=== PATIENT | male | born 1935 | race African-American/Black ===

== ENCOUNTER → 2016-11-04 | Outpatient (CLI) | payer MEDICARE ==
[~2016-11-04] MED LIST: AMLO5TAB22 PO; AZIT500T2 PO; CEFU1TAB20 PO; CLOP75 PO; CRES10TA OR; DOXA1 PO; LISI10TA PO; LISI10TA3 PO; LISI40TA PO; METO50TA11 PO; PLAV75TA29 PO; ROSU10 PO; ST JTAB PO; UMEC1AER INH; VIAG50TA PO; WARF-18 PO
[2016-11-04 08:58] LABS: MEAN CELL VOLUME 75.5 FL (80.0-100.0); MEAN CORPUSCULAR HEMOGLOBIN 24.8 PG (27.0-34.0); MEAN CORPUSCULAR HGB CONC 32.9 % (32.0-36.0); PLATELET COUNT 205 TH/MM3 (150-450); RED BLOOD COUNT 4.91 MIL/MM3 (4.50-5.90); RED CELL DISTRIBUTION WIDTH 14.8 % (11.6-17.2); WHITE BLOOD COUNT 5.3 TH/MM3 (4.0-11.0)
[2016-11-04 08:59] LABS: REVIEW FLAG FINAL
[2016-11-04 09:33] LABS: ALKALINE PHOSPHATASE 79 U/L (45-117); ALT (GPT) 23 U/L (12-78); ANION GAP 7 MEQ/L (5-15); AST (GOT) 28 U/L (15-37); BICARBONATE 30.4 MEQ/L (21.0-32.0); BLOOD UREA NITROGEN 31 MG/DL (7-18); CHLORIDE 102 MEQ/L (98-107); GLOMERULAR FILTRATION RATE 63 ML/MIN (>89); GLUCOSE,FASTING 107 MG/DL (74-99); HDL CHOLESTEROL 49.3 MG/DL (40.0-60.0); LDL CHOLESTEROL 58 MG/DL (0-99); LDL CHOLESTEROL DIRECT 63 MG/DL (0-99); POTASSIUM 4.1 MEQ/L (3.5-5.1); SODIUM (NA) 139 MEQ/L (136-145); TOTAL BILIRUBIN ADULT 0.5 MG/DL (0.2-1.0)
[2016-11-04 17:04] LABS: HEMOGLOBIN A1a 1.2 %; HEMOGLOBIN A1b 2.3 %; HEMOGLOBIN Ao 82.4 %; HEMOGLOBIN LA1C 2.3 %; HEMOGLOBIN P3 6.2 %
== END ==
LOC: CLAB 08:07
PROVIDERS: ATTEND Family Medicine
DX: E11.9 Type 2 diabetes mellitus without complications (principal); E78.2 Mixed hyperlipidemia; I10 Essential (primary) hypertension; I73.9 Peripheral vascular disease, unspecified; L85.0 Acquired ichthyosis
CPT/HCPCS: 36415; 80053; 80061; 83036; 83721; 84443; 85027

== ENCOUNTER → 2017-02-03 | Outpatient (CLI) | payer MEDICARE ==
[2017-02-03 08:53] LABS: HEMATOCRIT 35.8 % (39.0-51.0); MEAN CELL VOLUME 74.3 FL (80.0-100.0); MEAN CORPUSCULAR HEMOGLOBIN 23.6 PG (27.0-34.0); MEAN CORPUSCULAR HGB CONC 31.8 % (32.0-36.0); PLATELET COUNT 258 TH/MM3 (150-450); RED BLOOD COUNT 4.82 MIL/MM3 (4.50-5.90); RED CELL DISTRIBUTION WIDTH 15.5 % (11.6-17.2); WHITE BLOOD COUNT 5.8 TH/MM3 (4.0-11.0)
[2017-02-03 08:54] LABS: REVIEW FLAG FINAL
[2017-02-03 09:24] LABS: ALKALINE PHOSPHATASE 91 U/L (45-117); ALT (GPT) 21 U/L (12-78); ANION GAP 6 MEQ/L (5-15); AST (GOT) 27 U/L (15-37); BICARBONATE 29.9 MEQ/L (21.0-32.0); BLOOD UREA NITROGEN 24 MG/DL (7-18); CHLORIDE 104 MEQ/L (98-107); GLOMERULAR FILTRATION RATE 59 ML/MIN (>89); GLUCOSE,FASTING 103 MG/DL (74-99); HDL CHOLESTEROL 47.5 MG/DL (40.0-60.0); LDL CHOLESTEROL 62 MG/DL (0-99); LDL CHOLESTEROL DIRECT 56 MG/DL (0-99); POTASSIUM 4.8 MEQ/L (3.5-5.1); SODIUM (NA) 140 MEQ/L (136-145); TOTAL BILIRUBIN ADULT 0.5 MG/DL (0.2-1.0)
[2017-02-03 11:32] LABS: HEMOGLOBIN A1a 1.2 %; HEMOGLOBIN A1b 2.2 %; HEMOGLOBIN Ao 82.7 %; HEMOGLOBIN LA1C 2.3 %; HEMOGLOBIN P3 6.2 %
== END ==
LOC: CLAB 08:04
PROVIDERS: ATTEND Family Medicine
DX: E11.9 Type 2 diabetes mellitus without complications (principal); I73.9 Peripheral vascular disease, unspecified; I10 Essential (primary) hypertension; E78.2 Mixed hyperlipidemia
CPT/HCPCS: 36415; 80053; 80061; 83036; 83721; 85027

== ENCOUNTER 2017-02-14 16:38 | Inpatient (IN) | payer MEDICARE ==
[~2017-02-14] VITALS: Ht 177.8 cm; Wt 56.3 kg
[2017-02-14] VITALS (8 sets, daily range): BP systolic 103–164; BP diastolic 69–107; PULSE 73–119; RESP 18–20; TEMP 97.7–98.5; O2SAT 96–100
[~2017-02-14 16:38] MED LIST changes: -AZIT500T2 PO; -CEFU1TAB20 PO; -LISI10TA3 PO; -LISI40TA PO; -METO50TA11 PO; -PLAV75TA29 PO; -ROSU10 PO; -UMEC1AER INH; -VIAG50TA PO; -WARF-18 PO
[2017-02-14] MEDS ORDERED: SODIUM CHLOR 0.9% 1000 ML INJ 1,000 ML IV SCH (16:46)
[2017-02-14] MEDS ORDERED: SODIUM CHLORIDE 0.9% FLUSH 5 ML FLUSH IV FLUSH PRN (17:00)
[2017-02-14] MEDS ORDERED: ROSU10 PO (17:04)
[2017-02-14] MEDS ORDERED: PLAV75TA29 PO (17:04)
[2017-02-14] MEDS ORDERED: VIAG50TA PO (17:04)
[2017-02-14] MEDS ORDERED: UMEC1AER INH (17:04)
[2017-02-14] MEDS ORDERED: LISI40TA PO (17:04)
[2017-02-14] MEDS ORDERED: DILTIAZEM HCL 25 MG/5 ML VIAL IV ONE ×2 (17:15)
[2017-02-14 17:16] LABS: AUTOMATED NEUTROPHIL # 10.4 TH/MM3 (1.8-7.7); BASOPHIL # 0.1 TH/MM3 (0-0.2); BASOPHIL % 0.4 % (0.0-2.0); EOSINOPHIL % 0.4 % (0.0-4.0); HEMATOCRIT 36.3 % (39.0-51.0); LYMPH % 10.3 % (9.0-44.0); LYMPHOCYTE # 1.3 TH/MM3 (1.0-4.8); MEAN CELL VOLUME 72.8 FL (80.0-100.0); MEAN CORPUSCULAR HEMOGLOBIN 23.7 PG (27.0-34.0); MEAN CORPUSCULAR HGB CONC 32.6 % (32.0-36.0); MONO % 7.6 % (0.0-8.0); NEUT % 81.3 % (16.0-70.0); PLATELET COUNT 276 TH/MM3 (150-450); RED BLOOD COUNT 4.98 MIL/MM3 (4.50-5.90); RED CELL DISTRIBUTION WIDTH 15.2 % (11.6-17.2); WHITE BLOOD COUNT 12.8 TH/MM3 (4.0-11.0)
--- NOTE | 2017-02-14 17:17 | RADRPT ---
EXAM DATE/TIME: 02/14/2017 17:02 [facility] COMPARISON: No previous studies available for comparison. INDICATIONS : Weakness. Syncope. MEDICAL HISTORY : None. SURGICAL HISTORY : None. ENCOUNTER: Initial ACUITY: 1 day PAIN SCORE: 6/10 LOCATION: Bilateral chest FINDINGS: There is mild basilar airspace disease, right greater than left. Primary differential diagnosis is br onchopneumonia or aspiration. No effusion. Heart size mildly enlarged. Atherosclerotic and tortuous a tanya. CONCLUSION: 1. Mild basilar airspace disease, right greater than left. Differential diagnosis includes bronchopne umonia and aspiration. Percy Pires MD on February 14, 2017 at 17:13 Board Certified Radiologist. This report was verified electronically.
[2017-02-14 17:19] LABS: HEMO FLAGS AUTO DIFF
[2017-02-14 17:24] LABS: APTT (PATIENT) 27.3 SEC (24.3-30.1); INTERNATIONAL NORMALIZED RATIO 1.1 RATIO; PROTHROMBIN TIME - PATIENT 11.9 SEC (9.8-11.6)
--- NOTE | 2017-02-14 17:38 | RADRPT ---
EXAM DATE/TIME: 02/14/2017 17:14 [facility] COMPARISON: No previous studies available for comparison. INDICATIONS : Confusion and lethargy. RADIATION DOSE: 56.35 CTDIvol (mGy) MEDICAL HISTORY : Hypertension. SURGICAL HISTORY : None. ENCOUNTER: Initial ACUITY: 1 day PAIN SCALE: 0/10 LOCATION: cranial TECHNIQUE: Multiple contiguous axial images were obtained of the head. Using automated exposure control and adj ustment of the mA and/or kV according to patient size, radiation dose was kept as low as reasonably a chievable to obtain optimal diagnostic quality images. FINDINGS: There is patchy mild diminished attenuation in periventricular white matter which is likely microvasc ular ischemic in etiology. No evidence of intracranial mass or hemorrhage. There is nothing to sugges t acute infarction. Ventricles are symmetric and normal. There is minimal fluid in the left maxillary antrum. Extracranial structures are otherwise focally unremarkable. CONCLUSION: No acute intracranial findings. Chronic appearing white matter disease Ye Nuñez MD on February 14, 2017 at 17:34 Board Certified Radiologist. This report was verified electronically.
[2017-02-14 17:51] LABS: SCAN/DIFF AUTO DIFF CONFIRMED; TOXIC VACUOLATION PRESENT (NONE SEEN)
[2017-02-14 18:04] LABS: BICARBONATE 29.2 MEQ/L (21.0-32.0)
[2017-02-14] MEDS ORDERED: AZITHROMYCIN INJ 500 MG in SODIUM CHLOR 0.9% 250 ML INJ 250 ML IV ONE (18:15)
[2017-02-14] MEDS ORDERED: cefTRIAXone INJ 1,000 MG in SODIUM CHLORIDE 0.9% INJ 100 ML IV ONE (18:15)
--- NOTE | 2017-02-14 18:26 | PD ---
HPI Chief Complaint: General Weakness Time Seen by Provider: 16:46 Travel History International Travel<30 days: No Contact w/Intl Traveler<30days: No Traveled to known affect area: No History of Present Illness HPI 81-year-old male arrives by EMS. He's had bouts of confusion for one day. Family reports he has been slow forming sentences, unusual for him. EMS notes he has a troponin fibrillation with a heart rate of about 120. This appears to be new in onset. Patient's had decreased appetite for a few weeks. Evidently he's lost some weight. He's had a cough for about 3 weeks as well. The patient did have an appointment with his primary care provider Dr. Serna. Days ago however missed it due to cough and rhinorrhea. At the time of ER evaluation he has no chest pain or shortness of breath. PFSH Past Medical History Hx Anticoagulant Therapy: Yes Cardiovascular Problems: Yes Hypertension: Yes Social History Alcohol Use: No Tobacco Use: No (FORMER) Allergies-Medications (Allergen,Severity, Reaction): Coded Allergies: No Known Allergies (Verified , 11/03/13) Reported Meds & Prescriptions Reported Meds & Active Scripts Active Reported Anoro Ellipta Inh (Umeclidinium/Vilanterol) 62.5-25 Mcg/Act Aero 1 Puff INH DAILY Viagra (Sildenafil Citrate) 50 Mg Tab 50 Mg PO DAILY PRN Plavix (Clopidogrel Bisulfate) 75 Mg Tab 75 Mg PO DAILY Crestor (Rosuvastatin Calcium) 10 Mg Tab 10 Mg PO DAILY Lisinopril 40 Mg Tab 40 Mg PO DAILY Review of Systems Except as stated in HPI: all other systems reviewed are Neg General / Constitutional: No: Fever Cardiovascular: Positive: Irregular Rhythm, No: Chest Pain or Discomfort Physical Exam Narrative GENERAL: 81-year-old male well-nourished well-developed SKIN: Focused skin assessment warm/dry. HEAD: Atraumatic. Normocephalic. EYES: Pupils equal and round. No scleral icterus. No injection or drainage. ENT: No nasal bleeding or discharge. Mucous membranes pink and moist. NECK: Trachea midline. No JVD. CARDIOVASCULAR: Irregular rhythm. Tachycardia. RESPIRATORY: Normal respiratory rate. Coarse breath sounds at the right base. GASTROINTESTINAL: Abdomen soft, non-tender, nondistended. Hepatic and splenic margins not palpable. MUSCULOSKELETAL: No obvious deformities. No clubbing. No cyanosis. No edema. NEUROLOGICAL: Awake and alert. No obvious cranial nerve deficits. Motor grossly within normal limits. Normal speech. PSYCHIATRIC: Appropriate mood and affect; insight and judgment normal. Data Data Last Documented VS Vital Signs Date Time Temp Pulse Resp B/P Pulse Ox O2 Delivery O2 Flow Rate FiO2 02/14/17 17:33 116 18 164/102 98 Room Air 02/14/17 16:44 98.5 Vital signs reviewed Orders Electrocardiogram (02/14/17 16:46) Basic Metabolic Panel (Bmp) (02/14/17 16:46) Complete Blood Count With Diff (02/14/17 16:46) Creatine Kinase (Cpk) (02/14/17 16:46) Prothrombin Time / Inr (Pt) (02/14/17 16:46) Act Partial Throm Time (Ptt) (02/14/17 16:46) Troponin I (02/14/17 16:46) Chest, Single Ap (02/14/17 16:46) Ct Brain W/O Iv Contrast(Rout) (02/14/17 16:46) Blood Glucose (02/14/17 16:46) Ecg Monitoring (02/14/17 16:46) Iv Access Insert/Monitor (02/14/17 16:46) Oximetry (02/14/17 16:46) Sodium Chloride 0.9% Flush (Ns Flush) (02/14/17 17:00) Sodium Chlor 0.9% 1000 Ml Inj (Ns 1000 M (02/14/17 16:46) Diltiazem Inj (Cardizem Inj) (02/14/17 17:15) Diltiazem Inj (Cardizem Inj) (02/14/17 17:15) Blood Culture (02/14/17 18:07) Ceftriaxone Inj (Rocephin Inj) (02/14/17 18:15) Azithromycin Inj (Zithromax Inj) (02/14/17 18:15) CKMB (02/14/17 17:00) CKMB% (02/14/17 17:00) Labs Laboratory Tests Test 02/14/17 17:00 White Blood Count 12.8 TH/MM3 Red Blood Count 4.98 MIL/MM3 Hemoglobin 11.8 GM/DL Hematocrit 36.3 % Mean Corpuscular Volume 72.8 FL Mean Corpuscular Hemoglobin 23.7 PG Mean Corpuscular Hemoglobin 32.6 % Concent Red Cell Distribution Width 15.2 % Platelet Count 276 TH/MM3 Mean Platelet Volume 8.3 FL Neutrophils (%) (Auto) 81.3 % Lymphocytes (%) (Auto) 10.3 % Monocytes (%) (Auto) 7.6 % Eosinophils (%) (Auto) 0.4 % Basophils (%) (Auto) 0.4 % Neutrophils # (Auto) 10.4 TH/MM3 Lymphocytes # (Auto) 1.3 TH/MM3 Monocytes # (Auto) 1.0 TH/MM3 Eosinophils # (Auto) 0.0 TH/MM3 Basophils # (Auto) 0.1 TH/MM3 CBC Comment AUTO DIFF Differential Comment AUTO DIFF CONFIRMED Toxic Vacuolation PRESENT Platelet Estimate Prothrombin Time 11.9 SEC Prothromb Time International 1.1 RATIO Ratio Activated Partial 27.3 SEC Thromboplast Time Sodium Level 138 MEQ/L Potassium Level 4.0 MEQ/L Chloride Level 98 MEQ/L Carbon Dioxide Level 29.2 MEQ/L Anion Gap 11 MEQ/L Blood Urea Nitrogen 75 MG/DL Creatinine 2.08 MG/DL Estimat Glomerular Filtration 37 ML/MIN Rate Random Glucose 92 MG/DL Calcium Level 8.9 MG/DL Total Creatine Kinase 553 U/L Troponin I 0.32 NG/ML [facility] Medical Decision Making Medical Screen Exam Complete: Yes Emergency Medical Condition: Yes Medical Record Reviewed: Yes Differential Diagnosis NSTEMI, unstable angina, coronary vasospasm, PE, PTX, aortic dissection, pericarditis, myocarditis, endocarditis, PNA, esophageal disease, aneurysm, musculoskeletal etiologies, anxiety, cocaine/sympathomimetic abuse Narrative Course CBC & BMP Diagram 02/14/17 17:00 Tn 0.32 Total CK 553 INR 1.1 EKG reveals atrial fibrillation rate 120 LAFB Last [address] 02/14/171645 Signed Impressions: Service Date/Time: Tuesday, February 14, 2017 17:14 - CONCLUSION: No acute intracranial findings. Chronic appearing white matter disease Ye Nuñez MD Chest X-Ray 02/14/171645 Signed Impressions: Service Date/Time: Tuesday, February 14, 2017 17:02 - CONCLUSION: 1. Mild basilar airspace disease, right greater than left. Differential diagnosis includes bronchopneumonia and aspiration. Percy Pires MD The patient has a bibasal pneumonia. Rocephin and azithromycin ordered. Blood cultures drawn. The patient received diltiazem 10 mg 2 and the heart rate has decreased to about 80. Patient will be admitted for treatment of pneumonia and for further investigation into apparent new onset A. fib. Casemalachi d/w Dr Harper for FMR. Diagnosis Primary Impression: Pneumonia Qualified Code: J18.9 - Pneumonia due to infectious organism, unspecified laterality, unspecified part of lung Additional Impression: Atrial fibrillation with RVR Admitting Information Admitting Physician Requests: Admit Maksim Choe MD February 14, 2017 18:26
--- NOTE | 2017-02-14 18:38 | HHI.HP ---
[facility] Service Family Medicine Primary Care Physician Juan Serna MD Admission Diagnosis Atrial fibrillation with RVR and pneumonia Diagnoses: International Travel<30 Days: No Contact w/Intl Traveler<30days: No Known Affected Area: No History of Present Illness Of note very poor historian, history obtained from patient and nephew This is an 81-year-old -[place] male with past medical history significant for hypertension and peripheral artery disease (on Plavix). He has been having some confusion for the last day or so. Has been a little slow in his forming of sentences per the nephew. The nephew thinks that this has been going on for about 24 hours. He's also reports been feeling very fatigued lately for the last 2 days, as well as like his heart has been racing and beating funny. He went to his primary care physician today and listened to his heart and told him to go to the hospital. EMS was called and he was found to have atrial fibrillation with a heart rate in the 120s. He denies ever having an history of atrial fibrillation. He denies feeling any numbness or tingling in his arms or legs. He does admit to severe PAD in his lower extremities and has poor feeling in his lower extremities at baseline. Also the patient has been having a cough for the last 3 weeks. He's had some sputum production. He has felt mildly short of breath throughout that time frame. He denies ever having any fevers. He does admit to decreased appetite. He's also been having nasal congestion and runny nose for last several days. He does not feel that this cough is improved any in the last 3 weeks. He started taking Robitussin but has not been helpful. (Philip Harper MD R2) Review of Systems ROS Limitations: Poor Historian Constitutional: COMPLAINS OF: Chills, Change in appetite (decreased), DENIES: Fever, Dizziness Endocrine: DENIES: Polyuria Eyes: DENIES: Blurred vision, Eye pain Ears, nose, mouth, throat: COMPLAINS OF: Nasal discharge, Throat pain, Hoarseness, Running Nose, DENIES: Tinnitus, Toothache Respiratory: COMPLAINS OF: Cough, Sputum production, Shortness of breath Cardiovascular: COMPLAINS OF: Palpitations, DENIES: Chest pain Gastrointestinal: DENIES: Abdominal pain, Black stools, Bloody stools, Diarrhea , Nausea, Vomiting Genitourinary: DENIES: Hematuria Musculoskeletal: COMPLAINS OF: Back pain, DENIES: Joint pain, Muscle aches, Stiffness Integumentary: DENIES: Rash Hematologic/lymphatic: DENIES: Bruising Neurologic: DENIES: Abnormal gait, Headache, Seizures, Tremor, Poor Balance Psychiatric: DENIES: Anxiety, Depression (Phliip Harper MD R2) Past Family Social History Past Medical History HTN PAD Past Surgical History patient and family uncertain Reported Medications Reported Meds & Active Scripts Active Reported Anoro Ellipta Inh (Umeclidinium/Vilanterol) 62.5-25 Mcg/Act Aero 1 Puff INH DAILY Viagra (Sildenafil Citrate) 50 Mg Tab 50 Mg PO DAILY PRN Plavix (Clopidogrel Bisulfate) 75 Mg Tab 75 Mg PO DAILY Crestor (Rosuvastatin Calcium) 10 Mg Tab 10 Mg PO DAILY Lisinopril 40 Mg Tab 40 Mg PO DAILY (Philip Harper MD R2) Allergies: Coded Allergies: No Known Allergies (Verified , 11/03/13) Family History noncontributory Social History Arabella Plascencia in a House alone since pasted away 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 HEAD: Atraumatic. Normocephalic. EYES: Pupils equal and round. No scleral icterus. No injection or drainage. ENT: No nasal bleeding or discharge. Mucous membranes pink and moist. NECK: Trachea midline. No JVD. CARDIOVASCULAR: Irregular rate and rhythm. Tachycardia. RESPIRATORY: Normal respiratory rate. Coarse breath sounds at the right base. With decreased breath sounds in the lower lobes GASTROINTESTINAL: Abdomen soft, non-tender, nondistended. Hepatic and splenic margins not palpable. MUSCULOSKELETAL: No obvious deformities. No clubbing. No cyanosis. No edema. NEUROLOGICAL: Awake and alert. No obvious cranial nerve deficits. Normal sensation in face and arms, decreased sensation in lower extremities (this is similar to his baseline). Motor grossly within normal limits. Slow speech. PSYCHIATRIC: Appropriate mood and affect; insight and judgment normal. Laboratory Laboratory Tests Test 02/14/17 17:00 White Blood Count 12.8 Red Blood Count 4.98 Hemoglobin 11.8 Hematocrit 36.3 Mean Corpuscular Volume 72.8 Mean Corpuscular Hemoglobin 23.7 Mean Corpuscular Hemoglobin 32.6 Concent Red Cell Distribution Width 15.2 Platelet Count 276 Mean Platelet Volume 8.3 Neutrophils (%) (Auto) 81.3 Lymphocytes (%) (Auto) 10.3 Monocytes (%) (Auto) 7.6 Eosinophils (%) (Auto) 0.4 Basophils (%) (Auto) 0.4 Neutrophils # (Auto) 10.4 Lymphocytes # (Auto) 1.3 Monocytes # (Auto) 1.0 Eosinophils # (Auto) 0.0 Basophils # (Auto) 0.1 CBC Comment AUTO DIFF Differential Comment AUTO DIFF CONFIRMED Toxic Vacuolation PRESENT Platelet Estimate Prothrombin Time 11.9 Prothromb Time International 1.1 Ratio Activated Partial 27.3 Thromboplast Time Sodium Level 138 Potassium Level 4.0 Chloride Level 98 Carbon Dioxide Level 29.2 Anion Gap 11 Blood Urea Nitrogen 75 Creatinine 2.08 Estimat Glomerular Filtration 37 Rate Random Glucose 92 Calcium Level 8.9 Total Creatine Kinase 553 Creatine Kinase MB 4.0 Creatine Kinase MB % 0.7 Troponin I 0.32 (Philip Harper MD R2) Result Diagram: 02/14/170 02/14/171699 Imaging Last Impressions Head CT 02/14/171645 Signed Impressions: Service Date/Time: Tuesday, February 14, 2017 17:14 - CONCLUSION: No acute intracranial findings. Chronic appearing white matter disease Ye Nuñez MD Chest X-Ray 02/14/171645 Signed Impressions: Service Date/Time: Tuesday, February 14, 2017 17:02 - CONCLUSION: 1. Mild basilar airspace disease, right greater than left. Differential diagnosis includes bronchopneumonia and aspiration. Percy Pires MD (Philip Harper MD R2) Assessment and Plan Assessment and Plan This is an 81-year-old -[place] male with past medical history significant for hypertension and peripheral artery disease (on Plavix). Being admitted for new onset atrial fibrillation and right-sided bronchopneumonia Code Status Full code Discussed Condition With wdw: Dr. Bustillos (Philip Harper MD R2) Attending Attestation THIS CASE WAS DISCUSSED WITH THE RESIDENT PHYSICIANS. I HAVE REVIEWED THE RECORD AND AGREE WITH THE ABOVE NOTE AND PLAN OF CARE WAS DISCUSSED. I HAVE AUTHORIZED THE ORDER FOR ADMISSION TO AN IN-PATIENT STATUS. (Ryan Bustillos MD) Problem List: (1) Atrial fibrillation with RVR Status: Acute Plan: New-onset atrial fibrillation. Tachycardic on admission. Irregularly irregular rate. Status post diltiazem 2 in the ED. Patient is currently on Plavix for peripheral artery disease. Per active trials Plavix is not an appropriate medication for atrial fibrillation, therefore will bridge to warfarin at this time. We'll further discuss this with team, recreational director, and patient. * Admitted to inpatient * Consult cardiology recommendations appreciated * Started diltiazem drip * Transition to Metoprolol 25 mg twice a day * Therapeutic Lovenox at 1 mg/kg every 24 hours (renal dosing) * Warfarin 5 mg daily * TSH pending * Trending troponins, CK-MB * Placed on telemetry * 2D echo pending * CBC, BMP ordered for a.m. (2) Pneumonia Status: Acute Plan: Patient found to have pneumonia on chest x-ray. White blood cell count is elevated at 12.8. Patient is afebrile. Pulse elevated but due to atrial fibrillation. Status post bolus in the ED. believed to be community-acquired. * Ceftriaxone 1 g every 12 hours * Azithromycin 500 mg by mouth daily * Duo nebs for shortness of breath * Robitussin for cough * Zofran for nausea or vomiting * IV fluids at 75 MLS per hour * Lactic acid pending * Monitor for worsening signs of sepsis (3) Slow rate of speech Status: Acute Plan: Family is reporting slow rate of speech which is a new onset. CT head does not show any signs of stroke, does show chronic appearing white matter disease. No other neurological signs for CVA at this time. * MRI brain pending * Neuro checks every 4 * Continue to monitor at this time (4) YG (acute kidney injury) Status: Acute Plan: Patient has acute kidney injury with creatinine of 2.08 and BUN of 75. Patient's baseline is 1.3 and 20s to 30s respectively. * IV fluids as above * Monitor at this time * Avoiding nephro toxic medications (5) Hypertension Status: Chronic Plan: Long-standing history of hypertension * Holding his lisinopril at this time due to acute kidney injury, can restart with improvement in creatinine and BUN * Clonidine per hypertensive protocol (6) Nutrition, metabolism, and development symptoms Status: Acute Plan: Diet: Heart healthy diet Monitor electrolytes was accordingly Fluids: IV NS at 75 MLS per hour Vitals every 4 Bed rest with bathroom privileges DVT prophylaxis with SCDs, on therapeutic Lovenox with bridge to warfarin for A. fib CODE STATUS: Full code Disposition: Pending warfarin bridge or transition to other appropriate anticoagulation. Improvement of community-acquired pneumonia (Philip Harper MD R2) Physician Certification 2 Midnight Certification Type: Admission for Inpatient Services Order for Inpatient Services The services are ordered in accordance with Medicare regulations or non- Medicare payer requirements, as applicable. In the case of services not specified as inpatient-only, they are appropriately provided as inpatient services in accordance with the 2-midnight benchmark. Estimated LOS (days): 3 days is the estimated time the patient will need to remain in the hospital, assuming treatment plan goals are met and no additional complications. Post-Hospital Plan: Home (Philip Harper MD R2) Problem Qualifiers (1) Hypertension: Qualified Code: I10 - Essential hypertension Philip Harper MD R2 February 14, 2017 18:38 Ryan Bustillos MD February 15, 2017 14:08
[2017-02-14] MEDS ORDERED: SODIUM CHLORIDE 0.9% FLUSH 10 ML FLUSH PRN (19:00)
[2017-02-14] MEDS ORDERED: ONDANSETRON HCL 4 MG/2 ML VIAL IV PRN (19:00)
[2017-02-14] MEDS ORDERED: HEPARIN SODIUM - SQ 10,000 UNITS/ML VIAL SQ SCH (19:00)
[2017-02-14] MEDS ORDERED: RESP: ALBUTEROL 2.5 MG/IPRATROPIUM 0.5 MG NEB (PRN) INH (19:00)
[2017-02-14] MEDS: SODIUM CHLOR 0.9% 1000 ML INJ 1,000 ML IV SCH (19:00)
[2017-02-14] MEDS ORDERED: DILTIAZEM INJ 125 MG in SODIUM CHLORIDE 0.9% INJ 100 ML IV SCH (19:00)
[2017-02-14] MEDS ORDERED: cloNIDine HCL 0.1 MG TAB PO PRN (20:15)
--- NOTE | 2017-02-14 20:38 | RADRPT ---
EXAM DATE/TIME: 02/14/2017 20:01 [facility] COMPARISON: CT BRAIN W/O CONTRAST, February 14, 2017, 17:14. INDICATIONS : Stroke. MEDICAL HISTORY : Hypertension. SURGICAL HISTORY : Carotid endarterectomy. ENCOUNTER: Subsequent ACUITY: 1 day PAIN SCORE: 0/10 LOCATION: cranial TECHNIQUE: Multiplanar, multisequence MRI of the brain was performed without contrast. FINDINGS: CEREBRUM: The ventricles are normal for age. No evidence of midline shift, mass lesion, hemorrhage or acute in farction. No extraaxial fluid collections are seen. The pituitary gland and suprasellar cistern are normal in configuration. WHITE MATTER: Extensive periventricular high T2 signal abnormality involving both cerebral hemispheres. POSTERIOR FOSSA: The cerebellum and brainstem are intact. The 4th ventricle is midline. The cerebellopontine angle is unremarkable. The cerebellar tonsils are normal in position. DIFFUSION IMAGING: No focal areas of restricted diffusion are seen. No evidence of acute infarction. EXTRACRANIAL: The visualized portions of the orbits and paranasal sinuses are unremarkable. CONCLUSION: 1. No acute intracranial abnormality. 2. Extensive chronic small vessel ischemic change. Catarino Mittal Jr., MD on February 14, 2017 at 20:34 Board Certified Radiologist. This report was verified electronically.
[2017-02-14] MEDS: ENOXAPARIN SODIUM 60 MG/0.6 ML SYRINGE SQ SCH (21:50)
[2017-02-14] MEDS: METOPROLOL TARTRATE 25 MG TAB PO SCH (21:50)
[2017-02-14] MEDS: SODIUM CHLORIDE 0.9% FLUSH 10 ML FLUSH SCH (21:50)
[2017-02-14] MEDS: WARFARIN SOD 5 MG TAB PO SCH (21:50)
[2017-02-15] VITALS (23 sets, daily range): BP systolic 107–151; BP diastolic 63–83; PULSE 72–99; RESP 16–20; TEMP 97.8–98; O2SAT 96–100
[2017-02-15 00:18] LABS: CKMB 4.7 NG/ML (0.5-3.6)
[2017-02-15 05:57] LABS: HEMATOCRIT 36.5 % (39.0-51.0); MEAN CELL VOLUME 73.4 FL (80.0-100.0); MEAN CORPUSCULAR HEMOGLOBIN 23.7 PG (27.0-34.0); MEAN CORPUSCULAR HGB CONC 32.2 % (32.0-36.0); PLATELET COUNT 250 TH/MM3 (150-450); RED BLOOD COUNT 4.98 MIL/MM3 (4.50-5.90); RED CELL DISTRIBUTION WIDTH 15.3 % (11.6-17.2); REVIEW FLAG FINAL; WHITE BLOOD COUNT 8.8 TH/MM3 (4.0-11.0)
[2017-02-15 06:20] LABS: INTERNATIONAL NORMALIZED RATIO 1.1 RATIO; PROTHROMBIN TIME - PATIENT 12.2 SEC (9.8-11.6)
[2017-02-15 06:29] LABS: BICARBONATE 27.5 MEQ/L (21.0-32.0); POTASSIUM 3.5 MEQ/L (3.5-5.1)
[2017-02-15 06:41] LABS: CKMB 3.7 NG/ML (0.5-3.6)
[2017-02-15] MEDS: SODIUM CHLOR 0.9% 1000 ML INJ 1,000 ML IV SCH ×2 (08:20→21:40)
[2017-02-15] MEDS ORDERED: NON-FORMULARY DRUG (Rosuvastatin (Crestor) 10 MG) PO SCH (09:00)
[2017-02-15] MEDS: UMECLIDINIUM 62.5 MCG/VILANTEROL 25 MCG INHALER INH SCH (09:00)
[2017-02-15] MEDS: SODIUM CHLORIDE 0.9% FLUSH 10 ML FLUSH SCH ×2 (09:00→21:18)
[2017-02-15] MEDS ORDERED: LISINOPRIL 20 MG TAB PO SCH (09:00)
[2017-02-15] MEDS ORDERED: NON-FORMULARY DRUG (Lisinopril 40 MG) PO SCH (09:00)
[2017-02-15] MEDS: METOPROLOL TARTRATE 25 MG TAB PO SCH ×3 (10:13→18:23)
[2017-02-15] MEDS: ATORVASTATIN 20 MG TAB PO SCH (10:13)
[2017-02-15] MEDS: AZITHROMYCIN 250 MG TAB PO SCH (10:14)
--- NOTE | 2017-02-15 10:20 | HHI.FPPN ---
Subjective Remarks FM Attending Note: Patient seen and examined. S: Chart and all resident physician notes reviewed. In summary this is a 81 year old male who was admitted with an admission diagnosis of Pna,Afib Rvr. This patient has a past history of hypertension and peripheral vascular disease. He apparently has felt fatigued with cough and congestion over the last several days. He also reported that he felt his heart racing. He was seen by his primary care physician who sent him to the hospital for further evaluation due to an irregular heartbeat consistent with atrial fibrillation. This morning the patient reports he is feeling better. He still has cough and congestion but no longer feels his heart racing. No chest pain has been noted. No dyspnea at rest is noted. Objective Vitals Vital Signs Date Time Temp Pulse Resp B/P Pulse Ox O2 Delivery O2 Flow Rate FiO2 02/15/17 06:00 87 02/15/17 05:00 82 02/15/17 04:00 77 02/15/17 03:00 97.9 85 18 113/63 100 02/15/17 03:00 73 02/15/17 02:00 85 02/15/17 01:00 84 02/15/17 00:00 72 02/14/17 23:00 97.7 74 18 112/69 97 02/14/17 23:00 73 02/14/17 22:00 92 02/14/17 21:19 91 18 123/95 96 02/14/17 21:00 100 02/14/17 19:04 82 18 152/107 97 Room Air 02/14/17 17:33 116 18 164/102 98 Room Air 02/14/17 16:54 114 20 96 Room Air 02/14/17 16:53 20 96 Room Air 02/14/17 16:44 98.5 119 20 130/87 96 I/O 02/14/17 02/14/17 02/14/17 02/15/17 02/15/17 02/15/17 07:00 15:00 23:00 07:00 15:00 23:00 Intake Total 720 ml Output Total 200 ml Balance 520 ml Intake Oral 720 ml Output Urine Total 200 ml Result Diagram: 02/15/17 0505 02/15/17 0505 Other Results Item Value Date Time Total Creatine Kinase 553 U/L H 02/14/17 1700 Total Creatine Kinase 499 U/L H 02/14/17 2327 Total Creatine Kinase 458 U/L H 02/15/17 0505 Troponin I 0.32 NG/ML H 02/14/17 1700 Troponin I 0.30 NG/ML H 02/14/17 232 Troponin I 0.25 NG/ML H 02/15/17 0505 Thyroid Stimulating Hormone 3rd Gen 0.268 uIU/ML L 02/14/17 232 Initial EKG showed atrial fibrillation with rapid ventricular response with aberrant conduction or ventricular premature complexes. Also noted was a left anterior fascicular block. Poor R-wave progression over the precordial leads but no acute ischemic changes are appreciated. Imaging Last [address] 02/14/17 164 Signed Impressions: Service Date/Time: Tuesday, February 14, 2017 17:14 - CONCLUSION: No acute intracranial findings. Chronic appearing white matter disease Ye Nuñez MD Chest X-Ray 02/14/171645 Signed Impressions: Service Date/Time: Tuesday, February 14, 2017 17:02 - CONCLUSION: 1. Mild basilar airspace disease, right greater than left. Differential diagnosis includes bronchopneumonia and aspiration. Percy Pires MD Brain MRI 02/14/17 0000 Signed Impressions: Service Date/Time: Tuesday, February 14, 2017 20:01 - CONCLUSION: 1. No acute intracranial abnormality. 2. Extensive chronic small vessel ischemic change. Catarino Mittal Jr., MD Objective Remarks O. CONSTITUTIONAL/GEN: normally nourished, in NAD. EYES: conjunctiva normal, PERRLA, EOMI. ENT: Mouth and pharynx normal. NECK: thyroid midline, carotids symmetrical. LUNGS: relatively clear with scattered rhonchi, respiratory effort is normal. CARDIOVASCULAR: RR without murmur or gallop. No significant edema. GI/ABD: soft without masses, without organomegaly. NEURO: No focal deficits. SKIN: color normal, no rashes noted. HEME/LYMPH: no bruising, petechia or significant adenopathy MUSC: back is normal in appearance. Extremities are normal in appearance. PSYCH/MENTAL STATUS: Awake and alert. Will answer questions appropriately. A/P Assessment and Plan This is an 81-year-old -Spanish male with past medical history significant for hypertension and peripheral artery disease (on Plavix). Being admitted for new onset atrial fibrillation and right-sided bronchopneumonia Problem List: (1) Atrial fibrillation with RVR Status: Acute Plan: New-onset atrial fibrillation. Tachycardic on admission. Irregularly irregular rate. Status post diltiazem 2 in the ED. Patient is currently on Plavix for peripheral artery disease. Per active trials Plavix is not an appropriate medication for atrial fibrillation, therefore will bridge to warfarin at this time. 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 * Admitted to inpatient * Consult cardiology recommendations appreciated * Started diltiazem drip * Transition to Metoprolol 25 mg twice a day * Therapeutic Lovenox at 1 mg/kg every 24 hours (renal dosing) * Warfarin 5 mg daily * TSH pending * Trending troponins, CK-MB * Placed on telemetry * 2D echo pending * CBC, BMP ordered for a.m. 02/15/17 Patient now clinically appears to be back in irregular rhythm. He did have mild elevation of his troponins. A repeat EKG is pending. (2) Pneumonia Status: Acute Plan: Patient found to have pneumonia on chest x-ray. White blood cell count is elevated at 12.8. Patient is afebrile. Pulse elevated but due to atrial fibrillation. Status post bolus in the ED. believed to be community-acquired. * Ceftriaxone 1 g every 12 hours * Azithromycin 500 mg by mouth daily * Duo nebs for shortness of breath * Robitussin for cough * Zofran for nausea or vomiting * IV fluids at 75 MLS per hour * Lactic acid pending * Monitor for worsening signs of sepsis 02/15/17 Clinical findings are stable. We'll continue current therapy. (3) Slow rate of speech Status: Acute Plan: Family is reporting slow rate of speech which is a new onset. CT head does not show any signs of stroke, does show chronic appearing white matter disease. No other neurological signs for CVA at this time. * MRI brain pending * Neuro checks every 4 * Continue to monitor at this time (4) YG (acute kidney injury) Status: Acute Plan: Patient has acute kidney injury with creatinine of 2.08 and BUN of 75. Patient's baseline is 1.3 and 20s to 30s respectively. * IV fluids as above * Monitor at this time * Avoiding nephro toxic medications (5) Hypertension Status: Chronic Plan: Long-standing history of hypertension * Holding his lisinopril at this time due to acute kidney injury, can restart with improvement in creatinine and BUN * Clonidine per hypertensive protocol (6) Nutrition, metabolism, and development symptoms Status: Acute Plan: Diet: Heart healthy diet Monitor electrolytes was accordingly Fluids: IV NS at 75 MLS per hour Vitals every 4 Bed rest with bathroom privileges DVT prophylaxis with SCDs, on therapeutic Lovenox with bridge to warfarin for A. fib CODE STATUS: Full code Disposition: Pending warfarin bridge or transition to other appropriate anticoagulation. Improvement of community-acquired pneumonia Problem Qualifiers (1) Hypertension: Qualified Code: I10 - Essential hypertension Ryan Bustillos MD February 15, 2017 10:20
--- NOTE | 2017-02-15 10:46 | PD.CONS ---
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 He has been having complaints of fatigue and slight confusion over the last several days. He was scheduled to see his PCP for routine follow up and was found to be in rapid atrial fibrillation. He was brought to the ED for further evaluation and management. He has a history of hypertension, hyperlipidemia and peripheral arterial disease. He denies any chest pain, palpitations or edema. He has some shortness of breath with exertion, productive cough with thick white sputum. CXR shows right bronchopneumonia verses aspiration. EKG with atrial fibrillation with rapid ventricular response, rate 120, LAFB. CT head was negative for any acute findings. His MRI is pending. Echocardiogram is pending. Initial BUN 75, creatinine 2.08, improved with hydration BUN 69, creatinine 1.68. Troponin 0.32, 0.25, 0.30. He is currently resting in bed without distress. Denies any needs. Review of Systems Consitutional: COMPLAINS OF: Fatigue, DENIES: Fever, Chills, Weight gain, Weight loss Eyes: DENIES: Amaurosis Fugax, Change in vision HEENT: DENIES: Lightheadedness, Change in hearing Respiratory: COMPLAINS OF: See HPI, Cough, Shortness of breath Cardiovascular: DENIES: Chest pain, Palpitations, Syncope, Tachycardia Gastrointestinal: DENIES: Nausea, Vomiting, Change in bowel habits, Reflux, Bloody stools, Melena Genitourinary: DENIES: Urinary incontinence, Difficulty voiding Integumentary: DENIES: Rash Neurologic: COMPLAINS OF: Tingling or numbness, Memory problems (confusion), Poor Balance, Stroke symptoms Musculoskeletal: DENIES: Joint pain, Muscle pain, Limited range of motion, Back pain Psychiatric: DENIES: Anxiety, Depression, Sleep disturbances Hematologic: DENIES: Bruising tendencies, Bleeding tendencies Endocrine: DENIES: Weight gain, Weight loss, Thyroid disease Past Family Social History Allergies: Coded Allergies: No Known Allergies (Verified , 11/03/13) Past Medical History Hypertension, Hyperlipidemia, PAD Reported Medications Reported Meds & Active Scripts Active Reported Anoro Ellipta Inh (Umeclidinium/Vilanterol) 62.5-25 Mcg/Act Aero 1 Puff INH DAILY Viagra (Sildenafil Citrate) 50 Mg Tab 50 Mg PO DAILY PRN Plavix (Clopidogrel Bisulfate) 75 Mg Tab 75 Mg PO DAILY Crestor (Rosuvastatin Calcium) 10 Mg Tab 10 Mg PO DAILY Lisinopril 40 Mg Tab 40 Mg PO DAILY Active Ordered Medications Current Medications Medications (Trade) Dose Ordered Sig/Debbie Route Start Time Stop Time Status Last Admin (NS Flush) 2 ml UNSCH PRN .XX 02/14/17 19:00 (NS Flush) 2 ml BID .XX 02/14/17 21:00 02/15/17 09:00 Heparin Sodium (Porcine) 5000 units 5,000 units Q8H SQ 02/14/17 19:00 Hold (Cardizem Inj/NS Inj) 125 ml @ 0 mls/hr TITRATE IV 02/14/17 19:00 Metoprolol Tartrate 25 mg 25 mg Q12HR PO 02/14/17 21:00 02/15/17 10:13 Sodium Chloride 1,000 ml @ 75 mls/hr [id number] IV 02/14/17 19:00 02/15/17 08:20 (Rocephin Inj/NS Inj) 100 ml @ 200 mls/hr Q24H IV 02/15/17 18:00 (Zithromax) 500 mg DAILY PO 02/15/17 09:00 02/15/17 10:14 (Zofran Inj) 4 mg Q6H PRN IV 02/14/17 19:00 (Robitussin Dm 200-20 Mg/10 ml Liq) 10 ml Q4H PRN PO 02/14/17 19:00 (Coumadin) 5 mg DAILY@1600 PO 02/14/17 19:15 02/14/17 21:50 (Lovenox Inj) 50 mg Q24H SQ 02/14/17 20:00 02/14/17 21:50 (Lipitor) 20 mg DAILY PO 02/15/17 09:00 02/15/17 10:13 (Catapres) 0.1 mg Q6H PRN PO 02/14/17 20:15 Social 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 Physical Exam Vital Signs Vital Signs Date Time Temp Pulse Resp B/P Pulse Ox O2 Delivery O2 Flow Rate FiO2 02/15/17 06:00 87 02/15/17 05:00 82 02/15/17 04:00 77 02/15/17 03:00 97.9 85 18 113/63 100 02/15/17 03:00 73 02/15/17 02:00 85 02/15/17 01:00 84 02/15/17 00:00 72 02/14/17 23:00 97.7 74 18 112/69 97 02/14/17 23:00 73 02/14/17 22:00 92 02/14/17 21:19 91 18 123/95 96 02/14/17 21:00 100 02/14/17 19:04 82 18 152/107 97 Room Air 02/14/17 17:33 116 18 164/102 98 Room Air 02/14/17 16:54 114 20 96 Room Air 02/14/17 16:53 20 96 Room Air 02/14/17 16:44 98.5 119 20 130/87 96 Physical Exam GENERAL: SKIN: Warm and dry. HEAD: Atraumatic. Normocephalic. EYES: Pupils equal and round. No scleral icterus. No injection or drainage. ENT: No nasal bleeding or discharge. Mucous membranes pink and moist. NECK: Trachea midline. No JVD. CARDIOVASCULAR: Irregularly irregular rhythm. No murmurs, rubs or gallops. No edema. RESPIRATORY: No accessory muscle use. Diminished RLL. Even and unlabored. GASTROINTESTINAL: Abdomen soft, non-tender, nondistended. MUSCULOSKELETAL: Extremities without clubbing, cyanosis, or edema. No obvious deformities. NEUROLOGICAL: Awake and alert. No obvious cranial nerve deficits. Motor grossly within normal limits. Five out of 5 muscle strength in the arms and legs. Speech is slow. PSYCHIATRIC: Appropriate mood and affect; insight and judgment normal. Laboratory Laboratory Tests Test 02/14/17 02/14/17 02/15/17 17:00 23:27 05:05 White Blood Count 12.8 8.8 Red Blood Count 4.98 4.98 Hemoglobin 11.8 11.8 Hematocrit 36.3 36.5 Mean Corpuscular Volume 72.8 73.4 Mean Corpuscular Hemoglobin 23.7 23.7 Mean Corpuscular Hemoglobin 32.6 32.2 Concent Red Cell Distribution Width 15.2 15.3 Platelet Count 276 250 Mean Platelet Volume 8.3 8.7 Neutrophils (%) (Auto) 81.3 Lymphocytes (%) (Auto) 10.3 Monocytes (%) (Auto) 7.6 Eosinophils (%) (Auto) 0.4 Basophils (%) (Auto) 0.4 Neutrophils # (Auto) 10.4 Lymphocytes # (Auto) 1.3 Monocytes # (Auto) 1.0 Eosinophils # (Auto) 0.0 Basophils # (Auto) 0.1 CBC Comment AUTO DIFF Differential Comment AUTO DIFF CONFIRMED Toxic Vacuolation PRESENT Platelet Estimate Prothrombin Time 11.9 12.2 Prothromb Time International 1.1 1.1 Ratio Activated Partial 27.3 Thromboplast Time Sodium Level 138 139 Potassium Level 4.0 3.5 Chloride Level 98 102 Carbon Dioxide Level 29.2 27.5 Anion Gap 11 10 Blood Urea Nitrogen 75 69 Creatinine 2.08 1.68 Estimat Glomerular Filtration 37 48 Rate Random Glucose 92 87 Calcium Level 8.9 8.7 Total Creatine Kinase 553 499 458 Creatine Kinase MB 4.0 4.7 3.7 Creatine Kinase MB % 0.7 0.9 0.8 Troponin I 0.32 0.30 0.25 Lactic Acid Level 2.1 Thyroid Stimulating Hormone 0.268 3rd Gen Date/Time Procedure Status Source Growth 02/14/17 18:25 Aerobic Blood Culture Received Blood Peripheral Pending 02/14/17 18:25 Anaerobic Blood Culture Received Blood Peripheral Pending Result Diagram: 02/15/17 0505 02/15/17 0505 Imaging Last [address] 02/14/17 1646 Signed Impressions: Service Date/Time: Tuesday, February 14, 2017 17:14 - CONCLUSION: No acute intracranial findings. Chronic appearing white matter disease Ye Nuñez MD Chest X-Ray 02/14/17 1646 Signed Impressions: Service Date/Time: Tuesday, February 14, 2017 17:02 - CONCLUSION: 1. Mild basilar airspace disease, right greater than left. Differential diagnosis includes bronchopneumonia and aspiration. Percy Pires MD Brain MRI 02/14/17 0000 Signed Impressions: Service Date/Time: Tuesday, February 14, 2017 20:01 - CONCLUSION: 1. No acute intracranial abnormality. 2. Extensive chronic small vessel ischemic change. Catarino Mittal Jr., MD Assessment and Plan Problem List: (1) Atrial fibrillation with RVR (2) Pneumonia (3) YG (acute kidney injury) (4) Slow rate of speech (5) Hypertension Assessment and Plan Now in SR, rate 90's. Elevated Troponin likely due to demand ischemia and acute kidney injury. Continue beta maynor. He is anticoagulated with lovenox , coumadin. Lisinopril on hold due to acute renal insufficiency. Will monitor. Continue clonidine PRN for hypertension. Will check echo. Code Status Full Discussed Condition With Dr. Garces and RN Problem Qualifiers (1) Hypertension: Qualified Code: I10 - Essential hypertension Erin Valentin [facility] February 15, 2017 10:46
--- NOTE | 2017-02-15 13:46 | EC ---
Study Study Date:02/15/2017 STUDY CONCLUSIONS SUMMARY - Left ventricle: The cavity size was normal. Wall thickness was increased in a pattern of mild LVH. Systolic function was mildly reduced. The estimated ejection fraction was in the range of 45% to 50%. Regional wall motion abnormalities cannot be excluded. Doppler parameters are consistent with abnormal left ventricular relaxation (grade 1 diastolic dysfunction). - Mitral valve: Mild regurgitation. If LV function is below 40, please consider prescribing an ACEI or ARB or document rationale for non-use. PROCEDURE DATA STUDY STATUS: Elective. Procedure: Transthoracic echocardiography. Image quality was fair. Scanning was performed from the parasternal, apical, and subcostal acoustic windows. Study completion: The patient tolerated the procedure well. Transthoracic echocardiography. M-mode, complete 2D, complete spectral Doppler, and color Doppler. Patient status: Inpatient. CARDIAC ANATOMY LEFT VENTRICLE: The cavity size was normal. Wall thickness was increased in a pattern of mild LVH. Systolic function was mildly reduced. The estimated ejection fraction was in the range of 45% to 50%. Regional wall motion abnormalities cannot be excluded. Doppler parameters are consistent with abnormal left ventricular relaxation (grade 1 diastolic dysfunction). AORTIC VALVE: Not well visualized. Mildly thickened, mildly calcified leaflets. Doppler: Transvalvular velocity was within the normal range. There was no stenosis. No regurgitation. AORTA: Aortic root: The aortic root was normal in size. MITRAL VALVE: Mildly thickened leaflets, . Doppler: Transvalvular velocity was within the normal range. There was no evidence for stenosis. Mild regurgitation. LEFT ATRIUM: The atrium was normal in size. RIGHT VENTRICLE: The cavity size was normal. Wall thickness was normal. PULMONIC VALVE: Doppler: Transvalvular velocity was within the normal range. There was no evidence for stenosis. No regurgitation. TRICUSPID VALVE: Structurally normal valve. Doppler: Transvalvular velocity was within the normal range. Trace to mild regurgitation. PULMONARY ARTERY: The main pulmonary artery was normal-sized. RIGHT ATRIUM: The atrium was normal in size. PERICARDIUM: There was no pericardial effusion. SYSTEMIC VEINS: Inferior vena cava: The vessel was normal in size. BASIC MEASUREMENTS ADULT Normal Left ventricle LV internal dimension, ED, chordal level, *31.8 mm 43-52 PLAX LV internal dimension, ES, chordal level, 25.9 mm 23-38 PLAX Fractional shortening, chordal level, PLAX *19 % >29 LV posterior wall thickness, ED 9.49 mm IVS/LVPW ratio, ED *1.4 <1.3 Ventricular septum Septal thickness, ED 13.3 mm Aortic valve Leaflet separation 16 mm 15-26 Left atrium Anterior-posterior dimension 33 mm Right ventricle RV internal dimension, ED, PLAX 21 mm 19-38 BASIC MEASUREMENTS ADULT Normal Aortic valve Leaflet separation 16 mm 15-26 Aorta Root diameter, ED 28 mm 20-37 DOPPLER MEASUREMENTS ADULT Normal Mitral valve Peak E-wave velocity 63.7 cm/s Peak A-wave velocity 25.7 cm/s Peak E/A ratio 2.5 Maximal regurgitant velocity 527 cm/s Tricuspid valve Regurgitant peak velocity 195 cm/s Peak RV-RA gradient, S 15 mm Hg Maximal regurgitant velocity 195 cm/s Systemic veins Estimated CVP 10 mm Hg LEGEND: Mean values are shown as u=mean value. Asterisk (*) hamilton values outside specified normal range. Prepared and signed by Garland Haley [id number]
--- NOTE | 2017-02-15 15:50 | EKG ---
Date Performed: 02/14/2017 Time Performed: 17:00:10 PTAGE: 81 years EKG: ATRIAL FIBRILLATION WITH RAPID VENTRICULAR RESPONSE WITH ABERRANT CONDUCTION OR VENTRICULAR PREMATURE COMPLEXES LEFT ANTERIOR FASCICULAR BLOCK ABNORMAL ECG Since PREVIOUS TRACING 07/01/2013, atrial fibrillation is new. Clinical correlation is recomme nded. PREVIOUS TRACIN07/01/2013 06.37 DOCTOR: Ez Cardona Interpretating Date/Time 02/15/2017 15:48:58
[2017-02-15] MEDS: cefTRIAXone INJ 1,000 MG in SODIUM CHLORIDE 0.9% INJ 100 ML IV SCH (18:23)
[2017-02-15] MEDS: WARFARIN SOD 5 MG TAB PO SCH (18:23)
[2017-02-15] MEDS: ENOXAPARIN SODIUM 60 MG/0.6 ML SYRINGE SQ SCH (21:18)
[2017-02-16] VITALS (25 sets, daily range): BP systolic 106–138; BP diastolic 62–85; PULSE 62–100; RESP 16–18; TEMP 97.9–98.8; O2SAT 96–98
[2017-02-16] MEDS: METOPROLOL TARTRATE 25 MG TAB PO SCH ×4 (01:00→17:31)
[2017-02-16 04:23] LABS: HEMATOCRIT 38.1 % (39.0-51.0); MEAN CELL VOLUME 72.5 FL (80.0-100.0); MEAN CORPUSCULAR HEMOGLOBIN 24.1 PG (27.0-34.0); MEAN CORPUSCULAR HGB CONC 33.3 % (32.0-36.0); PLATELET COUNT 290 TH/MM3 (150-450); RED BLOOD COUNT 5.25 MIL/MM3 (4.50-5.90); REVIEW FLAG FINAL; WHITE BLOOD COUNT 7.1 TH/MM3 (4.0-11.0)
[2017-02-16 04:51] LABS: ANION GAP 9 MEQ/L (5-15); BICARBONATE 29.8 MEQ/L (21.0-32.0); BLOOD UREA NITROGEN 48 MG/DL (7-18); CHLORIDE 100 MEQ/L (98-107); CREATINE KINASE 246 U/L (39-308); GLOMERULAR FILTRATION RATE 71 ML/MIN (>89); POTASSIUM 3.4 MEQ/L (3.5-5.1); SODIUM (NA) 139 MEQ/L (136-145)
[2017-02-16 05:24] LABS: CKMB 2.4 NG/ML (0.5-3.6)
[2017-02-16] MEDS ORDERED: POTASSIUM CHLORIDE 10 MEQ CONTROLLED RELEASE TAB PO ONE (07:30)
[2017-02-16] MEDS: SODIUM CHLORIDE 0.9% FLUSH 10 ML FLUSH SCH ×2 (08:48→21:00)
[2017-02-16] MEDS: ATORVASTATIN 20 MG TAB PO SCH (08:48)
[2017-02-16] MEDS: UMECLIDINIUM 62.5 MCG/VILANTEROL 25 MCG INHALER INH SCH (08:48)
[2017-02-16] MEDS: AZITHROMYCIN 250 MG TAB PO SCH (08:48)
[2017-02-16] MEDS: guaiFENesin/DEXTROMETHORPHAN 200 MG/20 MG/10 ML CUP PO PRN (08:51)
--- NOTE | 2017-02-16 09:30 | PD.CARD.PN ---
Subjective Subjective Remarks Sitting up in the chair. Feeling better. Denies any chest pain or needs. Objective Medications Current Medications Medications (Trade) Dose Ordered Sig/Debbie Route Start Time Stop Time Status Last Admin (NS Flush) 2 ml UNSCH PRN .XX 02/14/17 19:00 (NS Flush) 2 ml BID .XX 02/14/17 21:00 02/16/17 08:48 Heparin Sodium (Porcine) 5000 units 5,000 units Q8H SQ 02/14/17 19:00 Hold Diltiazem HCl 125 mg/Sodium Chloride 125 ml @ 0 mls/hr TITRATE IV 02/14/17 19:00 Sodium Chloride 1,000 ml @ 75 mls/hr [id number] IV 02/14/17 19:00 02/15/17 08:20 (Rocephin Inj/NS Inj) 100 ml @ 200 mls/hr Q24H IV 02/15/17 18:00 02/15/17 18:23 (Zithromax) 500 mg DAILY PO 02/15/17 09:00 02/16/17 08:48 (Zofran Inj) 4 mg Q6H PRN IV 02/14/17 19:00 (Robitussin Dm 200-20 Mg/10 ml Liq) 10 ml Q4H PRN PO 02/14/17 19:00 02/16/17 08:51 (Coumadin) 5 mg DAILY@1600 PO 02/14/17 19:15 02/15/17 18:23 (Lovenox Inj) 50 mg Q24H SQ 02/14/17 20:00 02/15/17 21:18 (Lipitor) 20 mg DAILY PO 02/15/17 09:00 02/16/17 08:48 (Catapres) 0.1 mg Q6H PRN PO 02/14/17 20:15 (Lopressor) 25 mg Q6HR PO 02/15/17 12:00 02/16/17 04:46 Vital Signs / I&O Vital Signs Date Time Temp Pulse Resp B/P Pulse Ox O2 Delivery O2 Flow Rate FiO2 02/16/17 06:00 88 02/16/17 05:00 95 02/16/17 04:00 98.0 96 18 116/70 98 02/16/17 04:00 94 02/16/17 03:00 95 02/16/17 02:00 96 02/16/17 01:00 96 02/16/17 00:00 97.9 92 18 138/85 98 02/16/17 00:00 93 02/15/17 23:00 93 02/15/17 22:00 94 02/15/17 21:00 94 02/15/17 20:00 99 02/15/17 20:00 98.0 96 18 107/68 98 02/15/17 19:00 97 02/15/17 18:00 97 02/15/17 17:00 96 02/15/17 16:00 98 02/15/17 15:31 96 21 02/15/17 15:00 97.9 97 18 151/64 98 02/15/17 15:00 97 02/15/17 14:00 96 02/15/17 13:00 97 02/15/17 12:00 94 02/15/17 11:00 97.8 95 16 107/67 100 02/15/17 11:00 95 I/O 02/15/17 02/15/17 02/15/17 02/16/17 02/16/17 02/16/17 07:00 15:00 23:00 07:00 15:00 23:00 Intake Total 720 ml 750 ml 360 ml Output Total 200 ml 700 ml Balance 520 ml 50 ml 360 ml Intake Oral 720 ml 750 ml 360 ml Output Urine Total 200 ml 700 ml # Voids 3 # Bowel Movements 1 2 Physical Exam GENERAL: Awake,alert. No distress. SKIN: Warm and dry. HEAD: Atraumatic. Normocephalic. EYES: Pupils equal and round. No scleral icterus. No injection or drainage. ENT: No nasal bleeding or discharge. Mucous membranes pink and moist. NECK: Trachea midline. No JVD. CARDIOVASCULAR: Regular rate and rhythm. No murmurs, rubs or gallops. RESPIRATORY: No accessory muscle use. Clear to auscultation, diminished throughout. GASTROINTESTINAL: Abdomen soft, non-tender, nondistended. . MUSCULOSKELETAL: Extremities without clubbing, cyanosis, or edema. No obvious deformities. NEUROLOGICAL: Awake and alert. No obvious cranial nerve deficits. Motor grossly within normal limits. Five out of 5 muscle strength in the arms and legs. Speech is slow. PSYCHIATRIC: Appropriate mood and affect; insight and judgment normal. Laboratory Laboratory Tests Test 5/28/17 04:09 White Blood Count 7.1 TH/MM3 Red Blood Count 5.25 MIL/MM3 Hemoglobin 12.7 GM/DL Hematocrit 38.1 % Mean Corpuscular Volume 72.5 FL Mean Corpuscular Hemoglobin 24.1 PG Mean Corpuscular Hemoglobin 33.3 % Concent Red Cell Distribution Width 15.0 % Platelet Count 290 TH/MM3 Mean Platelet Volume 8.1 FL Sodium Level 139 MEQ/L Potassium Level 3.4 MEQ/L Chloride Level 100 MEQ/L Carbon Dioxide Level 29.8 MEQ/L Anion Gap 9 MEQ/L Blood Urea Nitrogen 48 MG/DL Creatinine 1.18 MG/DL Estimat Glomerular Filtration 71 ML/MIN Rate Random Glucose 90 MG/DL Calcium Level 8.5 MG/DL Total Creatine Kinase 246 U/L Creatine Kinase MB 2.4 NG/ML Imaging Last [address] 02/14/17 1646 Signed Impressions: Service Date/Time: Tuesday, February 14, 2017 17:14 - CONCLUSION: No acute intracranial findings. Chronic appearing white matter disease Ye Nuñez MD Chest X-Ray 02/14/171645 Signed Impressions: Service Date/Time: Tuesday, February 14, 2017 17:02 - CONCLUSION: 1. Mild basilar airspace disease, right greater than left. Differential diagnosis includes bronchopneumonia and aspiration. Percy Pires MD Assessment and Plan Problem List: (1) Atrial fibrillation with RVR (2) Pneumonia (3) YG (acute kidney injury) (4) Slow rate of speech (5) Hypertension Assessment and Plan Continues in SR, rate 90's. Will increase beta maynor for better rate control. Elevated Troponin likely due to demand ischemia and acute kidney injury. He is anticoagulated with lovenox, coumadin. Lisinopril on hold due to acute renal insufficiency - improved. Continue clonidine PRN for hypertension. Echo with EF 45-50%, LVH, mild mitral regurgitation. Code Status Full Discussed Condition With Dr. Garces and RN Problem Qualifiers (1) Hypertension: Qualified Code: I10 - Essential hypertension Erin Valentin CM February 16, 2017 09:30
[2017-02-16] MEDS: SODIUM CHLOR 0.9% 1000 ML INJ 1,000 ML IV SCH (11:00)
--- NOTE | 2017-02-16 11:15 | HHI.FPPN ---
Subjective Remarks Patient seen and examined this morning. Afebrile, heart rate between 88-99, rest rate 16, blood pressure 106/70, pulse ox 96 on room air. Patient reports that he is feeling better today. Says he still has a mild cough. Does not feel like his heart is racing. He understands that he will [facility] while he is being treated for pneumonia and bridged to warfarin. Endorses: Cough, mild shortness of breath Denies: Fever, chills, nausea, vomiting, chest pain, headache, abdominal pain, calf pain (Philip Harper MD R2) Objective Vitals Vital Signs Date Time Temp Pulse Resp B/P Pulse Ox O2 Delivery O2 Flow Rate FiO2 02/16/17 10:28 96 02/16/17 08:00 94 02/16/17 08:00 98.4 99 16 106/70 96 02/16/17 06:00 88 02/16/17 05:00 95 02/16/17 04:00 98.0 96 18 116/70 98 02/16/17 04:00 94 02/16/17 03:00 95 02/16/17 02:00 96 02/16/17 01:00 96 02/16/17 00:00 97.9 92 18 138/85 98 02/16/17 00:00 93 02/15/17 23:00 93 02/15/17 22:00 94 02/15/17 21:00 94 02/15/17 20:00 99 02/15/17 20:00 98.0 96 18 107/68 98 02/15/17 19:00 97 02/15/17 18:00 97 02/15/17 17:00 96 02/15/17 16:00 98 02/15/17 15:31 96 21 02/15/17 15:00 97.9 97 18 151/64 98 02/15/17 15:00 97 02/15/17 14:00 96 02/15/17 13:00 97 02/15/17 12:00 94 I/O 02/15/17 02/15/17 02/15/17 02/16/17 02/16/17 02/16/17 07:00 15:00 23:00 07:00 15:00 23:00 Intake Total 720 ml 750 ml 360 ml Output Total 200 ml 700 ml Balance 520 ml 50 ml 360 ml Intake Oral 720 ml 750 ml 360 ml Output Urine Total 200 ml 700 ml # Voids 3 # Bowel Movements 1 2 (Philip Harper MD R2) Result Diagram: 02/16/1740802/16/17408 Imaging Last Impressions Head CT 02/14/176 Signed Impressions: Service Date/Time: Tuesday, February 14, 2017 17:14 - CONCLUSION: No acute intracranial findings. Chronic appearing white matter disease Ye Nuñez MD Chest X-Ray 02/14/176 Signed Impressions: Service Date/Time: Tuesday, February 14, 2017 17:02 - CONCLUSION: 1. Mild basilar airspace disease, right greater than left. Differential diagnosis includes bronchopneumonia and aspiration. Percy Pires MD Brain MRI 02/14/17 0000 Signed Impressions: Service Date/Time: Tuesday, February 14, 2017 20:01 - CONCLUSION: 1. No acute intracranial abnormality. 2. Extensive chronic small vessel ischemic change. Catarino Mittal Jr., MD Objective Remarks O. CONSTITUTIONAL/GEN: normally nourished, in NAD. EYES: conjunctiva normal, PERRLA, EOMI. ENT: Mouth and pharynx normal. NECK: thyroid midline, carotids symmetrical. LUNGS: relatively clear with scattered rhonchi, respiratory effort is normal. CARDIOVASCULAR: RR without murmur or gallop. No significant edema. GI/ABD: soft without masses, without organomegaly. NEURO: No focal deficits. SKIN: color normal, no rashes noted. HEME/LYMPH: no bruising, petechia or significant adenopathy MUSC: back is normal in appearance. Extremities are normal in appearance. PSYCH/MENTAL STATUS: Awake and alert. Will answer questions appropriately. Medications and IVs Current Medications Medications (Trade) Dose Ordered Sig/Debbie Route Start Time Stop Time Status Last Admin (NS Flush) 2 ml UNSCH PRN .XX 02/14/17 19:00 (NS Flush) 2 ml BID .XX 02/14/17 21:00 02/16/17 08:48 Heparin Sodium (Porcine) 5000 units 5,000 units Q8H SQ 02/14/17 19:00 Hold Diltiazem HCl 125 mg/Sodium Chloride 125 ml @ 0 mls/hr TITRATE IV 02/14/17 19:00 Sodium Chloride 1,000 ml @ 75 mls/hr [id number] IV 02/14/17 19:00 02/16/17 11:00 (Rocephin Inj/NS Inj) 100 ml @ 200 mls/hr Q24H IV 02/15/17 18:00 02/15/17 18:23 (Zithromax) 500 mg DAILY PO 02/15/17 09:00 02/16/17 08:48 (Zofran Inj) 4 mg Q6H PRN IV 02/14/17 19:00 (Robitussin Dm 200-20 Mg/10 ml Liq) 10 ml Q4H PRN PO 02/14/17 19:00 02/16/17 08:51 (Coumadin) 5 mg DAILY@1600 PO 02/14/17 19:15 02/15/17 18:23 (Lovenox Inj) 50 mg Q24H SQ 02/14/17 20:00 02/15/17 21:18 (Lipitor) 20 mg DAILY PO 02/15/17 09:00 02/16/17 08:48 (Catapres) 0.1 mg Q6H PRN PO 02/14/17 20:15 (Lopressor) 50 mg Q6HR PO 02/16/17 12:00 (Philip Harper MD R2) A/P Assessment and Plan This is an 81-year-old -Turkish male with past medical history significant for hypertension and peripheral artery disease (on Plavix). Being admitted for new onset atrial fibrillation and right-sided bronchopneumonia wdw: Dr. Bustillos Discharge Planning Pending resolution of pneumonia and warfarin bridge (Philip Harper MD R2) Attending Attestation Case reviewed and discussed with the resident team. Agree with plan of care as discussed with me and documented in the resident note. (Ryan Bustillos MD) Problem List: (1) Atrial fibrillation with RVR Status: Acute Plan: New-onset atrial fibrillation. Tachycardic on admission. Irregularly irregular rate. Status post diltiazem 2 in the ED. Patient is currently on Plavix for peripheral artery disease. Per active trials Plavix is not an appropriate medication for atrial fibrillation, therefore will bridge to warfarin at this time. 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 * Admitted to inpatient * Consult cardiology recommendations appreciated * Metoprolol 25 mg twice a day * Therapeutic Lovenox at 1 mg/kg every 24 hours (renal dosing) * Warfarin 5 mg daily * Placed on telemetry * 2D echo EF 45-50 * CBC, BMP, PT/INR ordered for a.m. (2) Pneumonia Status: Acute Plan: Patient found to have pneumonia on chest x-ray. * Ceftriaxone 1 g every 12 hours * Azithromycin 500 mg by mouth daily * Duo nebs for shortness of breath * Robitussin for cough * Zofran for nausea or vomiting * Monitor for worsening signs of sepsis (3) Slow rate of speech Status: Acute Plan: Family is reporting slow rate of speech which is a new onset. CT head does not show any signs of stroke, does show chronic appearing white matter disease. No other neurological signs for CVA at this time. * MRI brain pending * Neuro checks every 4 * Continue to monitor at this time (4) YG (acute kidney injury) Status: Resolved Plan: Patient has acute kidney injury with creatinine of 2.08 and BUN of 75. Patient's baseline is 1.3 and 20s to 30s respectively. * IV fluids as above * Monitor at this time * Avoiding nephro toxic medications (5) Hypertension Status: Chronic Plan: Long-standing history of hypertension * Holding his lisinopril at this time due to acute kidney injury, can restart with improvement in creatinine and BUN * Clonidine per hypertensive protocol (6) Nutrition, metabolism, and development symptoms Status: Acute Plan: Diet: Heart healthy diet Monitor electrolytes was accordingly Fluids: Adequate oral intake Vitals every 4 Bed rest with bathroom privileges DVT prophylaxis with SCDs, on therapeutic Lovenox with bridge to warfarin for A. fib CODE STATUS: Full code Disposition: Pending warfarin bridge or transition to other appropriate anticoagulation. Improvement of community-acquired pneumonia (Philip Harper MD R2) Problem Qualifiers (1) Hypertension: Qualified Code: I10 - Essential hypertension Philip Harper MD R2 February 16, 2017 11:15 Ryan Bustillos MD February 17, 2017 12:27
[2017-02-16 11:30] LABS: INTERNATIONAL NORMALIZED RATIO 1.3 RATIO; PROTHROMBIN TIME - PATIENT 14.5 SEC (9.8-11.6)
--- NOTE | 2017-02-16 14:58 | EKG ---
Date Performed: 02/15/2017 Time Performed: 11:28:28 PTAGE: 81 years EKG: Atrial flutter with 2:1 AV conduction Interventricular conduction disturbance Left axis dev iation Compared to previous tracing, rhythm has changed from atrial fibrillation to atrial flutter. A bnormal ECG PREVIOUS TRACING : 02/14/2017 17.00 DOCTOR: Ez Cardona Interpretating Date/Time 02/16/2017 14:56:52
[2017-02-16] MEDS: WARFARIN SOD 5 MG TAB PO SCH (16:05)
[2017-02-16] MEDS: cefTRIAXone INJ 1,000 MG in SODIUM CHLORIDE 0.9% INJ 100 ML IV SCH (17:31)
[2017-02-16] MEDS: ENOXAPARIN SODIUM 60 MG/0.6 ML SYRINGE SQ SCH (20:00)
[2017-02-17] VITALS (27 sets, daily range): BP systolic 103–139; BP diastolic 55–83; PULSE 64–102; RESP 16–18; TEMP 97.3–97.7; O2SAT 93–99
[2017-02-17] MEDS: guaiFENesin/DEXTROMETHORPHAN 200 MG/20 MG/10 ML CUP PO PRN (00:44)
[2017-02-17] MEDS: METOPROLOL TARTRATE 25 MG TAB PO SCH ×4 (06:00→21:24)
[2017-02-17 08:29] LABS: HEMATOCRIT 37.8 % (39.0-51.0); MEAN CELL VOLUME 72.5 FL (80.0-100.0); MEAN CORPUSCULAR HEMOGLOBIN 23.5 PG (27.0-34.0); MEAN CORPUSCULAR HGB CONC 32.4 % (32.0-36.0); PLATELET COUNT 333 TH/MM3 (150-450); RED BLOOD COUNT 5.22 MIL/MM3 (4.50-5.90); RED CELL DISTRIBUTION WIDTH 15.3 % (11.6-17.2); REVIEW FLAG FINAL; WHITE BLOOD COUNT 6.5 TH/MM3 (4.0-11.0)
[2017-02-17 08:38] LABS: INTERNATIONAL NORMALIZED RATIO 1.9 RATIO; PROTHROMBIN TIME - PATIENT 21.9 SEC (9.8-11.6)
[2017-02-17] MEDS: ATORVASTATIN 20 MG TAB PO SCH (08:53)
[2017-02-17] MEDS: AZITHROMYCIN 250 MG TAB PO SCH (08:53)
[2017-02-17] MEDS: SODIUM CHLORIDE 0.9% FLUSH 10 ML FLUSH SCH ×2 (08:55→21:24)
[2017-02-17 08:59] LABS: BICARBONATE 30.1 MEQ/L (21.0-32.0); POTASSIUM 3.2 MEQ/L (3.5-5.1)
[2017-02-17] MEDS: UMECLIDINIUM 62.5 MCG/VILANTEROL 25 MCG INHALER INH SCH (08:59)
--- NOTE | 2017-02-17 09:02 | HHI.FPPN ---
Subjective Remarks Patient is doing well this morning, states that he is on the way to recovery. He would like to go home today. He still has some cough, chest pain, and runny nose every now and then but denies shortness of breath or nausea. He ate almost all of his breakfast this morning. (Rebeka Cordoba MD R1) Objective Vitals Vital Signs Date Time Temp Pulse Resp B/P Pulse Ox O2 Delivery O2 Flow Rate FiO2 02/17/17 08:58 93 21 02/17/17 08:00 71 02/17/17 08:00 97.3 75 18 139/76 97 02/17/17 06:00 68 02/17/17 05:00 66 02/17/17 04:00 75 16 103/55 95 02/17/17 04:00 64 02/17/17 03:00 68 02/17/17 02:00 72 02/17/17 01:00 71 02/17/17 00:00 94 02/17/17 00:00 77 16 123/72 98 02/16/17 23:00 76 02/16/17 22:00 70 02/16/17 21:00 94 02/16/17 20:00 98.4 62 16 118/72 98 02/16/17 20:00 76 02/16/17 19:00 72 02/16/17 18:00 100 02/16/17 17:00 74 02/16/17 16:00 98.8 80 16 113/62 98 02/16/17 16:00 96 02/16/17 15:00 76 02/16/17 14:00 72 02/16/17 13:00 94 02/16/17 12:00 98.4 97 16 114/62 97 02/16/17 12:00 97 02/16/17 11:00 96 02/16/17 10:28 96 02/16/17 10:00 94 I/O 02/16/17 02/16/17 02/16/17 02/17/17 02/17/17 02/17/17 07:00 15:00 23:00 07:00 15:00 23:00 Intake Total 360 ml 760 ml 480 ml Balance 360 ml 760 ml 480 ml Intake Oral 360 ml 660 ml 480 ml IV Total 100 ml # Voids 3 4 3 # Bowel Movements 2 1 (Rebeka Cordoba MD R1) Result Diagram: 02/17/1781202/17/17812 Objective Remarks O. CONSTITUTIONAL/GEN: Thin, elderly gentleman in no NAD EYES: conjunctiva normal, PERRLA, EOMI. ENT: Mouth and pharynx normal. NECK: thyroid midline, carotids symmetrical. LUNGS: relatively clear with scattered rhonchi, respiratory effort is normal. CARDIOVASCULAR: RR without murmur or gallop. No significant edema. GI/ABD: soft without masses, without organomegaly. NEURO: No focal deficits. SKIN: color normal, no rashes noted. HEME/LYMPH: no bruising, petechia or significant adenopathy MUSC: back is normal in appearance. Extremities are normal in appearance. PSYCH/MENTAL STATUS: Awake and alert. Answers questions appropriately. Pleasant (Rebeka Cordoba MD R1) A/P Assessment and Plan This is an 81-year-old -[place] male with past medical history significant for hypertension and peripheral artery disease (on Plavix). He was admitted for new onset atrial fibrillation and right-sided bronchopneumonia wdw: Dr. Bustillos Discharge Planning Pending resolution of pneumonia and warfarin bridge to INR between 2-3 (Rebeka Cordoba MD R1) Attending Attestation Case reviewed and discussed with the resident team. Agree with plan of care as discussed with me and documented in the resident note. (Ryan Bustillos MD) Problem List: (1) Atrial fibrillation with RVR Status: Acute Plan: New-onset atrial fibrillation. Tachycardic on admission. Irregularly irregular rate. Status post diltiazem 2 in the ED. Patient is currently on Plavix for peripheral artery disease. Per active trials Plavix is not an appropriate medication for atrial fibrillation, therefore will bridge to warfarin at this time. 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 * Admitted to inpatient * Consult cardiology recommendations appreciated * Metoprolol 25 mg twice a day * Therapeutic Lovenox at 1 mg/kg every 24 hours (renal dosing) * Warfarin 5 mg daily with pharmacy consult to adjust medication dose as needed , INR 1.9 today 02/17 * Placed on telemetry * 2D echo EF 45-50 (2) Pneumonia Status: Acute Plan: Patient found to have pneumonia on chest x-ray. * Ceftriaxone 1 g every 12 hours * Azithromycin 500 mg by mouth daily * Duonebs for shortness of breath * Robitussin for cough * Zofran for nausea or vomiting * 1 anaerobic vial growing staph epidermidis, most likely a contaminant * Monitor for worsening signs of sepsis (3) Slow rate of speech Status: Acute Plan: Family is reporting slow rate of speech which is a new onset. CT head does not show any signs of stroke, does show chronic appearing white matter disease. No other neurological signs for CVA at this time. * MRI brain negative for acute intracranial abnormality but shows extensive chronic small vessel ischemic changes * Neuro checks every 4 * Continue to monitor at this time (4) YG (acute kidney injury) Status: Resolved Plan: Patient has acute kidney injury with creatinine of 2.08 and BUN of 75 on admission. Patient's baseline is 1.3 and 20s to 30s respectively. * Creatinine down to 1.27, BUN 38, GFR 66 on 02/17 * IV fluids as above * Monitor at this time * Avoiding nephro toxic medications (5) Hypertension Status: Chronic Plan: Long-standing history of hypertension * Holding his lisinopril at this time due to acute kidney injury, can restart with improvement in creatinine and BUN * Clonidine per hypertensive protocol (6) Nutrition, metabolism, and development symptoms Status: Acute Plan: Diet: Heart healthy diet Monitor electrolytes was accordingly Fluids: Adequate oral intake Vitals every 4 Bed rest with bathroom privileges DVT prophylaxis with SCDs, on therapeutic Lovenox with bridge to warfarin for A. fib CODE STATUS: Full code Disposition: Pending warfarin bridge or transition to other appropriate anticoagulation. Improvement of community-acquired pneumonia (Rebeka Cordoba MD R1) Problem Qualifiers (1) Hypertension: Qualified Code: I10 - Essential hypertension Rebeka Cordoba MD R1 February 17, 2017 09:02 Ryan Bustillos MD February 17, 2017 12:29
[2017-02-17] MEDS ORDERED: POTASSIUM CHLORIDE 10 MEQ CONTROLLED RELEASE TAB PO ONE (09:30)
--- NOTE | 2017-02-17 10:48 | PD.CARD.PN ---
Subjective Subjective Remarks Sitting up in the chair. Feeling better. Wants to go home. Objective Medications Current Medications Medications (Trade) Dose Ordered Sig/Debbie Route Start Time Stop Time Status Last Admin (NS Flush) 2 ml UNSCH PRN .XX 02/14/17 19:00 (NS Flush) 2 ml BID .XX 02/14/17 21:00 02/17/17 08:55 Heparin Sodium (Porcine) 5000 units 5,000 units Q8H SQ 02/14/17 19:00 Hold Diltiazem HCl 125 mg/Sodium Chloride 125 ml @ 0 mls/hr TITRATE IV 02/14/17 19:00 (Rocephin Inj/NS Inj) 100 ml @ 200 mls/hr Q24H IV 02/15/17 18:00 02/16/17 17:31 (Zithromax) 500 mg DAILY PO 02/15/17 09:00 02/17/17 08:53 (Zofran Inj) 4 mg Q6H PRN IV 02/14/17 19:00 (Robitussin Dm 200-20 Mg/10 ml Liq) 10 ml Q4H PRN PO 02/14/17 19:00 02/17/17 00:44 (Lovenox Inj) 50 mg Q24H SQ 02/14/17 20:00 02/16/17 20:00 (Lipitor) 20 mg DAILY PO 02/15/17 09:00 02/17/17 08:53 Clonidine 0.1 mg 0.1 mg Q6H PRN PO 02/14/17 20:15 (Coumadin Consult Pharmacy) 0 ml @ 0 mls/hr UNSCH OTHER 02/17/17 06:45 (Coumadin) 3 mg DAILY@16 PO 02/17/17 16:00 (Lopressor) 50 mg BID PO 02/17/17 10:00 02/17/17 10:15 Vital Signs / I&O Vital Signs Date Time Temp Pulse Resp B/P Pulse Ox O2 Delivery O2 Flow Rate FiO2 02/17/17 08:58 93 21 02/17/17 08:00 71 02/17/17 08:00 97.3 75 18 139/76 97 02/17/17 06:00 68 02/17/17 05:00 66 02/17/17 04:00 75 16 103/55 95 02/17/17 04:00 64 02/17/17 03:00 68 02/17/17 02:00 72 02/17/17 01:00 71 02/17/17 00:00 94 02/17/17 00:00 77 16 123/72 98 02/16/17 23:00 76 02/16/17 22:00 70 02/16/17 21:00 94 02/16/17 20:00 98.4 62 16 118/72 98 02/16/17 20:00 76 02/16/17 19:00 72 02/16/17 18:00 100 02/16/17 17:00 74 02/16/17 16:00 98.8 80 16 113/62 98 02/16/17 16:00 96 02/16/17 15:00 76 02/16/17 14:00 72 02/16/17 13:00 94 02/16/17 12:00 98.4 97 16 114/62 97 02/16/17 12:00 97 02/16/17 11:00 96 I/O 02/16/17 02/16/17 02/16/17 02/17/17 02/17/17 02/17/17 07:00 15:00 23:00 07:00 15:00 23:00 Intake Total 360 ml 760 ml 480 ml Balance 360 ml 760 ml 480 ml Intake Oral 360 ml 660 ml 480 ml IV Total 100 ml # Voids 3 4 3 # Bowel Movements 2 1 Physical Exam GENERAL: Awake,alert. No distress. SKIN: Warm and dry. HEAD: Atraumatic. Normocephalic. EYES: Pupils equal and round. No scleral icterus. No injection or drainage. ENT: No nasal bleeding or discharge. Mucous membranes pink and moist. NECK: Trachea midline. No JVD. CARDIOVASCULAR: Regular rate and rhythm. No murmurs, rubs or gallops. RESPIRATORY: No accessory muscle use. Clear to auscultation, diminished throughout. GASTROINTESTINAL: Abdomen soft, non-tender, nondistended. . MUSCULOSKELETAL: Extremities without clubbing, cyanosis, or edema. No obvious deformities. NEUROLOGICAL: Awake and alert. No obvious cranial nerve deficits. Motor grossly within normal limits.Speech is slow. PSYCHIATRIC: Appropriate mood and affect; insight and judgment normal. Laboratory Laboratory Tests Test 02/16/17 02/17/17 10:55 08:13 Prothrombin Time 14.5 SEC 21.9 SEC Prothromb Time International 1.3 RATIO 1.9 RATIO Ratio White Blood Count 6.5 TH/MM3 Red Blood Count 5.22 MIL/MM3 Hemoglobin 12.2 GM/DL Hematocrit 37.8 % Mean Corpuscular Volume 72.5 FL Mean Corpuscular Hemoglobin 23.5 PG Mean Corpuscular Hemoglobin 32.4 % Concent Red Cell Distribution Width 15.3 % Platelet Count 333 TH/MM3 Mean Platelet Volume 8.3 FL Sodium Level 139 MEQ/L Potassium Level 3.2 MEQ/L Chloride Level 100 MEQ/L Carbon Dioxide Level 30.1 MEQ/L Anion Gap 9 MEQ/L Blood Urea Nitrogen 38 MG/DL Creatinine 1.27 MG/DL Estimat Glomerular Filtration 66 ML/MIN Rate Random Glucose 103 MG/DL Calcium Level 8.5 MG/DL Assessment and Plan Problem List: (1) Atrial fibrillation with RVR (2) Pneumonia (3) YG (acute kidney injury) (4) Slow rate of speech (5) Hypertension Assessment and Plan Feeling better. Continues in SR, rate improved. BP stable. Elevated Troponin likely due to demand ischemia and acute kidney injury. He is anticoagulated with lovenox, coumadin. Lisinopril on hold due to acute renal insufficiency - improved. Continue clonidine PRN for hypertension. Echo with EF 45-50%, LVH, mild mitral regurgitation. Replace potassium. Dr. Koroma to follow tomorrow. Code Status full Discussed Condition With Dr. Garces and RN. Problem Qualifiers (1) Hypertension: Qualified Code: I10 - Essential hypertension Erin Valentin [facility] February 17, 2017 10:48
[2017-02-17] MEDS ORDERED: WARFARIN SOD 3 MG TAB PO SCH (16:00)
[2017-02-17] MEDS: cefTRIAXone INJ 1,000 MG in SODIUM CHLORIDE 0.9% INJ 100 ML IV SCH (17:36)
[2017-02-17] MEDS: ENOXAPARIN SODIUM 60 MG/0.6 ML SYRINGE SQ SCH (21:24)
[2017-02-18] VITALS (14 sets, daily range): BP systolic 121–147; BP diastolic 71–74; PULSE 60–100; RESP 16; TEMP 97.3–98; O2SAT 98–100
[2017-02-18 04:17] LABS: HEMATOCRIT 37.3 % (39.0-51.0); MEAN CELL VOLUME 73.5 FL (80.0-100.0); MEAN CORPUSCULAR HEMOGLOBIN 23.5 PG (27.0-34.0); PLATELET COUNT 316 TH/MM3 (150-450); RED BLOOD COUNT 5.07 MIL/MM3 (4.50-5.90); RED CELL DISTRIBUTION WIDTH 15.3 % (11.6-17.2); REVIEW FLAG FINAL; WHITE BLOOD COUNT 7.4 TH/MM3 (4.0-11.0)
[2017-02-18 04:34] LABS: BICARBONATE 28.6 MEQ/L (21.0-32.0); POTASSIUM 3.9 MEQ/L (3.5-5.1)
[2017-02-18 04:43] LABS: INTERNATIONAL NORMALIZED RATIO 2.8 RATIO; PROTHROMBIN TIME - PATIENT 32.4 SEC (9.8-11.6)
--- NOTE | 2017-02-18 08:38 | HHI.FPPN ---
Subjective Remarks Pt was sitting up at the side of his bed, eating breakfast, daughter at bedside. He denied any symptoms and said he felt fine. Daughter wants to know if he can go to a SNF. (Rebeka Cordoba MD R1) Objective Vitals Vital Signs Date Time Temp Pulse Resp B/P Pulse Ox O2 Delivery O2 Flow Rate FiO2 02/18/17 06:00 66 02/18/17 05:00 66 02/18/17 04:00 65 02/18/17 03:30 97.6 73 16 147/74 99 02/18/17 03:00 65 02/18/17 02:00 71 02/18/17 01:00 73 02/18/17 00:00 60 02/17/17 23:20 97.6 66 16 136/70 99 02/17/17 23:00 70 02/17/17 22:00 84 02/17/17 21:00 102 02/17/17 20:49 99 02/17/17 20:00 94 02/17/17 19:20 97.7 94 18 116/67 99 02/17/17 19:00 101 02/17/17 18:00 100 02/17/17 17:00 78 02/17/17 16:00 97.6 77 16 138/83 99 02/17/17 16:00 81 02/17/17 15:00 70 02/17/17 14:00 64 02/17/17 13:00 64 02/17/17 12:00 97.5 83 16 120/68 99 02/17/17 12:00 73 02/17/17 11:00 98 02/17/17 10:00 98 02/17/17 09:00 100 02/17/17 08:58 93 21 I/O 02/17/17 02/17/17 02/17/17 02/18/17 02/18/17 02/18/17 07:00 15:00 23:00 07:00 15:00 23:00 Intake Total 480 ml 580 ml 240 ml Balance 480 ml 580 ml 240 ml Intake Oral 480 ml 480 ml 240 ml IV Total 100 ml 0 ml # Voids 3 3 2 # Bowel Movements 2 (Rebeka Cordoba MD R1) Result Diagram: 02/18/1740602/18/17406 Objective Remarks O. CONSTITUTIONAL/GEN: Thin, elderly gentleman in no NAD EYES: conjunctiva normal, PERRLA, EOMI. ENT: Mouth and pharynx normal. NECK: thyroid midline, carotids symmetrical. LUNGS: CTAB, respiratory effort is normal. CARDIOVASCULAR: RR without murmur or gallop. No significant edema. GI/ABD: soft without masses, without organomegaly. NEURO: No focal deficits. SKIN: color normal, no rashes noted. HEME/LYMPH: no bruising, petechia or significant adenopathy MUSC: back is normal in appearance. Extremities are normal in appearance. PSYCH/MENTAL STATUS: Awake and alert. Answers questions appropriately. Pleasant (Rebeka Cordoba MD R1) A/P Assessment and Plan This is an 81-year-old -[place] male with past medical history significant for hypertension and peripheral artery disease (on Plavix). He was admitted for new onset atrial fibrillation and right-sided bronchopneumonia. Pt was started on warfarin with a lovenox bridge. INR today 02/18 is 2.8. Lovenox discontinued today 02/18. PT consulted to assist with disposition and discharge needs. wdw: Dr. Bustillos Discharge Planning Most likely today to SNF or home with home health PT/nursing since INR is therapeutic and pt has clinically improved from pneumonia. (Rebeka Cordoba MD R1) Attending Attestation Patient seen and examined. Case reviewed and discussed with the resident team. Agree with plan of care as discussed with me and documented in the resident note. (Ryan Bustillos MD) Problem List: (1) Atrial fibrillation with RVR Status: Acute Plan: New-onset atrial fibrillation. Tachycardic on admission. Irregularly irregular rate. Status post diltiazem 2 in the ED. Patient is currently on Plavix for peripheral artery disease. Per active trials Plavix is not an appropriate medication for atrial fibrillation, therefore will bridge to warfarin at this time. * Admitted to inpatient * Cardiology on board * Metoprolol 25 mg twice a day * Therapeutic Lovenox at 1 mg/kg every 24 hours (renal dosing) * Warfarin 5 mg daily with pharmacy consult to adjust medication dose as needed , INR 1.9 today 02/17 * Placed on telemetry * 2D echo EF 45-50% (2) Pneumonia Status: Acute Plan: Patient found to have pneumonia on chest x-ray. * Ceftriaxone 1 g every 24 hours - completed 4 days of treatment * Azithromycin 500 mg by mouth daily - completed 4 days of treatment * Duonebs for shortness of breath * Robitussin for cough * Zofran for nausea or vomiting * 1 anaerobic vial growing staph epidermidis, most likely a contaminant * Monitor for worsening signs of sepsis (3) YG (acute kidney injury) Status: Resolved Plan: Patient had acute kidney injury with creatinine of 2.08 and BUN of 75 on admission. Patient's baseline is 1.3 and 20s to 30s respectively. * Creatinine wnl * IV fluids as above * Avoiding nephro toxic medications (4) Hypertension Status: Chronic Plan: Long-standing history of hypertension * Will restart lisinopril due to resolution of YG * Clonidine per hypertensive protocol (5) Nutrition, metabolism, and development symptoms Status: Acute Plan: Diet: Heart healthy diet Monitor electrolytes was accordingly Fluids: Adequate oral intake Vitals every 4 Bed rest with bathroom privileges DVT prophylaxis with SCDs, on Warfarin (Rebeka Cordoba MD R1) Problem Qualifiers (1) Hypertension: Qualified Code: I10 - Essential hypertension Rebeka Cordoba MD R1 February 18, 2017 08:38 Ryan Bustillos MD February 18, 2017 15:25 Rebeka Cordoba MD R1 February 18, 2017 08:38
[2017-02-18] MEDS: UMECLIDINIUM 62.5 MCG/VILANTEROL 25 MCG INHALER INH SCH (09:00)
--- NOTE | 2017-02-18 09:23 | PD.CARD.PN ---
Subjective Subjective Remarks Better still frail Objective Medications Administered Medications Medications (Trade) Dose Ordered Sig/Debbie Route PRN Reason Start Time Stop Time Status Last Admin Dose Admin Sodium Chloride 2 ml 2 ml BID .XX 02/14/17 21:00 02/17/17 21:24 Ceftriaxone Sodium/Sodium Chloride (Rocephin Inj/NS Inj) 100 ml @ 200 mls/hr Q24H IV 02/15/17 18:00 02/17/17 17:36 Azithromycin (Zithromax) 500 mg DAILY PO 02/15/17 09:00 02/17/17 08:53 Guaifenesin/ Dextromethorphan (Robitussin Dm 200-20 Mg/10 ml Liq) 10 ml Q4H PRN PO COUGH 02/14/17 19:00 02/17/17 00:44 Atorvastatin Calcium (Lipitor) 20 mg DAILY PO 02/15/17 09:00 02/17/17 08:53 Warfarin Sodium (Coumadin) 3 mg DAILY@16 PO 02/17/17 16:00 Hold 02/17/17 16:15 Metoprolol Tartrate (Lopressor) 50 mg BID PO 02/17/17 10:00 02/17/17 21:24 Vital Signs / I&O Vital Signs Date Time Temp Pulse Resp B/P Pulse Ox O2 Delivery O2 Flow Rate FiO2 02/18/17 06:00 66 02/18/17 05:00 66 02/18/17 04:00 65 02/18/17 03:30 97.6 73 16 147/74 99 02/18/17 03:00 65 02/18/17 02:00 71 02/18/17 01:00 73 02/18/17 00:00 60 02/17/17 23:20 97.6 66 16 136/70 99 02/17/17 23:00 70 02/17/17 22:00 84 02/17/17 21:00 102 02/17/17 20:49 99 02/17/17 20:00 94 02/17/17 19:20 97.7 94 18 116/67 99 02/17/17 19:00 101 02/17/17 18:00 100 02/17/17 17:00 78 02/17/17 16:00 97.6 77 16 138/83 99 02/17/17 16:00 81 02/17/17 15:00 70 02/17/17 14:00 64 02/17/17 13:00 64 02/17/17 12:00 97.5 83 16 120/68 99 02/17/17 12:00 73 02/17/17 11:00 98 02/17/17 10:00 98 I/O 02/17/17 02/17/17 02/17/17 02/18/17 02/18/17 02/18/17 07:00 15:00 23:00 07:00 15:00 23:00 Intake Total 480 ml 580 ml 240 ml Balance 480 ml 580 ml 240 ml Intake Oral 480 ml 480 ml 240 ml IV Total 100 ml 0 ml # Voids 3 3 2 # Bowel Movements 2 Physical Exam GENERAL: Well-nourished, well-developed patient in no apparent distress. Very frail looking SKIN: Warm and dry. NECK: JVD normal - less than or equal to 5 cm H20. CARDIOVASCULAR: Regular rate and rhythm without murmurs, gallops or rubs. RESPIRATORY: Normal breath sounds - equal bilaterally. No accessory muscle use. No wheezes, rales or rubs. PERIPHERY: No cyanosis or edema. Laboratory Tests Test 02/16/17 02/16/17 02/17/17 02/18/17 04:09 10:55 08:13 04:07 Hemoglobin 12.7 GM/DL 12.2 GM/DL 11.9 GM/DL (13.0-17.0) (13.0-17.0) (13.0-17.0) Hematocrit 38.1 % 37.8 % 37.3 % (39.0-51.0) (39.0-51.0) (39.0-51.0) Mean Corpuscular Volume 72.5 FL 72.5 FL 73.5 FL (80.0-100.0) (80.0-100.0) (80.0-100.0) Mean Corpuscular Hemoglobin 24.1 PG 23.5 PG 23.5 PG (27.0-34.0) (27.0-34.0) (27.0-34.0) Potassium Level 3.4 MEQ/L 3.2 MEQ/L (3.5-5.1) (3.5-5.1) Blood Urea Nitrogen 48 MG/DL (7-18) 38 MG/DL (7-18) 30 MG/DL (7-18) Estimat Glomerular Filtration 71 ML/MIN (>89) 66 ML/MIN (>89) 84 ML/MIN (>89) Rate Prothrombin Time 14.5 SEC 21.9 SEC 32.4 SEC (9.8-11.6) (9.8-11.6) (9.8-11.6) Calcium Level 8.4 MG/DL (8.5-10.1) Laboratory Laboratory Tests Test 02/18/17 04:07 White Blood Count 7.4 TH/MM3 Red Blood Count 5.07 MIL/MM3 Hemoglobin 11.9 GM/DL Hematocrit 37.3 % Mean Corpuscular Volume 73.5 FL Mean Corpuscular Hemoglobin 23.5 PG Mean Corpuscular Hemoglobin 32.0 % Concent Red Cell Distribution Width 15.3 % Platelet Count 316 TH/MM3 Mean Platelet Volume 8.0 FL Prothrombin Time 32.4 SEC Prothromb Time International 2.8 RATIO Ratio Sodium Level 140 MEQ/L Potassium Level 3.9 MEQ/L Chloride Level 103 MEQ/L Carbon Dioxide Level 28.6 MEQ/L Anion Gap 8 MEQ/L Blood Urea Nitrogen 30 MG/DL Creatinine 1.03 MG/DL Estimat Glomerular Filtration 84 ML/MIN Rate Random Glucose 93 MG/DL Calcium Level 8.4 MG/DL Assessment and Plan Problem List: (1) Atrial fibrillation with RVR (2) Pneumonia (3) YG (acute kidney injury) (4) Slow rate of speech (5) Hypertension Assessment and Plan Overall doing better . still has pnemonia will treat, inr 2.8. Stable cv, renal insuff. Discussed Condition With Daughter Problem Qualifiers (1) Hypertension: Qualified Code: I10 - Essential hypertension Nazanin Koroma MD February 18, 2017 09:23
[2017-02-18] MEDS: ATORVASTATIN 20 MG TAB PO SCH (09:34)
[2017-02-18] MEDS: METOPROLOL TARTRATE 25 MG TAB PO SCH (09:34)
[2017-02-18] MEDS: AZITHROMYCIN 250 MG TAB PO SCH (09:34)
[2017-02-18] MEDS: SODIUM CHLORIDE 0.9% FLUSH 10 ML FLUSH SCH (09:35)
[2017-02-18] MEDS ORDERED: WARF-18 PO ×2 (09:49→10:36)
--- NOTE | 2017-02-18 09:49 | HHI.DCPOC ---
Discharge Care Plan Diagnosis: (1) Pneumonia (2) YG (acute kidney injury) (3) Atrial fibrillation with RVR (4) Hypertension Goals to Promote Your Health * To prevent worsening of your condition and complications * To maintain your health at the optimal level Directions to Meet Your Goals Take your medications as prescribed Follow your dietary instruction Follow activity as directed Keep your appointments as scheduled Take your immunizations and boosters as scheduled If your symptoms worsen call your PCP, if no PCP go to Urgent Care Center or Emergency Room Smoking is Dangerous to Your Health. Avoid second hand smoke Call the 24-hour hour crisis hotline for domestic abuse at Rebeka Cordoba MD R1 February 18, 2017 09:49
[2017-02-18] MEDS ORDERED: AZIT500T2 PO (10:11)
[2017-02-18] MEDS ORDERED: CEFU1TAB20 PO (10:36)
--- NOTE | 2017-02-18 10:45 | HHI.DS ---
Discharge Summary Admission Date February 14, 2017 at 18:28 Discharge Date: February 18, 2017 Admitting Diagnosis Atrial fibrillation with RVR and pneumonia (1) Atrial fibrillation with RVR Diagnosis: Principal (2) Pneumonia Diagnosis: Principal (3) YG (acute kidney injury) Diagnosis: Principal (4) Hypertension Diagnosis: Secondary [facility] Cardiology Brief History Of note very poor historian, history obtained from patient and nephew This is an 81-year-old -Swedish male with past medical history significant for hypertension and peripheral artery disease (on Plavix). He has been having some confusion for the last day or so. Has been a little slow in his forming of sentences per the nephew. The nephew thinks that this has been going on for about 24 hours. He's also reports been feeling very fatigued lately for the last 2 days, as well as like his heart has been racing and beating funny. He went to his primary care physician today and listened to his heart and told him to go to the hospital. EMS was called and he was found to have atrial fibrillation with a heart rate in the 120s. He denies ever having an history of atrial fibrillation. He denies feeling any numbness or tingling in his arms or legs. He does admit to severe PAD in his lower extremities and has poor feeling in his lower extremities at baseline. Also the patient has been having a cough for the last 3 weeks. He's had some sputum production. He has felt mildly short of breath throughout that time frame. He denies ever having any fevers. He does admit to decreased appetite. He's also been having nasal congestion and runny nose for last several days. He does not feel that this cough is improved any in the last 3 weeks. He started taking Robitussin but has not been helpful. CBC/BMP: 02/18/17 0407 02/18/17 0407 Significant Findings Laboratory Tests Test 02/16/17 02/16/17 02/17/17 02/18/17 04:09 10:55 08:13 04:07 Hemoglobin 12.7 GM/DL 12.2 GM/DL 11.9 GM/DL (13.0-17.0) (13.0-17.0) (13.0-17.0) Hematocrit 38.1 % 37.8 % 37.3 % (39.0-51.0) (39.0-51.0) (39.0-51.0) Mean Corpuscular Volume 72.5 FL 72.5 FL 73.5 FL (80.0-100.0) (80.0-100.0) (80.0-100.0) Mean Corpuscular Hemoglobin 24.1 PG 23.5 PG 23.5 PG (27.0-34.0) (27.0-34.0) (27.0-34.0) Potassium Level 3.4 MEQ/L 3.2 MEQ/L (3.5-5.1) (3.5-5.1) Blood Urea Nitrogen 48 MG/DL (7-18) 38 MG/DL (7-18) 30 MG/DL (7-18) Estimat Glomerular Filtration 71 ML/MIN (>89) 66 ML/MIN (>89) 84 ML/MIN (>89) Rate Prothrombin Time 14.5 SEC 21.9 SEC 32.4 SEC (9.8-11.6) (9.8-11.6) (9.8-11.6) Calcium Level 8.4 MG/DL (8.5-10.1) PE at Discharge O. CONSTITUTIONAL/GEN: Thin, elderly gentleman in no NAD EYES: conjunctiva normal, PERRLA, EOMI. ENT: Mouth and pharynx normal. NECK: thyroid midline, carotids symmetrical. LUNGS: CTAB, respiratory effort is normal. CARDIOVASCULAR: RR without murmur or gallop. No significant edema. GI/ABD: soft without masses, without organomegaly. NEURO: No focal deficits. SKIN: color normal, no rashes noted. HEME/LYMPH: no bruising, petechia or significant adenopathy MUSC: back is normal in appearance. Extremities are normal in appearance. PSYCH/MENTAL STATUS: Awake and alert. Answers questions appropriately. Pleasant Hospital Course Mr. Tomlinson is an 81-year-old -Swedish male with past medical history significant for hypertension and peripheral artery disease (on Plavix). He was admitted for new onset atrial fibrillation and right-sided bronchopneumonia. AFIB was initially treated with Diltiazem and then he was transitioned to Metoprolol after he converted to NSR. Pt was started on warfarin with a lovenox bridge. INR today 5/30 is 2.8. Lovenox discontinued today 02/18. Pt was discharged to a SNF in stable condition for acute rehab. INR to be rechecked the next day 02/19 before receiving next Warfarin dose which can be adjusted accordingly. He is to complete a 5-day course of Cefuroxime. Please see the documentation below for information on changes in medication regimen. Pt Condition on Discharge: Stable Discharge Disposition: Discharge to SNF Discharge Instructions DIET: Follow Instructions for: Heart Healthy Diet Activities you can perform: Weight Bearing as Lauri Follow up Referrals: Cardiology - 1 Week PCP Follow-up - 2-3 Days New Orders: PT/INR - 02/19/17 New Medications: Cefuroxime (Cefuroxime) 500 Mg Tab 500 MG PO BID Infection #10 Ref 0 TAB Lisinopril (Lisinopril) 10 Mg Tab 10 MG PO DAILY #30 Ref 0 TAB Metoprolol Succinate ER 24 HR (Metoprolol Succinate ER 24 HR) 50 Mg Tab 50 MG PO DAILY #30 Ref 0 TAB Warfarin (Warfarin) 2.5 Mg Tab 2.5 MG PO DAILY Blood Clot Prevention #30 Ref 0 TAB Continued Medications: Rosuvastatin (Crestor) 10 Mg Tab 10 MG PO DAILY Cholesterol Management #30 Ref 0 TAB Umeclidinium-Vilanterol Inh (Anoro Ellipta Inh) 62.5-25 Mcg/Act Aero 1 PUFF INH DAILY COPD #1 Ref 0 INHALER Discontinued Medications: Clopidogrel (Plavix) 75 Mg Tab 75 MG PO DAILY Blood Clot Prevention #30 Ref 0 TAB Lisinopril (Lisinopril) 40 Mg Tab 40 MG PO DAILY Blood Pressure Management #30 Ref 0 TAB Sildenafil (Viagra) 50 Mg Tab 50 MG PO DAILY PRN ERECTILE DYSFUNCTION Ref 0 TAB Rebeka Cordoba MD R1 February 18, 2017 10:45
[2017-02-18] MEDS ORDERED: LISI10TA3 PO (10:46)
[2017-02-18] MEDS ORDERED: METO50TA11 PO (10:46)
[2017-02-18] MEDS ORDERED: WARFARIN SOD 2.5 MG TAB PO ONE (14:00)
== END 2017-02-18 14:00 | DRG 308 ==
LOC: NEPE 16:38 → NEDA 18:28 → HCIS 20:50
PROVIDERS: ADMIT Family Medicine; ATTEND Family Medicine
DX: I48.91 Unspecified atrial fibrillation (principal); J18.0 Bronchopneumonia, unspecified organism; N17.9 Acute kidney failure, unspecified; I24.8 Other forms of acute ischemic heart disease; I73.9 Peripheral vascular disease, unspecified; I10 Essential (primary) hypertension; Z87.891 Personal history of nicotine dependence; R11.2 Nausea with vomiting, unspecified; E78.5 Hyperlipidemia, unspecified; I34.0 Nonrheumatic mitral (valve) insufficiency; R54 Age-related physical debility
CPT/HCPCS: 70450; 70551; 71010; 80048; 82550; 82552; 83605; 84443; 84484; 85025; 85027; 85610; 85730; 87040; 87149; 87186; 87205; 93005; 93306; 94150; 96374; 96375; 96376; J0456; J0696; J1650; J7030; J7050

== ENCOUNTER 2017-03-29 12:16 | Inpatient (IN) | payer MEDICARE ==
[2017-03-29] VITALS (8 sets, daily range): BP systolic 104–148; BP diastolic 55–87; PULSE 76–115; RESP 15–20; TEMP 95.4–98; O2SAT 92–99
[~2017-03-29] VITALS: Ht 180.3 cm; Wt 70.0 kg
[~2017-03-29 12:16] MED LIST changes: -AMLO5TAB22 PO; +CEFU1TAB20 PO; -CLOP75 PO; -CRES10TA OR; -DOXA1 PO; -LISI10TA PO; +LISI10TA3 PO; +METO50TA11 PO; +ROSU10 PO; -ST JTAB PO; +UMEC1AER INH; +WARF-18 PO
[2017-03-29 13:15] LABS: AUTOMATED NEUTROPHIL # 4.4 TH/MM3 (1.8-7.7); BASOPHIL % 0.4 % (0.0-2.0); EOSINOPHIL % 0.2 % (0.0-4.0); HEMATOCRIT 35.7 % (39.0-51.0); HEMO FLAGS DIFF FINAL; LYMPH % 16.9 % (9.0-44.0); LYMPHOCYTE # 1.1 TH/MM3 (1.0-4.8); MEAN CELL VOLUME 74.5 FL (80.0-100.0); MEAN CORPUSCULAR HEMOGLOBIN 23.6 PG (27.0-34.0); MEAN CORPUSCULAR HGB CONC 31.7 % (32.0-36.0); MONO % 15.8 % (0.0-8.0); NEUT % 66.7 % (16.0-70.0); PLATELET COUNT 255 TH/MM3 (150-450); RED BLOOD COUNT 4.79 MIL/MM3 (4.50-5.90); WHITE BLOOD COUNT 6.6 TH/MM3 (4.0-11.0)
[2017-03-29] MEDS ORDERED: COUM1TAB PO (13:15)
[2017-03-29] MEDS ORDERED: METR-1 PO (13:15)
[2017-03-29] MEDS ORDERED: LISI20TA3 PO (13:15)
[2017-03-29] MEDS ORDERED: COUM2.5T PO (13:15)
[2017-03-29] MEDS ORDERED: PLAV75TA29 PO (13:15)
--- NOTE | 2017-03-29 13:59 | RADRPT ---
EXAM DATE/TIME: 03/29/2017 13:39 [facility] COMPARISON: No previous studies available for comparison. INDICATIONS : Cough, weakness for 3 days MEDICAL HISTORY : None. SURGICAL HISTORY : None. ENCOUNTER: Initial ACUITY: 3 days PAIN SCORE: 0/10 LOCATION: Bilateral chest FINDINGS: PA and lateral views of the chest demonstrates hyperinflation which can be seen with CO PD. Minimal density lower lobes posteriorly on the left. Heart is normal in size. The mediastinal co ntours are unremarkable. Osseous structures are intact. CONCLUSION: Hyperinflation which can be seen with COPD. Left lower lobe density could be ate lectasis or infiltrate. Rolando Long MD on March 29, 2017 at 13:57 Board Certified Radiologist. This report was verified electronically.
[2017-03-29 14:08] LABS: ALKALINE PHOSPHATASE 97 U/L (45-117); ALT (GPT) 21 U/L (12-78); ANION GAP 10 MEQ/L (5-15); AST (GOT) 27 U/L (15-37); BICARBONATE 26.7 MEQ/L (21.0-32.0); BLOOD UREA NITROGEN 31 MG/DL (7-18); CHLORIDE 105 MEQ/L (98-107); GLOMERULAR FILTRATION RATE 57 ML/MIN (>89); MAGNESIUM 1.8 MG/DL (1.5-2.5); SODIUM (NA) 142 MEQ/L (136-145); TOTAL BILIRUBIN ADULT 0.6 MG/DL (0.2-1.0)
[2017-03-29 14:22] LABS: POTASSIUM 2.5 MEQ/L (3.5-5.1)
[2017-03-29] MEDS ORDERED: POTASSIUM CHLORIDE 25 MEQ EFFERVESCENT TAB PO ONE ×2 (14:45→16:15)
[2017-03-29 15:18] LABS: BLOOD, URINE SMALL (NEG); GLUCOSE,URINE NEG (NEG); HYALINE CAST, URINE 1 /lpf (RARE); KETONE, URINE NEG (NEG); MUCUS URINE FEW /lpf (OCC); NITRITE,URINE NEG (NEG); PH, URINE 5.5 (5.0-8.5); SQUAMOUS EPITHELIAL CELL URINE 1 /hpf (0-5); URINE COLOR YELLOW (YELLW/STRAW)
[2017-03-29 15:19] LABS: COMMENT (UR) CULT NOT INDICATED; CULTURE IF INDICATED CULT NOT INDICATED
--- NOTE | 2017-03-29 15:51 | PD ---
HPI Chief Complaint: General Weakness Time Seen by Provider: 12:32 Travel History International Travel<30 days: No Contact w/Intl Traveler<30days: No Traveled to known affect area: No History of Present Illness HPI 81-year-old male presents with his daughter with complaint of generalized weakness and severe diarrhea. He was on antibiotics for pneumonia which she has completed. She states that he started Flagyl yesterday after being informed that his C. difficile turned positive. She is concerned with how weak he is. She denies other complaints for him. Patient does have dementia so history is mainly obtained from daughter and limited. PFSH Past Medical History Hx Anticoagulant Therapy: Yes Atrial Fibrillation: Yes Cardiovascular Problems: Yes Cerebrovascular Accident: Yes Coronary Artery Disease: Yes Hypertension: Yes Influenza Vaccination: No Past Surgical History Cardiac Surgery: Yes (CAROTID ARTERY) Social History Alcohol Use: No Tobacco Use: No (FORMER) Substance Use: No Allergies-Medications (Allergen,Severity, Reaction): Coded Allergies: No Known Allergies (Verified , 03/29/17) Reported Meds & Prescriptions Reported Meds & Active Scripts Active Metoprolol Succinate ER 24 HR (Metoprolol Succinate) 50 Mg Tab 50 Mg PO DAILY Reported Coumadin (Warfarin) 1 Mg Tab 3.5 Mg PO DAILY Take 1 tablet (1mg) with 2.5mg tablet for a total dose of 3.5mg Coumadin (Warfarin) 2.5 Mg Tab 3.5 Mg PO DAILY Take 1 tablet (2.5mg) with 1mg tablet for a total dose of 3.5mg Flagyl (Metronidazole) 500 Mg Tab 500 Mg PO TID Plavix (Clopidogrel Bisulfate) 75 Mg Tab 75 Mg PO DAILY Lisinopril-Hctz 20-25 Mg Tab 1 Tab PO DAILY Anoro Ellipta Inh (Umeclidinium/Vilanterol) 62.5-25 Mcg/Act Aero 1 Puff INH DAILY Crestor (Rosuvastatin Calcium) 10 Mg Tab 10 Mg PO DAILY Review of Systems ROS Limitations: Poor Historian Except as stated in HPI: all other systems reviewed are Neg Physical Exam Narrative GENERAL: Well-nourished, well-developed patient. SKIN: Warm and dry. HEAD: Normocephalic and atraumatic. EYES: No injection or drainage. ENT: No nasal drainage noted. NECK: Supple, trachea midline. CARDIOVASCULAR: irregular rate and rhythm RESPIRATORY: Breath sounds equal bilaterally at apices. No accessory muscle use. GASTROINTESTINAL: Abdomen soft, non-tender, nondistended. EXTREMITIES: Chronic appearing edema noted to bilateral lower extremities. NEUROLOGICAL: Awake. Moves extremities. Normal speech. Data Data Last Documented VS Vital Signs Date Time Temp Pulse Resp B/P Pulse Ox O2 Delivery O2 Flow Rate FiO2 03/29/17 15:51 86 16 104/70 99 Room Air 03/29/17 14:13 2 03/29/17 12:17 98.0 Orders Magnesium (Mg) (03/29/17 12:32) Phosphorus (Po4) (03/29/17 12:32) Complete Blood Count With Diff (03/29/17 12:32) Comprehensive Metabolic Panel (03/29/17 12:32) Iv Access Insert/Monitor (03/29/17 12:32) Ecg Monitoring (03/29/17 12:32) Oximetry (03/29/17 12:32) Chest, Pa & Lat (03/29/17 ) B-Type Natriuretic Peptide (03/29/17 12:42) Urinalysis - C+S If Indicated (03/29/17 14:14) Potassium Chloride Eff (K-Lyte Cl Eff) (03/29/17 14:45) Electrocardiogram (03/29/17 14:38) Admit Order (Ed Use Only) (03/29/17 15:55) Labs Laboratory Tests Test 03/29/17 03/29/17 13:00 14:25 White Blood Count 6.6 TH/MM3 Red Blood Count 4.79 MIL/MM3 Hemoglobin 11.3 GM/DL Hematocrit 35.7 % Mean Corpuscular Volume 74.5 FL Mean Corpuscular Hemoglobin 23.6 PG Mean Corpuscular Hemoglobin 31.7 % Concent Red Cell Distribution Width 19.0 % Platelet Count 255 TH/MM3 Mean Platelet Volume 8.3 FL Neutrophils (%) (Auto) 66.7 % Lymphocytes (%) (Auto) 16.9 % Monocytes (%) (Auto) 15.8 % Eosinophils (%) (Auto) 0.2 % Basophils (%) (Auto) 0.4 % Neutrophils # (Auto) 4.4 TH/MM3 Lymphocytes # (Auto) 1.1 TH/MM3 Monocytes # (Auto) 1.0 TH/MM3 Eosinophils # (Auto) 0.0 TH/MM3 Basophils # (Auto) 0.0 TH/MM3 CBC Comment DIFF FINAL Differential Comment Sodium Level 142 MEQ/L Potassium Level 2.5 MEQ/L Chloride Level 105 MEQ/L Carbon Dioxide Level 26.7 MEQ/L Anion Gap 10 MEQ/L Blood Urea Nitrogen 31 MG/DL Creatinine 1.43 MG/DL Estimat Glomerular Filtration 57 ML/MIN Rate Random Glucose 96 MG/DL Calcium Level 8.5 MG/DL Phosphorus Level 2.5 MG/DL Magnesium Level 1.8 MG/DL Total Bilirubin 0.6 MG/DL Aspartate Amino Transf 27 U/L (AST/SGOT) Alanine Aminotransferase 21 U/L (ALT/SGPT) Alkaline Phosphatase 97 U/L B-Type Natriuretic Peptide 490 PG/ML Total Protein 7.0 GM/DL Albumin 2.9 GM/DL Urine Color YELLOW Urine Turbidity CLEAR Urine pH 5.5 Urine [address] [place] 1.020 Urine Protein 30 mg/dL Urine Glucose (UA) NEG mg/dL Urine Ketones NEG mg/dL Urine Occult Blood SMALL Urine Nitrite NEG Urine Bilirubin NEG Urine Urobilinogen LESS THAN 2.0 MG/DL Urine Leukocyte Esterase NEG Urine RBC 3 /hpf Urine WBC 2 /hpf Urine Squamous Epithelial 1 /hpf Cells Urine Hyaline Casts 1 /lpf Urine Mucus FEW /lpf Microscopic Urinalysis Comment CULT NOT INDICATED MDM Medical Decision Making Medical Screen Exam Complete: Yes Emergency Medical Condition: Yes Medical Record Reviewed: Yes (past history confirmed) Interpretation(s) CBC & BMP Diagram 03/29/17 13:00 Differential Diagnosis Electrolyte abnormality, renal failure, anemia.... Narrative Course Will check blood work and reevaluate Labs revealed critical hypokalemia. Magnesium and EKG added on. Family updated. Agree to admission Physician Communication Physician Communication dr dejesus agrees to admit Diagnosis Primary Impression: Hypokalemia Additional Impressions: C. difficile diarrhea Weakness Brianna Malhotra MD Mar 29, 2017 15:51
[2017-03-29] MEDS ORDERED: ONDANSETRON HCL 4 MG/2 ML VIAL IVP PRN (16:15)
[2017-03-29] MEDS ORDERED: ACETAMINOPHEN 325 MG TAB PO PRN ×2 (16:15)
[2017-03-29] MEDS ORDERED: NALOXONE HCL 0.4 MG/ML AMP IV PRN (16:15)
[2017-03-29] MEDS ORDERED: SODIUM CHLORIDE 0.9% FLUSH 10 ML FLUSH IV FLUSH PRN (16:15)
--- NOTE | 2017-03-29 16:18 | HHI.HP ---
HPI Service [facility] Primary Care Physician Juan Serna MD Admission Diagnosis hypokalemia Diagnoses: (1) C. difficile diarrhea (2) Acute on chronic systolic (congestive) heart failure (3) Hypokalemia (4) YG (acute kidney injury) (5) Weakness generalized Chief Complaint: Severe episodes of diarrhea Travel History International Travel<30 Days: No Contact w/Intl Traveler <30 Da: No Traveled to Known Affected Are: No History of Present Illness 81-year-old -[place] male with past medical history significant for hypertension, atrial fibrillation and peripheral artery disease who was previously admitted to a local nursing facility, where patient completed a second round of a 10 day course of antibiotic for pneumonia on 03/21/17 was diagnosed on 03/26/17 with C. difficile after patient came and I will multiple episodes of foul-smelling diarrhea and was started on a ten-day course of Flagyl , which patient to the second dose this morning. However per patient's daughter the diarrhea has gotten worse with more frequent and foul-smelling episodes associated with generalized weakness. Patient has been noted to have increasing bilateral lower extremity swelling along with significant shortness of breath. He denies any chest pain, has had no febrile episode. During his stay at that local nursing facility patient was previously treated for also about her pneumonia with a ten-day course starting 02/23/17. Review of Systems Except as stated in HPI: all other systems reviewed are Neg Past Family Social History Past Medical History A. fib Coronary artery disease HTN PAD Past Surgical History Carotid endarterectomy Reported Medications Coumadin (Warfarin) 1 Mg Tab 3.5 Mg PO DAILY Take 1 tablet (1mg) with 2.5mg tablet for a total dose of 3.5mg Coumadin (Warfarin) 2.5 Mg Tab 3.5 Mg PO DAILY Take 1 tablet (2.5mg) with 1mg tablet for a total dose of 3.5mg Flagyl (Metronidazole) 500 Mg Tab 500 Mg PO TID Plavix (Clopidogrel Bisulfate) 75 Mg Tab 75 Mg PO DAILY Lisinopril-Hctz 20-25 Mg Tab 1 Tab PO DAILY Anoro Ellipta Inh (Umeclidinium/Vilanterol) 62.5-25 Mcg/Act Aero 1 Puff INH DAILY Crestor (Rosuvastatin Calcium) 10 Mg Tab 10 Mg PO DAILY Allergies: Coded Allergies: No Known Allergies (Verified , 03/29/17) Family History History positive for heart disease, COPD Social History Arabella Plascencia in a House alone since pasted away 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 SKIN: No rashes, ecchymoses or lesions. Cool and dry. HEAD: Atraumatic. Normocephalic. No temporal or scalp tenderness. EYES: Pupils equal round and reactive. Extraocular motions intact. No scleral icterus. No injection or drainage. ENT: Nose without bleeding, purulent drainage or septal hematoma. Throat without erythema, tonsillar hypertrophy or exudate. Uvula midline. Airway patent. NECK: Trachea midline. No JVD or lymphadenopathy. Supple, nontender, no meningeal signs. CARDIOVASCULAR: Irregular Regular rate and rhythm without murmurs, gallops, or rubs. RESPIRATORY: Clear to auscultation. Breath sounds equal bilaterally. No wheezes , rales, or rhonchi. GASTROINTESTINAL: Abdomen soft, non-tender, nondistended. No hepato-splenomegaly , or palpable masses. No guarding. MUSCULOSKELETAL: Extremities without clubbing, cyanosis;+2 BLE edema. No joint tenderness, effusion, or edema noted. No calf tenderness. Negative Homans sign bilaterally. NEUROLOGICAL: Awake and alert. Cranial nerves II through XII intact. Motor and sensory grossly within normal limits. Five out of 5 muscle strength in all muscle groups. Normal speech. Laboratory Laboratory Tests Test 03/29/17 03/29/17 13:00 14:25 White Blood Count 6.6 Red Blood Count 4.79 Hemoglobin 11.3 Hematocrit 35.7 Mean Corpuscular Volume 74.5 Mean Corpuscular Hemoglobin 23.6 Mean Corpuscular Hemoglobin 31.7 Concent Red Cell Distribution Width 19.0 Platelet Count 255 Mean Platelet Volume 8.3 Neutrophils (%) (Auto) 66.7 Lymphocytes (%) (Auto) 16.9 Monocytes (%) (Auto) 15.8 Eosinophils (%) (Auto) 0.2 Basophils (%) (Auto) 0.4 Neutrophils # (Auto) 4.4 Lymphocytes # (Auto) 1.1 Monocytes # (Auto) 1.0 Eosinophils # (Auto) 0.0 Basophils # (Auto) 0.0 CBC Comment DIFF FINAL Differential Comment Sodium Level 142 Potassium Level 2.5 Chloride Level 105 Carbon Dioxide Level 26.7 Anion Gap 10 Blood Urea Nitrogen 31 Creatinine 1.43 Estimat Glomerular Filtration 57 Rate Random Glucose 96 Calcium Level 8.5 Phosphorus Level 2.5 Magnesium Level 1.8 Total Bilirubin 0.6 Aspartate Amino Transf 27 (AST/SGOT) Alanine Aminotransferase 21 (ALT/SGPT) Alkaline Phosphatase 97 B-Type Natriuretic Peptide 490 Total Protein 7.0 Albumin 2.9 Urine Color YELLOW Urine Turbidity CLEAR Urine pH 5.5 Urine Specific [place] 1.020 Urine Protein 30 Urine Glucose (UA) NEG Urine Ketones NEG Urine Occult Blood SMALL Urine Nitrite NEG Urine Bilirubin NEG Urine Urobilinogen LESS THAN 2.0 Urine Leukocyte Esterase NEG Urine RBC 3 Urine WBC 2 Urine Squamous Epithelial 1 Cells Urine Hyaline Casts 1 Urine Mucus FEW Microscopic Urinalysis Comment CULT NOT INDICATED Result Diagram: 03/29/17 1300 03/29/17 1300 Assessment and Plan Problem List: (1) C. difficile diarrhea ICD Code: A04.7 Status: Acute (2) Acute on chronic systolic (congestive) heart failure ICD Code: I50.23 Status: Acute (3) Hypokalemia ICD Code: E87.6 Status: Acute (4) YG (acute kidney injury) ICD Code: N17.9 Status: Resolved (5) Atrial fibrillation with RVR ICD Code: I48.91 Status: Acute (6) Weakness generalized ICD Code: R53.1 Status: Acute Assessment and Plan 81-year-old man with Severe complicated C. difficile diarrhea Start IV Flagyl 500 every 8 as well as vancomycin 125 mg every 6 hour However secondary to acute on chronic CHF with hold on IV fluid hydration Acute on chronic CHF systolic IV Lasix 20 mg daily Secondary to worsening renal function, will hold on AVIVA inhibitor Check 2-D echo Potassium supplements Hypokalemia Give 75 mEq of K Acute on chronic kidney disease Secondary to CHF will hold on fluid hydration and monitor BUN/creatinine Hold on all nephrotoxic drugs History of atrial fibrillation Check INR/PT Resume Coumadin when INR PT known, Resume beta maynor Peripheral artery disease Resume Plavix Generalized weakness Multifactorial PT consult to treat and eval Hypertension Hold on lisinopril/HCTZ Resume Lopressor with holding parameters Hyperlipidemia Resume statin DVT prophylaxis Coumadin Code Status Full code Discussed Condition With Patient, daughter, ED physician Rolando Tineo MD Mar 29, 2017 16:18
[2017-03-29] MEDS ORDERED: Vancomycin Consult Pharmacy 1 EA OTHER SCH (16:45)
[2017-03-29] MEDS ORDERED: FUROSEMIDE 20 MG/2 ML VIAL IV PUSH ONE (16:45)
[2017-03-29] MEDS ORDERED: RESP: ALBUTEROL 2.5 MG/IPRATROPIUM 0.5 MG NEB (PRN) NEB (17:00)
[2017-03-29 17:45] LABS: INTERNATIONAL NORMALIZED RATIO 1.7 RATIO; PROTHROMBIN TIME - PATIENT 18.7 SEC (9.8-11.6)
[2017-03-29] MEDS ORDERED: VANCOMYCIN 1,000 MG/NS 250 ML IV ONE ×2 (18:00)
[2017-03-29] MEDS: VANCOMYCIN 500 MG VIAL (FOR ORAL USE ONLY) PO SCH ×2 (19:05→20:26)
[2017-03-29] MEDS: metroNIDAZOLE 500 MG INJ 100 ML IV SCH (19:06)
[2017-03-29] MEDS: SODIUM CHLORIDE 0.9% FLUSH 10 ML FLUSH IV FLUSH SCH (20:26)
--- NOTE | 2017-03-29 21:46 | EKG ---
Date Performed: 03/29/2017 Time Performed: 15:42:23 PTAGE: 81 years EKG: ATRIAL FIBRILLATION MARKED LEFT AXIS DEVIATION INCOMPLETE RIGHT BUNDLE BRANCH BLOCK ABNORMA L ECG PREVIOUS TRACING : 02/15/2017 11.28 Compared to the previous tracing, previously felt to be afl utter DOCTOR: Mod[place] Choe Interpretating Date/Time 03/29/2017 21:45:52
--- NOTE | 2017-03-29 23:28 | RADRPT ---
EXAM DATE/TIME: 03/29/2017 23:15 [place] COMPARISON: CT BRAIN W/O CONTRAST, February 14, 2017, 17:14. INDICATIONS : Altered mental status. RADIATION DOSE: 56.35 CTDIvol (mGy) MEDICAL HISTORY : Congestive hearrt failure. Cardiovascular disease Hypertension.CVA. SURGICAL HISTORY : None. ENCOUNTER: Initial ACUITY: 1 day PAIN SCALE: 0/10 LOCATION: cranial TECHNIQUE: Multiple contiguous axial images were obtained of the head. Using automated exposure control and adj ustment of the mA and/or kV according to patient size, radiation dose was kept as low as reasonably a chievable to obtain optimal diagnostic quality images. DICOM format image data is available electro nically for review and comparison. FINDINGS: CEREBRUM: Scattered areas of low-attenuation are seen throughout the white matter. The ventricles are normal fo r age. No evidence of midline shift, mass lesion, hemorrhage or acute infarction. No extra-axial fl uid collections are seen. POSTERIOR FOSSA: The cerebellum and brainstem are intact. The 4th ventricle is midline. The cerebellopontine angle i s unremarkable. EXTRACRANIAL: The visualized portion of the orbits is intact. SKULL: The calvaria is intact. No evidence of skull fracture. CONCLUSION: No acute disease. 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 No change. Rolando Long MD on March 29, 2017 at 23:25 Board Certified Radiologist. This report was verified electronically.
[2017-03-30] VITALS (7 sets, daily range): BP systolic 107–153; BP diastolic 53–82; PULSE 84–101; RESP 16–18; TEMP 96.2–97.4; O2SAT 96–98
[2017-03-30] MEDS: metroNIDAZOLE 500 MG INJ 100 ML IV SCH ×3 (02:00→16:49)
[2017-03-30 05:51] LABS: AUTOMATED NEUTROPHIL # 4.7 TH/MM3 (1.8-7.7); BASOPHIL % 0.3 % (0.0-2.0); EOSINOPHIL # 0.1 TH/MM3 (0-0.4); EOSINOPHIL % 0.7 % (0.0-4.0); HEMATOCRIT 33.9 % (39.0-51.0); HEMO FLAGS DIFF FINAL; LYMPH % 19.9 % (9.0-44.0); LYMPHOCYTE # 1.4 TH/MM3 (1.0-4.8); MEAN CELL VOLUME 74.1 FL (80.0-100.0); MEAN CORPUSCULAR HEMOGLOBIN 23.3 PG (27.0-34.0); MEAN CORPUSCULAR HGB CONC 31.4 % (32.0-36.0); MONO % 11.9 % (0.0-8.0); NEUT % 67.2 % (16.0-70.0); PLATELET COUNT 229 TH/MM3 (150-450); RED BLOOD COUNT 4.57 MIL/MM3 (4.50-5.90)
[2017-03-30 06:00] LABS: INTERNATIONAL NORMALIZED RATIO 1.7 RATIO; PROTHROMBIN TIME - PATIENT 18.8 SEC (9.8-11.6)
[2017-03-30 06:06] LABS: ALT (GPT) 24 U/L (12-78); ANION GAP 9 MEQ/L (5-15); AST (GOT) 34 U/L (15-37); BICARBONATE 25.7 MEQ/L (21.0-32.0); BLOOD UREA NITROGEN 25 MG/DL (7-18); CHLORIDE 106 MEQ/L (98-107); GLOMERULAR FILTRATION RATE 72 ML/MIN (>89); SODIUM (NA) 141 MEQ/L (136-145)
[2017-03-30 06:16] LABS: ALKALINE PHOSPHATASE 90 U/L (45-117); POTASSIUM 3.4 MEQ/L (3.5-5.1); TOTAL BILIRUBIN ADULT 0.7 MG/DL (0.2-1.0)
[2017-03-30] MEDS ORDERED: POTASSIUM CHLORIDE 25 MEQ EFFERVESCENT TAB PO ONE (07:45)
[2017-03-30] MEDS: SODIUM CHLORIDE 0.9% FLUSH 10 ML FLUSH IV FLUSH SCH ×2 (09:58→20:44)
[2017-03-30] MEDS: ATORVASTATIN 20 MG TAB PO SCH (09:58)
[2017-03-30] MEDS: FUROSEMIDE 20 MG/2 ML VIAL IV PUSH SCH (09:58)
[2017-03-30] MEDS: VANCOMYCIN 500 MG VIAL (FOR ORAL USE ONLY) PO SCH ×4 (09:58→20:41)
[2017-03-30] MEDS: METOPROLOL SUCCINATE 50 MG EXTENDED RELEASE TAB PO SCH (09:58)
[2017-03-30] MEDS: CLOPIDOGREL 75 MG TAB PO SCH (09:58)
--- NOTE | 2017-03-30 11:37 | HHI.PR ---
Subjective Remarks Follow-up C. difficile diarrhea/hypokalemia/acute on chronic CHF 03/30/17-patient seen and examined, diarrheal episode improving, potassium 3.4. Patient denies any shortness of breath and reports improvement of bilateral lower extremity edema Objective Vitals Vital Signs Date Time Temp Pulse Resp B/P Pulse Ox O2 Delivery O2 Flow Rate FiO2 03/30/17 08:00 97.2 84 16 115/57 96 03/30/17 03:45 96.2 84 16 107/53 98 03/30/17 00:00 97.4 88 18 141/59 97 03/29/17 23:45 98.0 101 20 148/87 94 03/29/17 22:45 97.5 91 20 119/59 94 03/29/17 20:00 96.5 78 18 126/66 94 03/29/17 18:15 95.4 115 19 136/79 92 03/29/17 15:51 86 16 104/70 99 Room Air 03/29/17 14:13 76 16 123/57 96 Nasal Cannula 2 03/29/17 12:43 89 16 108/55 94 Nasal Cannula 2 03/29/17 12:17 98.0 76 15 123/58 98 I/O 03/29/17 03/29/17 03/29/17 03/30/17 03/30/17 03/30/17 07:00 15:00 23:00 07:00 15:00 23:00 Intake Total 360 ml 360 ml 100 ml Output Total 400 ml Balance 360 ml -40 ml 100 ml Intake Oral 360 ml 360 ml IV Total 100 ml Output Urine Total 400 ml # Voids 1 # Bowel Movements 0 Result Diagram: 03/30/17 0506 03/30/17 0506 Imaging Last Impressions Head CT 03/29/17 0000 Signed Impressions: Service Date/Time: Wednesday, March 29, 2017 23:15 - CONCLUSION: No acute disease. 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 No change. Rolando Long MD Chest X-Ray 03/29/17 0000 Signed Impressions: Service Date/Time: Wednesday, March 29, 2017 13:39 - CONCLUSION: Hyperinflation which can be seen with COPD. Left lower lobe density could be atelectasis or infiltrate. Rolando Long MD Objective Remarks GENERAL: NAD SKIN: Warm and dry. HEAD: Normocephalic. EYES: No scleral icterus. No injection or drainage. NECK: Supple, trachea midline. No JVD or lymphadenopathy. CARDIOVASCULAR: Regular rate and rhythm with II/ POOJA RESPIRATORY: Breath sounds equal bilaterally. No accessory muscle use. GASTROINTESTINAL: Abdomen soft, non-tender, nondistended. MUSCULOSKELETAL: No cyanosis, +trace edema BLE. BACK: Nontender without obvious deformity. No CVA tenderness. A/P Problem List: (1) C. difficile diarrhea ICD Code: A04.7 Status: Acute (2) Acute on chronic systolic (congestive) heart failure ICD Code: I50.23 Status: Acute (3) Hypokalemia ICD Code: E87.6 Status: Acute (4) YG (acute kidney injury) ICD Code: N17.9 Status: Resolved (5) Atrial fibrillation with RVR ICD Code: I48.91 Status: Acute (6) Weakness generalized ICD Code: R53.1 Status: Acute Assessment and Plan 81-year-old man with Severe complicated C. difficile diarrhea Continue IV Flagyl 500 every 8 as well as vancomycin 125 mg every 6 hour However secondary to acute on chronic CHF will continue to hold on IV fluid hydration Acute on chronic CHF systolic Continue IV Lasix 20 mg daily Secondary to worsening renal function, will hold on AVIVA inhibitor Limited 2-D echo pending Potassium supplement Hypokalemia Give 50 mEq of K Acute on chronic kidney disease-improving Secondary to CHF will hold on fluid hydration and monitor BUN/creatinine Hold on all nephrotoxic drugs History of atrial fibrillation Daily INR/PT monitoring Continue Coumadin Continue beta maynor Peripheral artery disease Resume Plavix Generalized weakness Multifactorial PT consult to treat and eval Hypertension Hold on lisinopril/HCTZ Continue Lopressor with holding parameters Hyperlipidemia On statin DVT prophylaxis Coumadin Rolando Tineo MD Mar 30, 2017 11:37
[2017-03-30] MEDS: WARFARIN SOD 2.5 MG TAB PO SCH (16:47)
[2017-03-30] MEDS: WARFARIN SOD 1 MG TAB PO SCH (16:49)
[2017-03-30] MEDS: VANCOMYCIN 1,000 MG/NS 250 ML IV SCH ×2 (17:47)
[2017-03-31] MEDS: metroNIDAZOLE 500 MG INJ 100 ML IV SCH ×3 (02:24→17:09)
[2017-03-31 04:11] VITALS: BP 145/70; PULSE 98; RESP 16; TEMP 97.3; O2SAT 100
[2017-03-31 06:53] LABS: INTERNATIONAL NORMALIZED RATIO 1.6 RATIO; PROTHROMBIN TIME - PATIENT 17.7 SEC (9.8-11.6)
[2017-03-31 07:33] LABS: POTASSIUM 2.8 MEQ/L (3.5-5.1)
[2017-03-31 08:00] VITALS: BP_SYST 147; BP_SYST 164; BP_DIAS 70; BP_DIAS 88; PULSE 96; PULSE 97; RESP 15; RESP 20; TEMP 97.2; TEMP 97.4; O2SAT 98
[2017-03-31] MEDS ORDERED: POTASSIUM CHLORIDE 25 MEQ EFFERVESCENT TAB PO ONE (08:00)
[2017-03-31] MEDS: METOPROLOL SUCCINATE 50 MG EXTENDED RELEASE TAB PO SCH (08:40)
[2017-03-31] MEDS: ATORVASTATIN 20 MG TAB PO SCH (08:42)
[2017-03-31] MEDS: CLOPIDOGREL 75 MG TAB PO SCH (08:42)
[2017-03-31] MEDS: FUROSEMIDE 20 MG/2 ML VIAL IV PUSH SCH (08:42)
[2017-03-31] MEDS: SODIUM CHLORIDE 0.9% FLUSH 10 ML FLUSH IV FLUSH SCH ×2 (08:43→20:27)
[2017-03-31] MEDS: VANCOMYCIN 500 MG VIAL (FOR ORAL USE ONLY) PO SCH ×4 (08:43→20:26)
[2017-03-31 12:00] VITALS: BP 118/71; PULSE 98; RESP 20; TEMP 96.6; O2SAT 97
--- NOTE | 2017-03-31 13:47 | HHI.PR ---
Subjective Remarks Follow-up C. difficile diarrhea/hypokalemia/acute on chronic CHF 03/30/17-patient seen and examined, diarrheal episode improving, potassium 3.4. Patient denies any shortness of breath and reports improvement of bilateral lower extremity edema 03/31/17-patient seen and examined, diarrhea resolved and patient stable. Potassium 2.8 Objective Vitals Vital Signs Date Time Temp Pulse Resp B/P Pulse Ox O2 Delivery O2 Flow Rate FiO2 03/31/17 12:00 96.6 98 20 118/71 97 03/31/17 08:00 97.4 97 20 164/88 98 03/31/17 04:11 97.3 98 16 145/70 100 03/30/17 22:57 97.4 99 16 115/79 97 03/30/17 20:00 97.1 101 16 123/78 98 03/30/17 16:00 97.1 90 16 140/82 98 I/O 03/30/17 03/30/17 03/30/17 03/31/17 03/31/17 03/31/17 07:00 15:00 23:00 07:00 15:00 23:00 Intake Total 360 ml 475 ml 500 ml 250 ml Output Total 400 ml 275 ml 650 ml 300 ml Balance -40 ml 200 ml -150 ml -50 ml Intake Oral 360 ml 375 ml 250 ml 250 ml IV Total 100 ml 250 ml Output Urine Total 400 ml 275 ml 650 ml 300 ml # Voids 1 # Bowel Movements 0 0 0 Result Diagram: 03/30/17 0506 03/31/17 0541 Objective Remarks GENERAL: NAD SKIN: Warm and dry. HEAD: Normocephalic. EYES: No scleral icterus. No injection or drainage. NECK: Supple, trachea midline. No JVD or lymphadenopathy. CARDIOVASCULAR: Regular rate and rhythm with II/ POOJA RESPIRATORY: Breath sounds equal bilaterally. No accessory muscle use. GASTROINTESTINAL: Abdomen soft, non-tender, nondistended. MUSCULOSKELETAL: No cyanosis, +trace edema BLE. BACK: Nontender without obvious deformity. No CVA tenderness. A/P Problem List: (1) C. difficile diarrhea ICD Code: A04.7 Status: Acute (2) Acute on chronic systolic (congestive) heart failure ICD Code: I50.23 Status: Acute (3) Hypokalemia ICD Code: E87.6 Status: Acute (4) YG (acute kidney injury) ICD Code: N17.9 Status: Resolved (5) Atrial fibrillation with RVR ICD Code: I48.91 Status: Acute (6) Weakness generalized ICD Code: R53.1 Status: Acute Assessment and Plan 81-year-old man with Severe complicated C. difficile diarrhea-resolved Continue IV Flagyl 500 every 8 as well as vancomycin 125 mg every 6 hour Acute on chronic CHF systolic Continue IV Lasix 20 mg daily Secondary to worsening renal function, will hold on AVIVA inhibitor Limited 2-D echo pending Potassium supplement Hypokalemia Give 75 mEq of K Acute on chronic kidney disease-improving Secondary to CHF will hold on fluid hydration and monitor BUN/creatinine Hold on all nephrotoxic drugs History of atrial fibrillation Daily INR/PT monitoring Continue Coumadin Continue beta maynor Peripheral artery disease Continue Plavix Generalized weakness Multifactorial PT consult to treat and eval Hypertension Hold on lisinopril/HCTZ Continue Lopressor with holding parameters Hyperlipidemia On statin DVT prophylaxis Coumadin Rolando Tineo MD Mar 31, 2017 13:47
--- NOTE | 2017-03-31 14:42 | HHI.FF ---
Face to Face Verification Diagnosis: (1) Acute on chronic systolic (congestive) heart failure (2) YG (acute kidney injury) (3) C. difficile diarrhea (4) Weakness generalized (5) Hypokalemia Physical Therapy Order: Evaluate and Treat Home Health Nursing Order: Signs/symptoms of disease process I have seen patient Scott Tomlinson on 03/31/17. My clinical findings support the need for the requested home health care services because: Deconditioned w/ increased weakness I certify that my clinical findings support that this patient is homebound because: Poor cardiac reserve Rolando Tineo MD Mar 31, 2017 14:42
[2017-03-31] MEDS ORDERED: POTA-163 PO (14:43)
[2017-03-31] MEDS ORDERED: FURO1TAB62 PO (14:43)
[2017-03-31 16:00] VITALS: BP 124/73; PULSE 100; RESP 19; TEMP 96; O2SAT 96
[2017-03-31] MEDS ORDERED: WARFARIN SOD 1 MG TAB PO ONE (16:00)
[2017-03-31] MEDS: WARFARIN SOD 1 MG TAB PO SCH (17:08)
[2017-03-31] MEDS: WARFARIN SOD 2.5 MG TAB PO SCH (17:08)
[2017-03-31] MEDS: VANCOMYCIN 1,000 MG/NS 250 ML IV SCH ×2 (18:13)
[2017-03-31 20:00] VITALS: BP 133/68; PULSE 19; RESP 18; TEMP 96.2; O2SAT 96
[2017-03-31 23:37] VITALS: BP 129/56; PULSE 97; RESP 18; TEMP 96.2; O2SAT 96
[2017-04-01] MEDS: metroNIDAZOLE 500 MG INJ 100 ML IV SCH ×2 (02:35→09:14)
[2017-04-01 04:53] LABS: INTERNATIONAL NORMALIZED RATIO 1.8 RATIO; PROTHROMBIN TIME - PATIENT 19.9 SEC (9.8-11.6)
[2017-04-01 08:00] VITALS: BP 122/71; PULSE 92; RESP 18; TEMP 96.9; O2SAT 96
[2017-04-01] MEDS: FUROSEMIDE 20 MG/2 ML VIAL IV PUSH SCH (09:10)
[2017-04-01] MEDS: VANCOMYCIN 500 MG VIAL (FOR ORAL USE ONLY) PO SCH ×2 (09:10→13:42)
[2017-04-01] MEDS: METOPROLOL SUCCINATE 50 MG EXTENDED RELEASE TAB PO SCH (09:11)
[2017-04-01] MEDS: CLOPIDOGREL 75 MG TAB PO SCH (09:11)
[2017-04-01] MEDS: SODIUM CHLORIDE 0.9% FLUSH 10 ML FLUSH IV FLUSH SCH (09:11)
[2017-04-01] MEDS: ATORVASTATIN 20 MG TAB PO SCH (09:11)
--- NOTE | 2017-04-01 11:04 | HHI.PR ---
Subjective Remarks Follow-up C. difficile diarrhea/hypokalemia/acute on chronic CHF 03/30/17-patient seen and examined, diarrheal episode improving, potassium 3.4. Patient denies any shortness of breath and reports improvement of bilateral lower extremity edema 03/31/17-patient seen and examined, diarrhea resolved and patient stable. Potassium 2.8 04/01/17-patient seen and examined, stable and no diarrheal episode. Daughter by his bedside and agreed on discharge to state as patient still with some generalized weakness Objective Vitals Vital Signs Date Time Temp Pulse Resp B/P Pulse Ox O2 Delivery O2 Flow Rate FiO2 04/01/17 08:00 96.9 92 18 122/71 96 03/31/17 23:37 96.2 97 18 129/56 96 03/31/17 20:00 96.2 19 18 133/68 96 03/31/17 16:00 96.0 100 19 124/73 96 03/31/17 12:00 96.6 98 20 118/71 97 I/O 03/31/17 03/31/17 03/31/17 04/01/17 04/01/17 04/01/17 07:00 15:00 23:00 07:00 15:00 23:00 Intake Total 250 ml 522 ml 370 ml 340 ml 120 ml Output Total 300 ml 500 ml 300 ml Balance -50 ml 22 ml 370 ml 40 ml 120 ml Intake Oral 250 ml 420 ml 120 ml 240 ml 120 ml IV Total 102 ml 250 ml 100 ml Output Urine Total 300 ml 500 ml 300 ml # Voids 1 1 # Bowel Movements 0 0 0 Result Diagram: 03/30/17 0506 04/01/17 0411 Imaging Last Impressions Head CT 03/29/17 0000 Signed Impressions: Service Date/Time: Wednesday, March 29, 2017 23:15 - CONCLUSION: No acute disease. 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 No change. Rolando Long MD Chest X-Ray 03/29/17 0000 Signed Impressions: Service Date/Time: Wednesday, March 29, 2017 13:39 - CONCLUSION: Hyperinflation which can be seen with COPD. Left lower lobe density could be atelectasis or infiltrate. Rolando Long MD Objective Remarks GENERAL: NAD SKIN: Warm and dry. HEAD: Normocephalic. EYES: No scleral icterus. No injection or drainage. NECK: Supple, trachea midline. No JVD or lymphadenopathy. CARDIOVASCULAR: Regular rate and rhythm with II/ POOJA RESPIRATORY: Breath sounds equal bilaterally. No accessory muscle use. GASTROINTESTINAL: Abdomen soft, non-tender, nondistended. MUSCULOSKELETAL: No cyanosis, +trace edema BLE. BACK: Nontender without obvious deformity. No CVA tenderness. Procedures None A/P Problem List: (1) C. difficile diarrhea ICD Code: A04.7 Status: Resolved (2) Acute on chronic systolic (congestive) heart failure ICD Code: I50.23 Status: Acute (3) Hypokalemia ICD Code: E87.6 Status: Acute (4) YG (acute kidney injury) ICD Code: N17.9 Status: Resolved (5) Atrial fibrillation with RVR ICD Code: I48.91 Status: Chronic (6) Weakness generalized ICD Code: R53.1 Status: Chronic Assessment and Plan 81-year-old man with Severe complicated C. difficile diarrhea-resolved Continue IV Flagyl 500 every 8 as well as vancomycin 125 mg every 6 hour Will discharge to complete a 10-14 day course of by mouth Flagyl Acute on chronic CHF systolic Continue IV Lasix 20 mg daily Secondary to worsening renal function, will hold on AVIVA inhibitor Limited 2-D echo pending Potassium supplement Hypokalemia Treat accordingly Acute on chronic kidney disease-resolved Secondary to CHF will hold on fluid hydration and monitor BUN/creatinine Hold on all nephrotoxic drugs History of atrial fibrillation Daily INR/PT monitoring Continue Coumadin Continue beta maynor Peripheral artery disease Continue Plavix Generalized weakness Multifactorial PT consult to treat and eval Hypertension Resume lisinopril/HCTZ Continue Lopressor with holding parameters Hyperlipidemia On statin DVT prophylaxis Coumadin Rolando Tineo MD Apr 01, 2017 11:04
--- NOTE | 2017-04-01 11:08 | HHI.DS ---
Discharge Summary Admission Date Mar 29, 2017 at 15:47 Discharge Date: Apr 01, 2017 Admitting Diagnosis hypokalemia (1) C. difficile diarrhea ICD Code: A04.7 (2) Acute on chronic systolic (congestive) heart failure ICD Code: I50.23 (3) Hypokalemia ICD Code: E87.6 (4) YG (acute kidney injury) ICD Code: N17.9 (5) Atrial fibrillation with RVR ICD Code: I48.91 (6) Weakness generalized ICD Code: R53.1 Procedures None Brief History - From Admission 81-year-old -[place] male with past medical history significant for hypertension, atrial fibrillation and peripheral artery disease who was previously admitted to a local nursing facility, where patient completed a second round of a 10 day course of antibiotic for pneumonia on 03/21/17 was diagnosed on 03/26/17 with C. difficile after patient came and I will multiple episodes of foul-smelling diarrhea and was started on a ten-day course of Flagyl , which patient to the second dose this morning. However per patient's daughter the diarrhea has gotten worse with more frequent and foul-smelling episodes associated with generalized weakness. Patient has been noted to have increasing bilateral lower extremity swelling along with significant shortness of breath. He denies any chest pain, has had no febrile episode. During his stay at that local nursing facility patient was previously treated for also about her pneumonia with a ten-day course starting 02/23/17. CBC/BMP: 03/30/17 0506 04/01/17 0411 Significant Findings Laboratory Tests Test 03/29/17 03/29/17 03/29/17 03/30/17 13:00 14:25 16:45 05:06 Hemoglobin 11.3 GM/DL 10.7 GM/DL (13.0-17.0) (13.0-17.0) Hematocrit 35.7 % 33.9 % (39.0-51.0) (39.0-51.0) Mean Corpuscular Volume 74.5 FL 74.1 FL (80.0-100.0) (80.0-100.0) Mean Corpuscular Hemoglobin 23.6 PG 23.3 PG (27.0-34.0) (27.0-34.0) Mean Corpuscular Hemoglobin 31.7 % 31.4 % Concent (32.0-36.0) (32.0-36.0) Red Cell Distribution Width 19.0 % 19.0 % (11.6-17.2) (11.6-17.2) Monocytes (%) (Auto) 15.8 % 11.9 % (0.0-8.0) (0.0-8.0) Monocytes # (Auto) 1.0 TH/MM3 (0-0.9) Potassium Level 2.5 MEQ/L 3.4 MEQ/L (3.5-5.1) (3.5-5.1) Blood Urea Nitrogen 31 MG/DL (7-18) 25 MG/DL (7-18) Creatinine 1.43 MG/DL (0.60-1.30) Estimat Glomerular Filtration 57 ML/MIN (>89) 72 ML/MIN (>89) Rate B-Type Natriuretic Peptide 490 PG/ML (0-100) Albumin 2.9 GM/DL 2.5 GM/DL (3.4-5.0) (3.4-5.0) Urine Protein 30 mg/dL (NEG-TRACE) Urine Occult Blood SMALL (NEG) Urine Mucus FEW /lpf (OCC) Prothrombin Time 18.7 SEC 18.8 SEC (9.8-11.6) (9.8-11.6) Calcium Level 8.1 MG/DL (8.5-10.1) Test 03/31/17 04/01/17 05:41 04:11 Prothrombin Time 17.7 SEC 19.9 SEC (9.8-11.6) (9.8-11.6) Potassium Level 2.8 MEQ/L (3.5-5.1) Blood Urea Nitrogen 20 MG/DL (7-18) Estimat Glomerular Filtration 83 ML/MIN (>89) Rate Calcium Level 8.3 MG/DL (8.5-10.1) PE at Discharge GENERAL: NAD SKIN: Warm and dry. HEAD: Normocephalic. EYES: No scleral icterus. No injection or drainage. NECK: Supple, trachea midline. No JVD or lymphadenopathy. CARDIOVASCULAR: Regular rate and rhythm with II/ POOJA RESPIRATORY: Breath sounds equal bilaterally. No accessory muscle use. GASTROINTESTINAL: Abdomen soft, non-tender, nondistended. MUSCULOSKELETAL: No cyanosis, +trace edema BLE. BACK: Nontender without obvious deformity. No CVA tenderness. Hospital Course Patient admitted secondary to severe complicated C. difficile diarrhea for which she was started on IV Flagyl and by mouth vancomycin with significant improvement of diarrheal episode. He was also treated for acute on chronic CHF with IV diuresis. PT was consulted. Kidney function improved and acute on chronic kidney disease resolved. Patient's medications were resumed accordingly. All electrolyte abnormalities including hypokalemia and treated accordingly. She conditions improved prior to discharge and vitals remained stable. Pt Condition on Discharge: Stable Discharge Disposition: Discharge to SNF Discharge Time: > 30 minutes Discharge Instructions DIET: Follow Instructions for: Heart Healthy Diet Activities you can perform: Regular-No Restrictions Follow up Referrals: PCP Follow-up - 1 Week New Medications: Furosemide (Lasix) 20 Mg Tab 20 MG PO DAILY Prevent Heart Failure #30 Ref 0 TAB Potassium Chloride ER (Potassium Chloride ER) 20 Meq Tab 20 MEQ PO DAILY Electrolyte Replacement #30 Ref 0 TAB Continued Medications: Clopidogrel (Plavix) 75 Mg Tab 75 MG PO DAILY Blood Clot Prevention #30 Ref 0 TAB Lisinopril-Hctz (Lisinopril-Hctz) 20-25 Mg Tab 1 TAB PO DAILY Blood Pressure Management #30 Ref 0 TAB Metoprolol Succinate ER 24 HR (Metoprolol Succinate ER 24 HR) 50 Mg Tab 50 MG PO DAILY #30 Ref 0 TAB Metronidazole (Flagyl) 500 Mg Tab 500 MG PO TID C-DIFF Ref 0 TAB Rosuvastatin (Crestor) 10 Mg Tab 10 MG PO DAILY Cholesterol Management #30 Ref 0 TAB Warfarin (Coumadin) 2.5 Mg Tab 3.5 MG PO DAILY Take 1 tablet (2.5mg) with 1mg tablet for a total dose of 3.5mg Prevent Blood Clot #30 Ref 0 TAB Warfarin (Coumadin) 1 Mg Tab 3.5 MG PO DAILY Take 1 tablet (1mg) with 2.5mg tablet for a total dose of 3.5mg Prevent Blood Clot #30 Ref 0 TAB Rolando Tineo MD Apr 01, 2017 11:08
[2017-04-01 12:00] VITALS: BP 140/72; PULSE 96; RESP 18; TEMP 96.9; O2SAT 97
--- NOTE | 2017-04-01 12:21 | ECHRPT ---
Indication: CHF EF CONCLUSIONS Normal left ventricular size. Mild concentric left ventricular hypertrophy. The left ventricular systolic function is moderately reduced with an estimated ejection fraction in the range of 40-45%. There is hypokinesis with distinct regional wall motion abnormalities. Trace mitral valve regurgitation. There is trace tricuspid valve regurgitation. There is estimated mild pulmonary hypertension present (43 mmHg). There is a trivial pericardial effusion present. A small left sided pleural effusion is noted. BP: 145 / 70 HR: 98 Rhythm: Other MEASUREMENTS (Male / Female) Normal Values Technical Quality:Good 2D ECHO LV Diastolic Diameter PLAX 3.0 cm 4.2 - 5.9 / 3.9 - 5.3 cm LV Systolic Diameter PLAX 2.4 cm IVS Diastolic Thickness 1.4 cm 0.6 - 1.0 / 0.6 - 0.9 cm LVPW Diastolic Thickness 1.1 cm 0.6 - 1.0 / 0.6 - 0.9 cm LV Relative Wall Thickness 0.8 RV Internal Dim ED PLAX 2.1 cm LA Systolic Diameter LX 3.7 cm 3.0 - 4.0 / 2.7 - 3.8 cm DOPPLER TR Peak Velocity 308.0 cm/s TR Peak Gradient 37.9 mmHg FINDINGS LEFT VENTRICLE Normal left ventricular size. Mild concentric left ventricular hypertrophy. The left ventricular systolic function is moderately reduced with an estimated ejection fraction in the range of 40-45%. There ishypokinesis with distinct regional wall motion abnormalities. RIGHT VENTRICLE Normal right ventricular size and systolic function. LEFT ATRIUM The left atrial size is normal. RIGHT ATRIUM The right atrial size is normal. ATRIAL SEPTUM Normal atrial septal thickness without atrial level shunting by limited color doppler interrogation. AORTA The aortic root and proximal ascending aorta are normal in size on limited imaging. MITRAL VALVE Trace mitral valve regurgitation. AORTIC VALVE Trileaflet aortic valve. No aortic valve stenosis or regurgitation. TRICUSPID VALVE There is trace tricuspid valve regurgitation. There is estimated mild pulmonary hypertension present (43 mmHg). PULMONARY VALVE The pulmonary valve is not well visualized. VESSELS The inferior vena cava is normal in size. PERICARDIUM There is a trivial pericardial effusion present. A small left sided pleural effusion is noted. Vaibhav Cristina MD (Electronically Signed) Final Date:01 April 2017 12:20
[2017-04-01] MEDS ORDERED: WARFARIN SOD 4 MG TAB PO SCH (16:00)
[2017-04-01] MEDS ORDERED: PHARMACY ORDERED LAB ONE (17:45)
[2017-04-02] MEDS ORDERED: FUROSEMIDE 20 MG TAB PO SCH (09:00)
[2017-04-02] MEDS ORDERED: POTASSIUM CHLORIDE 10 MEQ CAP PO SCH (09:00)
--- NOTE | 2017-04-03 14:16 | PQ ---
Physician Query Response Document PATIENT: PING GOETZ : 1935 ADMIT DATE: 03/29/2017 3:47 PM DISCH DATE: 04/01/2017 3:57 PM RESPONDING PROVIDER #: Janneth QUERY TEXT: Kidney Disease, Chronic CKD Stage Chronic Kidney Disease (CKD) is documented in the Medical Record. Please specify the disease stage ( includes probable or suspected) Such as: -- Chronic kidney disease Stage 1 -- Chronic kidney disease Stage 2 -- Chronic kidney disease Stage 3 -- Chronic kidney disease Stage 4 -- Chronic kidney disease Stage 5 -- Chronic kidney disease Stage 5, requiring dialysis -- End Stage Renal Disease -- Other, please specify Stages are defined by the [employer] as follows: CKD Stage I GFR >= 90 ml / min per 1.73 m2 and persistent albuminuria CKD Stage 2 GFR between 60 and 89 with persistent albuminuria CKD Stage 3 GFR between 30 and 59 CKD Stage 4 GFR between 15 and 29 CKD Stage 5 GFR between <15 or End Stage Renal Disease The patient's Clinical Indicators include: Acute on chronic kidney disease Secondary to CHF will hold on fluid hydration and monitor BUN/creatinine Hold on all nephrotoxic drugs 03/29/17 - BUN 31, Creatinine 1.43, GFR 57 03/30/17 - BUN 25, Creatinine 1.17, GFR 72 03/31/17-BUN 20, Creatinine 1.04, GFR 83 Query created by: Isabela Nunez on 03/31/2017 8:50 AM RESPONSE TEXT: stage II chronic kidney disease Electronically signed by: Rolando Tineo MD 04/03/2017 2:12 PM
== END 2017-04-01 15:57 | DRG 371 ==
LOC: NEPE 12:16 → NEDA 15:47 → N07B 17:46
PROVIDERS: ADMIT Hospitalist; ATTEND Hospitalist
DX: A04.7 Enterocolitis due to Clostridium difficile (principal); I50.23 Acute on chronic systolic (congestive) heart failure; N17.9 Acute kidney failure, unspecified; I13.0 Hypertensive heart and chronic kidney disease with heart failure and stage 1 through stage 4 chronic kidney disease, or unspecified chronic kidney disease; I73.9 Peripheral vascular disease, unspecified; E78.5 Hyperlipidemia, unspecified; E87.6 Hypokalemia; N18.9 Chronic kidney disease, unspecified; I48.91 Unspecified atrial fibrillation; F03.90 Unspecified dementia, unspecified severity, without behavioral disturbance, psychotic disturbance, mood disturbance, and anxiety; I25.10 Atherosclerotic heart disease of native coronary artery without angina pectoris; Z79.01 Long term (current) use of anticoagulants; Z87.891 Personal history of nicotine dependence; Z79.02 Long term (current) use of antithrombotics/antiplatelets
CPT/HCPCS: 70450; 71020; 80048; 80053; 81001; 82565; 83735; 83880; 84100; 85025; 85610; 93005; 93308; J1940; J3370; J7050

== ENCOUNTER → 2017-06-16 | Outpatient (CLI) | payer MEDICARE ==
[~2017-06-16] MED LIST changes: -CEFU1TAB20 PO; +COUM1TAB PO; +COUM2.5T PO; +FURO1TAB62 PO; -LISI10TA3 PO; +LISI20TA3 PO; +METR-1 PO; +PLAV75TA29 PO; +POTA-163 PO; -WARF-18 PO
[2017-06-16 11:10] LABS: HEMATOCRIT 34.9 % (39.0-51.0); MEAN CELL VOLUME 77.8 FL (80.0-100.0); MEAN CORPUSCULAR HEMOGLOBIN 24.5 PG (27.0-34.0); MEAN CORPUSCULAR HGB CONC 31.5 % (32.0-36.0); PLATELET COUNT 236 TH/MM3 (150-450); RED BLOOD COUNT 4.49 MIL/MM3 (4.50-5.90); RED CELL DISTRIBUTION WIDTH 18.2 % (11.6-17.2); REVIEW FLAG FINAL
[2017-06-16 11:16] LABS: INTERNATIONAL NORMALIZED RATIO 2.6 RATIO; PROTHROMBIN TIME - PATIENT 29.6 SEC (9.8-11.6)
[2017-06-16 11:37] LABS: ALT (GPT) 33 U/L (12-78); ANION GAP 6 MEQ/L (5-15); AST (GOT) 33 U/L (15-37); BICARBONATE 29.3 MEQ/L (21.0-32.0); BLOOD UREA NITROGEN 41 MG/DL (7-18); CHLORIDE 108 MEQ/L (98-107); GLOMERULAR FILTRATION RATE 64 ML/MIN (>89); GLUCOSE,FASTING 130 MG/DL (74-99); POTASSIUM 4.5 MEQ/L (3.5-5.1); SODIUM (NA) 143 MEQ/L (136-145)
[2017-06-16 11:40] LABS: ALKALINE PHOSPHATASE 125 U/L (45-117); HDL CHOLESTEROL 68.5 MG/DL (40.0-60.0); LDL CHOLESTEROL 64 MG/DL (0-99); LDL CHOLESTEROL DIRECT 78 MG/DL (0-99); TOTAL BILIRUBIN ADULT 0.4 MG/DL (0.2-1.0)
[2017-06-16 13:58] LABS: HEMOGLOBIN A1a 1.4 %; HEMOGLOBIN A1b 1.1 %; HEMOGLOBIN Ao 82.3 %; HEMOGLOBIN F 1.2 %; HEMOGLOBIN LA1C 2.6 %; HEMOGLOBIN P3 6.1 %
== END ==
LOC: CLAB 10:37
PROVIDERS: ATTEND Family Medicine
DX: I50.22 Chronic systolic (congestive) heart failure (principal); E11.9 Type 2 diabetes mellitus without complications; E78.5 Hyperlipidemia, unspecified; I48.91 Unspecified atrial fibrillation; I10 Essential (primary) hypertension; Z79.01 Long term (current) use of anticoagulants; Z79.899 Other long term (current) drug therapy
CPT/HCPCS: 36415; 80053; 80061; 83036; 83721; 85027; 85610

== ENCOUNTER → 2017-07-14 | Outpatient (CLI) | payer MEDICARE ==
[2017-07-14 13:37] LABS: HEMATOCRIT 36.7 % (39.0-51.0); MEAN CELL VOLUME 77.5 FL (80.0-100.0); MEAN CORPUSCULAR HEMOGLOBIN 24.3 PG (27.0-34.0); MEAN CORPUSCULAR HGB CONC 31.4 % (32.0-36.0); PLATELET COUNT 234 TH/MM3 (150-450); RED BLOOD COUNT 4.73 MIL/MM3 (4.50-5.90); RED CELL DISTRIBUTION WIDTH 16.8 % (11.6-17.2); REVIEW FLAG FINAL; WHITE BLOOD COUNT 8.1 TH/MM3 (4.0-11.0)
[2017-07-14 14:21] LABS: ANION GAP 9 MEQ/L (5-15); AST (GOT) 30 U/L (15-37); BICARBONATE 27.5 MEQ/L (21.0-32.0); BLOOD UREA NITROGEN 19 MG/DL (7-18); CHLORIDE 108 MEQ/L (98-107); GLOMERULAR FILTRATION RATE 82 ML/MIN (>89); GLUCOSE,FASTING 92 MG/DL (74-99); POTASSIUM 4.5 MEQ/L (3.5-5.1); SODIUM (NA) 144 MEQ/L (136-145)
[2017-07-14 14:22] LABS: ALT (GPT) 26 U/L (12-78)
[2017-07-14 14:31] LABS: ALKALINE PHOSPHATASE 169 U/L (45-117); HDL CHOLESTEROL 63.9 MG/DL (40.0-60.0); LDL CHOLESTEROL 38 MG/DL (0-99); LDL CHOLESTEROL DIRECT 65 MG/DL (0-99); TOTAL BILIRUBIN ADULT 0.5 MG/DL (0.2-1.0)
[2017-07-14 17:40] LABS: HEMOGLOBIN A1a 1.3 %; HEMOGLOBIN A1b 1.1 %; HEMOGLOBIN Ao 82.2 %; HEMOGLOBIN F 1.3 %; HEMOGLOBIN LA1C 2.4 %; HEMOGLOBIN P3 6.2 %
== END ==
LOC: CLAB 13:02
PROVIDERS: ATTEND Family Medicine
DX: E11.9 Type 2 diabetes mellitus without complications (principal); R53.83 Other fatigue; E78.2 Mixed hyperlipidemia; I10 Essential (primary) hypertension; I48.91 Unspecified atrial fibrillation
CPT/HCPCS: 36415; 80053; 80061; 83036; 83721; 84443; 85027

== ENCOUNTER 2017-09-04 10:55 | Emergency (ER) | payer MEDICARE ==
[~2017-09-04 10:55] MED LIST changes: +METO1TAB9 PO; -METO50TA11 PO
[2017-09-04 11:06] VITALS: BP 136/69; PULSE 84; RESP 16; TEMP 98.1
[2017-09-04 11:11] VITALS: O2SAT 99
--- NOTE | 2017-09-04 11:50 | PD ---
HPI Chief Complaint: General Weakness Time Seen by Provider: 11:38 Travel History International Travel<30 days: No Contact w/Intl Traveler<30days: No Traveled to known affect area: No History of Present Illness HPI 81-year-old male complains of right hip pain. Patient fell yesterday. Patient denies loss of consciousness. Patient denies any headache or neck pain. Patient denies any chest pain or shortness of breath. Patient denies abdominal pain. Patient has diarrhea with 3 loose stools per day since yesterday. Patient denies any fever chills. Patient has history of C. difficile in the past. Patient states that the pain is sharp pain localized to right hip. Patient denies any pain radiation. Patient has been ambulating on lower extremity since yesterday. On a scale of 1-10 the pain is a 5. PFSH Past Medical History Hx Anticoagulant Therapy: No Atrial Fibrillation: Yes Heart Rhythm Problems: Yes (afib) Cardiovascular Problems: Yes Congestive Heart Failure: Yes Cerebrovascular Accident: Yes (tia) Coronary Artery Disease: Yes Diminished Hearing: No Hypertension: Yes Respiratory: No Renal Failure: Yes (YG) Tetanus Vaccination: > 5 Years Influenza Vaccination: No Past Surgical History Surgical History: No Previous Surgery Cardiac Surgery: Yes (CAROTID ARTERY) Other Surgery: Yes Social History Alcohol Use: No Tobacco Use: No (FORMER) Substance Use: No Allergies-Medications (Allergen,Severity, Reaction): Coded Allergies: No Known Allergies (Verified Adverse Reaction, Unknown, 09/04/17) Reported Meds & Prescriptions Reported Meds & Active Scripts Active Potassium Chloride ER (Potassium Chloride) 20 Meq Tab 20 Meq PO DAILY Lasix (Furosemide) 20 Mg Tab 20 Mg PO DAILY Reported Remeron (Mirtazapine) 15 Mg Tab 7.5 Mg PO HS Xanax (Alprazolam) 0.5 Mg Tab 0.5 Mg PO HS Coumadin (Warfarin) 5 Mg Tab 5 Mg PO DAILY Metoprolol Tartrate 50 Mg Tab 50 Mg PO DAILY Plavix (Clopidogrel Bisulfate) 75 Mg Tab 75 Mg PO DAILY Crestor (Rosuvastatin Calcium) 10 Mg Tab 10 Mg PO DAILY Review of Systems General / Constitutional: No: Fever Eyes: No: Visual changes HENT: No: Headaches Cardiovascular: No: Chest Pain or Discomfort Respiratory: No: Shortness of Breath Gastrointestinal: Positive: Diarrhea, No: Abdominal Pain Genitourinary: No: Dysuria Musculoskeletal: Positive: Pain Skin: No Rash Neurologic: No: Weakness Psychiatric: No: Depression Endocrine: No: Polydipsia Hematologic/Lymphatic: No: Easy Bruising Physical Exam Narrative GENERAL: Well-nourished, well-developed patient. SKIN: Focused skin assessment warm/dry. HEAD: Normocephalic. EYES: No scleral icterus. No injection or drainage. NECK: Supple, trachea midline. No JVD or lymphadenopathy. CARDIOVASCULAR: Regular rate and rhythm without murmurs, gallops, or rubs. RESPIRATORY: Breath sounds equal bilaterally. No accessory muscle use. GASTROINTESTINAL: Abdomen soft, non-tender, nondistended. MUSCULOSKELETAL: No cyanosis, or edema. Mild tenderness on palpation lateral aspect the right hip joint. Full range of motion the right hip. BACK: Nontender without obvious deformity. No CVA tenderness. Neurologic exam: Patient's awake and alert oriented 3. No obvious focal neurological deficit. Data Data Last Documented VS Vital Signs Date Time Temp Pulse Resp B/P (MAP) Pulse Ox O2 Delivery O2 Flow Rate FiO2 09/04/17 11:43 Room Air 09/04/17 11:11 99 09/04/17 11:06 98.1 84 16 Orders Orders Electrocardiogram (09/04/17 11:44) Complete Blood Count With Diff (09/04/17 11:44) Comprehensive Metabolic Panel (09/04/17 11:44) Prothrombin Time / Inr (Pt) (09/04/17 11:44) Act Partial Throm Time (Ptt) (09/04/17 11:44) Urinalysis - C+S If Indicated (09/04/17 11:44) Iv Access Insert/Monitor (09/04/17 11:44) Ecg Monitoring (09/04/17 11:44) Oximetry (09/04/17 11:44) Hip, Uni(Ap&Lat) W Ap Pelvis (09/04/17 11:47) Labs Laboratory Tests Test 09/04/17 12:00 White Blood Count 8.0 TH/MM3 Red Blood Count 4.40 MIL/MM3 Hemoglobin 11.3 GM/DL Hematocrit 34.1 % Mean Corpuscular Volume 77.5 FL Mean Corpuscular Hemoglobin 25.7 PG Mean Corpuscular Hemoglobin Concent 33.2 % Red Cell Distribution Width 15.3 % Platelet Count 278 TH/MM3 Mean Platelet Volume 8.2 FL Neutrophils (%) (Auto) 73.7 % Lymphocytes (%) (Auto) 19.6 % Monocytes (%) (Auto) 5.7 % Eosinophils (%) (Auto) 0.3 % Basophils (%) (Auto) 0.7 % Neutrophils # (Auto) 5.9 TH/MM3 Lymphocytes # (Auto) 1.6 TH/MM3 Monocytes # (Auto) 0.5 TH/MM3 Eosinophils # (Auto) 0.0 TH/MM3 Basophils # (Auto) 0.1 TH/MM3 CBC Comment DIFF FINAL Differential Comment Prothrombin Time 16.0 SEC Prothromb Time International Ratio 1.6 RATIO Activated Partial Thromboplast Time 29.4 SEC Blood Urea Nitrogen 36 MG/DL Creatinine 1.74 MG/DL Random Glucose 108 MG/DL Total Protein 8.6 GM/DL Albumin 3.5 GM/DL Calcium Level 9.3 MG/DL Alkaline Phosphatase 190 U/L Aspartate Amino Transf (AST/SGOT) 53 U/L Alanine Aminotransferase (ALT/SGPT) 42 U/L Total Bilirubin 0.7 MG/DL Sodium Level 144 MEQ/L Potassium Level 4.6 MEQ/L Chloride Level 111 MEQ/L Carbon Dioxide Level 22.6 MEQ/L Anion Gap 10 MEQ/L Estimat Glomerular Filtration Rate 46 ML/MIN MDM Medical Decision Making Medical Screen Exam Complete: Yes Emergency Medical Condition: Yes Interpretation(s) Last Impressions Hip and Pelvis X-Ray 09/04/17 1147 Signed Impressions: Service Date/Time: August 12:13 - CONCLUSION: 1. 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 2. No acute fracture or dislocation. 3. Mild degenerative changes involving the lower lumbar spine. Robert Chamberlain MD 1430 p.m. CBC WBC 8.0. Hemoglobin 11.3 hematocrit 34.1. MCV 77.5. 73 neutrophil. BUN 36 with a creatinine 1.74. GFR 46. AST 53. Alkaline phosphatase 190. INR 1.6. Differential Diagnosis Differential diagnosis including contusion, fracture, dislocation, gastroenteritis, C. difficile colitis. Narrative Course 81-year-old male with right hip injury. Status post fall yesterday. Patient also had diarrhea since yesterday. History of C. difficile. Diagnosis Primary Impression: Contusion of right hip Qualified Codes: S70.01XA - Contusion of right hip, initial encounter Additional Impression: Viral syndrome Patient Instructions: General Instructions Additional Instructions: Tylenol as needed for pain. Encouraged by mouth fluid. Follow-up with personal physician. Return if persistent problem or worse. Med/Other Pt SpecificInfo: Prescription(s) given Disposition: 01 DISCHARGE HOME Condition: Stable Aniket Pabon MD Sep 04, 2017 11:50
[2017-09-04] MEDS ORDERED: REME15TA PO (12:28)
[2017-09-04] MEDS ORDERED: ALPR.5 PO (12:28)
[2017-09-04] MEDS ORDERED: COUM5TAB PO (12:28)
[2017-09-04] MEDS ORDERED: METO50TA PO (12:28)
[2017-09-04 12:36] LABS: AUTOMATED NEUTROPHIL # 5.9 TH/MM3 (1.8-7.7); BASOPHIL # 0.1 TH/MM3 (0-0.2); BASOPHIL % 0.7 % (0.0-2.0); EOSINOPHIL % 0.3 % (0.0-4.0); HEMATOCRIT 34.1 % (39.0-51.0); HEMOGLOBIN 11.3 GM/DL (13.0-17.0); LYMPH % 19.6 % (9.0-44.0); LYMPHOCYTE # 1.6 TH/MM3 (1.0-4.8); MEAN CELL VOLUME 77.5 FL (80.0-100.0); MEAN CORPUSCULAR HEMOGLOBIN 25.7 PG (27.0-34.0); MEAN CORPUSCULAR HGB CONC 33.2 % (32.0-36.0); MEAN PLATELET VOLUME 8.2 FL (7.0-11.0); MONO % 5.7 % (0.0-8.0); MONOCYTE # 0.5 TH/MM3 (0-0.9); NEUT % 73.7 % (16.0-70.0); PLATELET COUNT 278 TH/MM3 (150-450); RED CELL DISTRIBUTION WIDTH 15.3 % (11.6-17.2)
--- NOTE | 2017-09-04 12:43 | RADRPT ---
EXAM DATE/TIME: 09/04/2017 12:13 [facility] COMPARISON: No previous studies available for comparison. INDICATIONS : Right hip pain, fall. MEDICAL HISTORY : Congestive heart failure. Cardiovascular disease Hypertension.CVA. SURGICAL HISTORY : None. ENCOUNTER: Initial ACUITY: 1 day PAIN SCORE: 5/10 LOCATION: Right proximal hip FINDINGS: Mild to moderate osteoarthritis is noted involving the hip joints bilaterally. There is no acute frac ture or dislocation. Mild degenerative changes are noted involving the lower lumbar spine. Metallic s tent is noted within the left external iliac artery. CONCLUSION: 1. 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 2. No acute fracture or dislocation. 3. Mild degenerative changes involving the lower lumbar spine. Robert Chamberlain MD on September 04, 2017 at 12:40 Board Certified Radiologist. This report was verified electronically.
[2017-09-04 12:47] LABS: INTERNATIONAL NORMALIZED RATIO 1.6 RATIO
[2017-09-04 12:53] LABS: ALBUMIN 3.5 GM/DL (3.4-5.0); ALT (GPT) 42 U/L (12-78); AST (GOT) 53 U/L (15-37); BICARBONATE 22.6 MEQ/L (21.0-32.0); BLOOD UREA NITROGEN 36 MG/DL (7-18); CALCIUM 9.3 MG/DL (8.5-10.1); CHLORIDE 111 MEQ/L (98-107); CREATININE 1.74 MG/DL (0.60-1.30); GLOMERULAR FILTRATION RATE 46 ML/MIN (>89); GLUCOSE,RANDOM 108 MG/DL (74-106); SODIUM (NA) 144 MEQ/L (136-145)
[2017-09-04 12:55] LABS: ALKALINE PHOSPHATASE 190 U/L (45-117); TOTAL BILIRUBIN ADULT 0.7 MG/DL (0.2-1.0); TOTAL PROTEIN 8.6 GM/DL (6.4-8.2)
--- NOTE | 2017-09-06 12:25 | EKG ---
Date Performed: 09/04/2017 Time Performed: 11:57:56 PTAGE: 81 years EKG: Sinus rhythm WITH 2ND DEGREE AV BLOCK, MOBITZ TYPE II WITH OCCASIONAL ECTOPIC PREMATURE COMPLEXES LEFT ANTERIOR F ASCICULAR BLOCK MODERATE ST DEPRESSION ABNORMAL ECG PREVIOUS TRACING : 03/29/2017 15.42 DOCTOR: Barbara Epps Interpretating Date/Time 09/06/2017 12:24:12
== END 2017-09-04 14:53 | disposition home or self-care (01) ==
LOC: NEPC 10:55
DX: S70.01XA Contusion of right hip, initial encounter (principal); B34.9 Viral infection, unspecified; I11.0 Hypertensive heart disease with heart failure; I50.9 Heart failure, unspecified; I48.91 Unspecified atrial fibrillation; I25.10 Atherosclerotic heart disease of native coronary artery without angina pectoris; W19.XXXA Unspecified fall, initial encounter; Z79.01 Long term (current) use of anticoagulants; Z79.02 Long term (current) use of antithrombotics/antiplatelets; Z87.891 Personal history of nicotine dependence
CPT/HCPCS: 73502; 80053; 85025; 85610; 85730; 93005; 99285

== ENCOUNTER 2017-09-11 09:49 | Inpatient (IN) | payer MEDICARE ==
[2017-09-11] VITALS (43 sets, daily range): BP systolic 45–176; BP diastolic 20–87; PULSE 84–160; RESP 13–34; TEMP 95.3–100; O2SAT 0–100
[~2017-09-11] VITALS: Ht 172.7 cm; Wt 73.0 kg
[~2017-09-11 09:49] MED LIST changes: +ALPR.5 PO; -COUM1TAB PO; -COUM2.5T PO; +COUM5TAB PO; -LISI20TA3 PO; -METO1TAB9 PO; +METO50TA PO; -METR-1 PO; +REME15TA PO; -UMEC1AER INH
[2017-09-11] MEDS ORDERED: SODIUM CHLOR 0.9% 1000 ML INJ 100 ML IV ONE (09:55)
[2017-09-11] MEDS ORDERED: SODIUM CHLOR 0.9% 1000 ML INJ 1,000 ML IV ONE ×4 (09:55→17:15)
--- NOTE | 2017-09-11 10:27 | PD ---
HPI . found down Chief Complaint: Altered Mental Status Time Seen by Provider: 09:55 Travel History International Travel<30 days: No Contact w/Intl Traveler<30days: No Traveled to known affect area: No History of Present Illness HPI This patient presents to us by EVAC after being found down in his home this morning. His last seen over 24 hours ago. EVAC reports that they found him laying on the bedroom floor in the left lateral decubitus position with emesis beside him. They did not note urine or stool. They did not see any obvious injuries to the patient. None of the furniture in the room had been disturbed. They found a bottle of Xanax but the bottle does not appear to be missing any pills. The patient reportedly had a poor respiratory effort on their arrival so he was intubated by EVAC. An IV was started and he was given some IV fluids en route. EVAC reports a history of dementia per the family. 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 Family is now here and reports that they actually spoke with him at 2 AM and he was acting normally. Another family member saw him in the bed early this morning. PFSH Past Medical History Hx Anticoagulant Therapy: No Atrial Fibrillation: Yes Heart Rhythm Problems: Yes (afib) Cardiovascular Problems: Yes Congestive Heart Failure: Yes Cerebrovascular Accident: Yes (tia) Coronary Artery Disease: Yes Diminished Hearing: No Hypertension: Yes Respiratory: No Renal Failure: Yes (YG) Past Surgical History Cardiac Surgery: Yes (CAROTID ARTERY) Other Surgery: Yes Social History Alcohol Use: No Tobacco Use: No (FORMER) Substance Use: No Allergies-Medications (Allergen,Severity, Reaction): Coded Allergies: No Known Allergies (Verified Allergy, Unknown, 09/11/17) Reported Meds & Prescriptions Reported Meds & Active Scripts Active Potassium Chloride ER (Potassium Chloride) 20 Meq Tab 20 Meq PO DAILY Lasix (Furosemide) 20 Mg Tab 20 Mg PO DAILY Reported Remeron (Mirtazapine) 15 Mg Tab 7.5 Mg PO HS Xanax (Alprazolam) 0.5 Mg Tab 0.5 Mg PO HS Coumadin (Warfarin) 5 Mg Tab 5 Mg PO DAILY Metoprolol Tartrate 50 Mg Tab 50 Mg PO DAILY Plavix (Clopidogrel Bisulfate) 75 Mg Tab 75 Mg PO DAILY Crestor (Rosuvastatin Calcium) 10 Mg Tab 10 Mg PO DAILY Review of Systems ROS Limitations: Intubated Physical Exam Narrative GENERAL: Patient is intubated. SKIN: warm/dry. Poor turgor. HEAD: Normocephalic. Atraumatic. EYES: Pupils equal and round. No scleral icterus. No injection or drainage. ENT: No nasal bleeding or discharge. Mucous membranes pink and moist. NECK: Trachea midline. CARDIOVASCULAR: Irregularly irregular rhythm with a rate of 500. RESPIRATORY: He is breathing spontaneously. His breath sounds are deep and full. I have asked the respiratory therapist place him on assist control. She reports that she is able to place him on CPAP but that the ventilator will not allow assist control. GASTROINTESTINAL: Abdomen soft. Bowel sounds present. Nondistended. : Normal male. MUSCULOSKELETAL: No obvious deformities. NEUROLOGICAL: Intubated. Spontaneous respirations. We have noted movement of all 4 extremities. PSYCHIATRIC: Unable to assess. Data Data Last Documented VS Vital Signs Date Time Temp Pulse Resp B/P (MAP) Pulse Ox O2 Delivery O2 Flow Rate FiO2 09/11/17 12:38 100 45/20 (28) 09/11/17 12:35 95.3 09/11/17 12:05 21 96 09/11/17 11:42 Auto-Vent 09/11/17 09:50 100 Orders Orders Sepsis Workup Initiated (09/11/17 ) Electrocardiogram (09/11/17 09:55) Complete Blood Count With Diff (09/11/17 09:55) Comprehensive Metabolic Panel (09/11/17 09:55) Lactic Acid Sepsis Protocol (09/11/17 09:55) Magnesium (Mg) (09/11/17 09:55) Ckmb (Isoenzyme) Profile (09/11/17 09:55) Troponin I (09/11/17 09:55) Urinalysis - C+S If Indicated (09/11/17 09:55) Blood Culture (09/11/17 09:55) Chest, Single Ap (09/11/17 09:55) Arterial Blood Gas (Abg) (09/11/17 09:55) Ecg Monitoring (09/11/17 09:55) Iv Access Insert/Monitor (09/11/17 09:55) Oximetry (09/11/17 09:55) Oxygen Administration (09/11/17 09:55) Urinary Catheter Insert/Apply (09/11/17 09:55) Ct Brain W/O Iv Contrast(Rout) (09/11/17 09:55) Sodium Chlor 0.9% 1000 Ml Inj (Ns 1000 M (09/11/17 09:55) Sodium Chlor 0.9% 1000 Ml Inj (Ns 1000 M (09/11/17 09:55) Sodium Chlor 0.9% 1000 Ml Inj (Ns 1000 M (09/11/17 09:55) Neurological Rass Scale Q30MX2,Q2HX4,Q4H (09/11/17 10:16) Fentanyl Inj (Fentanyl Inj) (09/11/17 10:30) Fentanyl Drip (Fentanyl Drip) (09/11/17 10:30) ^ Infusion (09/11/17 ) Norepinephrine-Dextrose Drip (Levophed-D (09/11/17 10:30) Terbutaline Inj (Brethine Inj) (09/11/17 10:30) Lactic Acid Sepsis Protocol (09/11/17 10:27) Chest, Single Ap (09/11/17 10:40) Ceftriaxone Inj (Rocephin Inj) (09/11/17 10:45) Azithromycin Inj (Zithromax Inj) (09/11/17 10:45) Arterial Blood Gas (Abg) (09/11/17 ) CKMB (09/11/17 10:20) CKMB% (09/11/17 10:20) Diltiazem Inj (Cardizem Inj) (09/11/17 11:45) Sodium Chloride 0.9% Flush (Ns Flush) (09/11/17 11:45) Diltiazem Inj (Cardizem Inj) (09/11/17 12:15) Diltiazem Inj (Cardizem Inj) (09/11/17 12:15) Labs Laboratory Tests Test 09/11/17 09:55 09/11/17 10:20 09/11/17 10:27 09/11/17 10:45 Blood Gas Puncture Site RT RADIAL RT RADIAL Blood Gas Patient Temperature 98.6 98.6 Blood Gas HCO3 16 mmol/L 12 mmol/L Blood Gas Base Excess -8.7 mmol/L -16.1 mmol/L Blood Gas Oxygen Saturation 98 % 71 % Arterial Blood pH 7.35 7.09 Arterial Blood Partial Pressure CO2 30 mmHg 41 mmHg Arterial Blood Partial Pressure O2 216 mmHG 59 mmHG Arterial Blood Oxygen Content 13.0 Vol % 10.8 Vol % Arterial Blood Carboxyhemoglobin 1.1 % 0.5 % Arterial Blood Methemoglobin 0.3 % 0.6 % Blood Gas Hemoglobin 9.0 G/DL 10.8 G/DL Oxygen Delivery Device VENTILATOR VENTILATOR Blood Gas Ventilator Setting Blood Gas Inspired Oxygen 100 % 60 % White Blood Count 12.5 TH/MM3 Red Blood Count 5.38 MIL/MM3 Hemoglobin 12.7 GM/DL Hematocrit 42.0 % Mean Corpuscular Volume 78.0 FL Mean Corpuscular Hemoglobin 23.7 PG Mean Corpuscular Hemoglobin Concent 30.3 % Red Cell Distribution Width 15.9 % Platelet Count 318 TH/MM3 Mean Platelet Volume 7.8 FL Neutrophils (%) (Auto) 71.9 % Lymphocytes (%) (Auto) 18.8 % Monocytes (%) (Auto) 8.8 % Eosinophils (%) (Auto) 0.0 % Basophils (%) (Auto) 0.5 % Neutrophils # (Auto) 8.9 TH/MM3 Lymphocytes # (Auto) 2.3 TH/MM3 Monocytes # (Auto) 1.1 TH/MM3 Eosinophils # (Auto) 0.0 TH/MM3 Basophils # (Auto) 0.1 TH/MM3 CBC Comment DIFF FINAL Differential Comment Blood Urea Nitrogen 24 MG/DL Creatinine 1.55 MG/DL Random Glucose 132 MG/DL Total Protein 8.0 GM/DL Albumin 2.9 GM/DL Calcium Level 8.5 MG/DL Magnesium Level 2.1 MG/DL Alkaline Phosphatase 158 U/L Aspartate Amino Transf (AST/SGOT) 93 U/L Alanine Aminotransferase (ALT/SGPT) 26 U/L Total Bilirubin 0.7 MG/DL Sodium Level 144 MEQ/L Potassium Level 5.0 MEQ/L Chloride Level 110 MEQ/L Carbon Dioxide Level 19.2 MEQ/L Anion Gap 15 MEQ/L Estimat Glomerular Filtration Rate 52 ML/MIN Lactic Acid Level 8.6 mmol/L Total Creatine Kinase 2129 U/L Creatine Kinase MB 40.9 NG/ML Creatine Kinase MB % 1.9 % Troponin I 4.50 NG/ML Urine Color YELLOW Urine Turbidity CLEAR Urine pH 5.5 Urine Specific [place] 1.024 Urine Protein 100 mg/dL Urine Glucose (UA) NEG mg/dL Urine Ketones NEG mg/dL Urine Occult Blood SMALL Urine Nitrite NEG Urine Bilirubin NEG Urine Urobilinogen LESS THAN 2.0 MG/DL Urine Leukocyte Esterase NEG Urine RBC 1 /hpf Urine WBC 1 /hpf Urine Squamous Epithelial Cells 1 /hpf Urine Mucus FEW /lpf Microscopic Urinalysis Comment CATH-CULT NOT IND MDM Medical Decision Making Medical Screen Exam Complete: Yes Emergency Medical Condition: Yes Medical Record Reviewed: Yes (medical history includes dementia, AF, CHF, TIA, CAD, HTN.) Interpretation(s) EKG shows atrial fibrillation with PVCs. No acute ischemic change. Differential Diagnosis Differential diagnosis of altered mental status includes but is not limited to infection, electrolyte abnormality, neurological event, intoxication Narrative Course Vital Signs Date Time Temp Pulse Resp B/P (MAP) Pulse Ox O2 Delivery O2 Flow Rate FiO2 09/11/17 09:54 103 20 96/63 (74) 09/11/17 09:50 100 100 Blood pressure is trending downward. He is receiving 3 L of fluid wide open. Pressors will be considered if his blood pressure does not improve. Septic workup is in progress. CT of his head is also pending. CK has been ordered to rule out rhabdomyolysis. His blood pressure did not quickly rebound. A central line was inserted and Levophed was started. Fluid resuscitation continues. I looked at his initial chest x-ray on the x-ray machine. He has a left-sided pulmonary infiltrate. Empiric antibodies for pneumonia will be ordered. [id number] The patient's heart rate has jumped to about 160-170. He has an underlying atrial fibrillation rhythm. The HR spontaneously dropped back to about 90 a few minutes later. Last Impressions Chest X-Ray 09/11/17 1040 Signed Impressions: Service Date/Time: August 10:44 - CONCLUSION: 1. Stable ETT. 2. Right subclavian central line in good position without pneumothorax. 3. No significant interval change with continued diffuse airspace disease throughout the left upper to mid lung zones and right perihilar mid to upper lung zones. Sergio Norris MD Chest X-Ray 09/11/17 0955 Signed Impressions: Service Date/Time: August 10:14 - CONCLUSION: Significant infiltrate throughout the left lung new since January. ET tube in good position. Chacorta Gallagher MD The plain films were independently viewed by me. CBC & BMP Diagram 09/11/17 10:20 Total Protein 8.0 #, Albumin 2.9 L, Calcium Level 8.5, Magnesium Level 2.1, Alkaline Phosphatase 158 H, Aspartate Amino Transf (AST/SGOT) 93 H, Alanine Aminotransferase (ALT/SGPT) 26, Total Bilirubin 0.7 ABG Test 09/11/17 09:55 09/11/17 10:45 Arterial Blood Carboxyhemoglobin 1.1 % 0.5 % Arterial Blood Methemoglobin 0.3 % 0.6 % Arterial Blood Oxygen Content 13.0 Vol % 10.8 Vol % L Arterial Blood Partial Pressure CO2 30 mmHg L 41 mmHg Arterial Blood Partial Pressure O2 216 mmHG H 59 mmHG *L Arterial Blood pH 7.35 L 7.09 *L Blood Gas Base Excess -8.7 mmol/L L -16.1 mmol/L L Blood Gas HCO3 16 mmol/L *L 12 mmol/L *L Blood Gas Hemoglobin 9.0 G/DL L 10.8 G/DL L Blood Gas Inspired Oxygen 100 % 60 % Blood Gas Oxygen Saturation 98 % 71 % *L Blood Gas Ventilator Setting Oxygen Delivery Device VENTILATOR VENTILATOR LA 8.6 CK 2129. trop 4.5 Critical Care Narrative Aggregate critical care time was 45 minutes. Time to perform other separately billable procedures was not included in the critical care time. My time did not include minutes spent treating any other patients simultaneously or on activities that did not directly contribute to the patient's treatment. The services I provided to this patient were to treat and/or prevent clinically significant deterioration due to septic shock I provided critical care services requiring my management, as noted below: Chart data review, documentation time, medication orders and management, vital sign assessments/reviewing monitor data, ordering and reviewing lab tests, ordering and interpreting/reviewing x-rays and diagnostic studies, care of the patient and discussion of the patient with the admitting physicians Procedures Procedure Narrative CENTRAL VENOUS LINE: The site was prepped with ChloraPrep and sterilely draped. The deep vein was cannulated using normal Seldinger technique. A [-] lumen central line was placed in the right subclavian vein and secured with simple interrupted suture. The site was sterilely dressed. The patient tolerated the procedure well. Sepsis Criteria SIRS Criteria (2 or more): Heart rate over 90, WBC > 22909, < 4000 or > 10% bands Sepsis Criteria (SIRS+source): Infect source susp/known Severe Sepsis (+one): Hypotension, Hypoperfusion Septic Shock Criteria: Lactic acid >=4 Criteria Outcome: Meets SIRS criteria, Meets sepsis criteria, Meets severe sepsis criteria, Meets septic shock criteria Physician Communication Physician Communication Dr. Jack will admit to [facility]. Diagnosis Primary Impression: Septic shock Additional Impression: Pneumonia Qualified Codes: J18.9 - Pneumonia, unspecified organism Admitting Information Admitting Physician Requests: Admit Condition: Serious Meg Lynch MD Sep 11, 2017 10:26
[2017-09-11] MEDS ORDERED: fentaNYL DRIP 250 ML IV PRN (10:30)
[2017-09-11] MEDS ORDERED: TERBUTALINE INJ 1 MG/ML AMP SQ PRN ×2 (10:30→13:45)
[2017-09-11 10:40] LABS: AUTOMATED NEUTROPHIL # 8.9 TH/MM3 (1.8-7.7); BASOPHIL # 0.1 TH/MM3 (0-0.2); BASOPHIL % 0.5 % (0.0-2.0); HEMO FLAGS DIFF FINAL; LYMPH % 18.8 % (9.0-44.0); LYMPHOCYTE # 2.3 TH/MM3 (1.0-4.8); MEAN CORPUSCULAR HEMOGLOBIN 23.7 PG (27.0-34.0); MEAN CORPUSCULAR HGB CONC 30.3 % (32.0-36.0); MONO % 8.8 % (0.0-8.0); NEUT % 71.9 % (16.0-70.0); PLATELET COUNT 318 TH/MM3 (150-450); RED BLOOD COUNT 5.38 MIL/MM3 (4.50-5.90); RED CELL DISTRIBUTION WIDTH 15.9 % (11.6-17.2); WHITE BLOOD COUNT 12.5 TH/MM3 (4.0-11.0)
[2017-09-11 10:45] LABS: BLOOD, URINE SMALL (NEG); GLUCOSE,URINE NEG (NEG); KETONE, URINE NEG (NEG); MUCUS URINE FEW /lpf (OCC); NITRITE,URINE NEG (NEG); PH, URINE 5.5 (5.0-8.5); SQUAMOUS EPITHELIAL CELL URINE 1 /hpf (0-5); URINE COLOR YELLOW (YELLW/STRAW)
[2017-09-11] MEDS ORDERED: AZITHROMYCIN INJ 500 MG in SODIUM CHLOR 0.9% 250 ML INJ 250 ML IV ONE (10:45)
[2017-09-11] MEDS ORDERED: cefTRIAXone INJ 2,000 MG in SODIUM CHLORIDE 0.9% INJ 100 ML IV ONE (10:45)
[2017-09-11 10:46] LABS: BLOOD GAS BASE EXCESS -8.7 mmol/L (-2-2); BLOOD GAS CARBOXYHEMOGLOBIN 1.1 % (0-4); BLOOD GAS HCO3 16 mmol/L (22-26); BLOOD GAS METHEMOGLOBIN 0.3 % (0-2); BLOOD GAS O2 HGB SATURATION 98 % (90-100); BLOOD GAS PCO2 30 mmHg (38-42); BLOOD GAS PO2 216 mmHG (61-120); TEMP CORR TO 98.6
[2017-09-11 10:46] LABS: COMMENT (UR) CATH-CULT NOT IND; CULTURE IF INDICATED CATH CULTURE NOT IND
[2017-09-11 10:47] LABS: CRITICAL VALUE YES; DRAW SITE RT RADIAL; FIO2 100 %; NUMBER OF ARTERIAL PUNCTURES 1; OXYGEN DEVICE VENTILATOR; STAT YES; ULNAR PULSE PRESENT
--- NOTE | 2017-09-11 10:55 | RADRPT ---
EXAM DATE/TIME: 09/11/2017 10:14 [facility] COMPARISON: CHEST SINGLE AP, February 14, 2017, 17:02. INDICATIONS : Post intubation. MEDICAL HISTORY : Hypertension. Congestive heart failure. A-fib. SURGICAL HISTORY : None. ENCOUNTER: Initial ACUITY: 1 day PAIN SCORE: Non-responsive. LOCATION: Bilateral chest FINDINGS: A single view of the chest demonstrates the endotracheal tube in good position. There is a significan t infiltrate throughout the left lung. Marked atherosclerotic disease of aorta. No visible pneumothor ax.. The cardiomediastinal contours are unremarkable. Osseous structures are intact. CONCLUSION: Significant infiltrate throughout the left lung new since January. ET tube in good position. Chacorta Gallagher MD on September 11, 2017 at 10:52 Board Certified Radiologist. This report was verified electronically.
[2017-09-11] MEDS: NOREPINEPHRINE-DEXTROSE DRIP 250 ML IV PRN ×4 (11:03→22:11)
--- NOTE | 2017-09-11 11:10 | RADRPT ---
EXAM DATE/TIME: 09/11/2017 10:44 [facility] COMPARISON: CHEST SINGLE AP, September 11, 2017, 10:14. INDICATIONS : Central line placement. MEDICAL HISTORY : Congestive hearrt failure. Cardiovascular disease Hypertension.CVA. SURGICAL HISTORY : None. ENCOUNTER: Initial ACUITY: 1 day PAIN SCORE: Non-responsive. LOCATION: Bilateral chest FINDINGS: Stable ETT. Interval placement of right subclavian central line with tip in the very proximal right a trium. Redemonstration of patchy airspace disease in the left upper and mid lung zones and right jose francisco hilar right upper and midlung zones. Cardiomediastinal contours are stable. Remainder of exam is unch anged. CONCLUSION: 1. Stable ETT. 2. Right subclavian central line in good position without pneumothorax. 3. No significant interval change with continued diffuse airspace disease throughout the left upper t o mid lung zones and right perihilar mid to upper lung zones. Sergio Norris MD on September 11, 2017 at 11:05 Board Certified Radiologist. This report was verified electronically.
[2017-09-11 11:20] LABS: ALKALINE PHOSPHATASE 158 U/L (45-117); ALT (GPT) 26 U/L (12-78); ANION GAP 15 MEQ/L (5-15); BICARBONATE 19.2 MEQ/L (21.0-32.0); BLOOD UREA NITROGEN 24 MG/DL (7-18); CHLORIDE 110 MEQ/L (98-107); GLOMERULAR FILTRATION RATE 52 ML/MIN (>89); SODIUM (NA) 144 MEQ/L (136-145); TOTAL BILIRUBIN ADULT 0.7 MG/DL (0.2-1.0)
[2017-09-11 11:28] LABS: AST (GOT) 93 U/L (15-37); CREATINE KINASE 2129 U/L (39-308); MAGNESIUM 2.1 MG/DL (1.5-2.5)
[2017-09-11 11:44] LABS: CKMB 40.9 NG/ML (0.5-3.6)
[2017-09-11] MEDS ORDERED: SODIUM CHLORIDE 0.9% FLUSH 10 ML FLUSH IV FLUSH PRN (11:45)
[2017-09-11] MEDS ORDERED: DILTIAZEM HCL 25 MG/5 ML VIAL IV PUSH ONE (11:45)
[2017-09-11] MEDS ORDERED: DILTIAZEM HCL 50 MG/10 ML VIAL IV PUSH ONE ×2 (12:15)
[2017-09-11 12:32] LABS: LACTIC ACID GHOST NOT REPORTABLE
[2017-09-11 12:56] LABS: BLOOD GAS BASE EXCESS -16.1 mmol/L (-2-2); BLOOD GAS CARBOXYHEMOGLOBIN 0.5 % (0-4); BLOOD GAS HCO3 12 mmol/L (22-26); BLOOD GAS METHEMOGLOBIN 0.6 % (0-2); BLOOD GAS O2 HGB SATURATION 71 % (90-100); BLOOD GAS OXYGEN CONTENT 10.8 Vol % (12.0-20.0); BLOOD GAS PCO2 41 mmHg (38-42); BLOOD GAS PO2 59 mmHG (61-120); BLOOD GAS TOTAL HGB 10.8 G/DL (12.0-16.0); TEMP CORR TO 98.6
[2017-09-11 12:57] LABS: CRITICAL VALUE YES; DRAW SITE RT RADIAL; NUMBER OF ARTERIAL PUNCTURES 1; OXYGEN DEVICE VENTILATOR; ULNAR PULSE PRESENT
[2017-09-11 12:58] LABS: FIO2 60 %; STAT YES
[2017-09-11] MEDS: RESP: ALBUTEROL 2.5 MG/IPRATROPIUM 0.5 MG NEB (SCH) INH ×3 (13:00→20:37)
[2017-09-11] MEDS ORDERED: FAMOTIDINE 20 MG TAB PO SCH (13:00)
[2017-09-11] MEDS ORDERED: MISCELLANEOUS NURSING INFORMATION XX SCH (13:00)
[2017-09-11] MEDS ORDERED: CHLORHEXIDINE GLUCONATE 2 % 1 PACK (2 CLOTHS) TOP PRN (13:00)
[2017-09-11] MEDS ORDERED: FAMOTIDINE 20 MG/2 ML VIAL IV PUSH SCH (13:00)
[2017-09-11] MEDS ORDERED: GLUCAGON 1 MG/ML VIAL OTHER PRN (13:15)
[2017-09-11] MEDS ORDERED: DEXTROSE 50% IN WATER 50 ML VIAL(D50) IV PUSH PRN (13:15)
[2017-09-11] MEDS ORDERED: Vancomycin Consult Pharmacy 1 EA OTHER SCH (13:15)
[2017-09-11] MEDS: HYDROCORTISONE SOD SUCCINATE 100 MG VIAL IV PUSH SCH ×3 (13:47→23:09)
[2017-09-11] MEDS ORDERED: PIPERACIL-TAZO 3.375 GM PREMIX 50 ML IV SCH (14:00)
[2017-09-11] MEDS ORDERED: DEXT 5%-NACL 0.9% 1000 ML INJ 1,000 ML IV SCH (14:00)
[2017-09-11] MEDS ORDERED: VANCOMYCIN 1,000 MG/NS 250 ML IV SCH ×2 (14:00)
[2017-09-11] MEDS: INSULIN NovoLIN REGULAR SUPPLEMENTAL SCALE SQ SCH ×3 (14:00→22:00)
[2017-09-11] MEDS ORDERED: ASPIRIN 325 MG TAB PO ONE (14:00)
[2017-09-11] MEDS ORDERED: SODIUM BICARBONATE 8.4% INJ 50 MEQ/50 ML SYR IV PUSH ONE (14:00)
--- NOTE | 2017-09-11 14:27 | RADRPT ---
EXAM DATE/TIME: 09/11/2017 14:14 [facility] COMPARISON: CT BRAIN W/O CONTRAST, March 29, 2017, 23:15. INDICATIONS : Altered mental status. RADIATION DOSE: 53.85 CTDIvol (mGy) MEDICAL HISTORY : Non-responsive. SURGICAL HISTORY : Non-responsive. ENCOUNTER: Initial ACUITY: 1 day PAIN SCALE: Non-responsive LOCATION: cranial TECHNIQUE: Multiple contiguous axial images were obtained of the head. Using automated exposure control and adj ustment of the mA and/or kV according to patient size, radiation dose was kept as low as reasonably a chievable to obtain optimal diagnostic quality images. DICOM format image data is available electro nically for review and comparison. FINDINGS: CEREBRUM: The sulci are not as prominent as they were in March raise the possibility of cerebral edema . The ve ntricles are normal for age. No evidence of midline shift, mass lesion, hemorrhage or acute infarcti on. No extra-axial fluid collections are seen. POSTERIOR FOSSA: The cerebellum and brainstem are intact. The 4th ventricle is midline. The cerebellopontine angle i s unremarkable. EXTRACRANIAL: The visualized portion of the orbits is intact. There is been right cataract surgery. Endotracheal tu be in place with extensive fluid in the naso-pharynx SKULL: The calvaria is intact. No evidence of skull fracture. CONCLUSION: No evidence of hemorrhage. Some motion making it difficult to evaluate the schaefer-white differentiation . The sulci are not as prominent as they were in March raise the possibility of intracranial edema Chacorta Gallagher MD on September 11, 2017 at 14:23 Board Certified Radiologist. This report was verified electronically.
--- NOTE | 2017-09-11 14:47 | RADRPT ---
EXAM DATE/TIME: 09/11/2017 14:20 CORRE[place] Corrected on: September 12, 2017; Added Medical history, Surgical history, encounter, acuity, pain sca le, and location. [facility] COMPARISON: No previous studies available for comparison. INDICATIONS : lung infiltrates, sob RADIATION DOSE: CTDIvol (mGy) MEDICAL HISTORY : Non-responsive. SURGICAL HISTORY : Non-responsive. ENCOUNTER: Initial ACUITY: 1 day PAIN SCALE: Non-responsive. LOCATION: chest TECHNIQUE: Volumetric scanning of the chest was performed. Using automated exposure control and adjustment of t he mA and/or kV according to patient size, radiation dose was kept as low as reasonably achievable to obtain optimal diagnostic quality images. DICOM format image data is available electronically for r eview and comparison. Follow-up recommendations for detected pulmonary nodules are based at a minimum on nodule size and pa tient risk factors according to Fleischner Society Guidelines. FINDINGS: LUNGS: There is a combination of airspace disease and underlying interstitial disease throughout the lungs d iffusely with minimal sparing of the anterior right upper lobe and the periphery of the lingula. The rest of lungs are involved. There are dense areas of consolidation in the right lower lobe in the lef t lower lobe posteriorly. There is extensive consolidation in the right middle lobe. I don't see any endobronchial mass. The endotracheal tube is in good position. PLEURAE: There is no pleural thickening. There is a moderate sized pleural effusion. MEDIASTINUM: The heart and great vessels demonstrate no acute abnormality. There is no mediastinal or hilar lymph adenopathy. Dense coronary atherosclerotic disease AXILLAE: Within normal limits. No lymphadenopathy. MUSCULOSKELETAL: Within normal limits for patient age. MISCELLANEOUS: The visualized upper abdominal organs demonstrate no acute abnormality. CONCLUSION: Significant airspace disease in the dependent portion of both lungs with very minimal normal lung ant eriorly. The combination of ground glass infiltrate in dense areas of consolidation. The dependent di stribution certainly aspiration is within the differential. Small right pleural effusion. Tubes and catheters in good position. Dense coronary atherosclerotic disease Chacorta Gallagher MD on September 11, 2017 at 14:42 Board Certified Radiologist. This report was verified electronically.
[2017-09-11] MEDS: PHENYLEPHRINE INJ 40 MG in DEXTROSE 5% IN WATE 500 ML INJ 496 ML IV PRN ×4 (15:00→19:49)
--- NOTE | 2017-09-11 15:03 | RADRPT ---
EXAM DATE/TIME: 09/11/2017 14:20 [facility] COMPARISON: CT THORAX W/O CONTRAST, September 11, 2017, 14:20. INDICATIONS : Septic shock. Lactic acidemia. ORAL CONTRAST: No oral contrast ingested. RADIATION DOSE: 8.40 CTDIvol (mGy) ; Combined studies - Thorax/Abdomen/Pelvis MEDICAL HISTORY : Non-responsive. SURGICAL HISTORY : Non-responsive. ENCOUNTER: Initial ACUITY: 1 day PAIN SCALE: Non-responsive LOCATION: abdomen TECHNIQUE: Volumetric scanning of the abdomen and pelvis was performed. Using automated exposure control and ad justment of the mA and/or kV according to patient size, radiation dose was kept as low as reasonably achievable to obtain optimal diagnostic quality images. DICOM format image data is available electro nically for review and comparison. FINDINGS: LOWER LUNGS: Dense infiltrate in both lower lung coe. Moderate right pleural effusion. LIVER: Homogeneous density without lesion. There is no dilation of the biliary tree. No calcified gallston es. SPLEEN: Normal size without lesion. PANCREAS: Within normal limits. KIDNEYS: Normal in size and shape. There is no mass, stone, or hydronephrosis other than large bilateral cyst s right greater than left. ADRENAL GLANDS: Within normal limits. VASCULAR: Dense atherosclerotic disease. BOWEL/MESENTERY: The stomach, small bowel, and colon demonstrate no acute abnormality. There is no free intraperitone al air or fluid. ABDOMINAL WALL: Within normal limits. RETROPERITONEUM: There is no lymphadenopathy. BLADDER: No wall thickening or mass. Trace amount of free fluid in the pelvis REPRODUCTIVE: Within normal limits. INGUINAL: There is no lymphadenopathy or hernia. Small amount of fluid in both inguinal canals right greater le ft MUSCULOSKELETAL: Within normal limits for patient age. CONCLUSION: Dense infiltrate in both lung bases with this moderate right pleural effusion. Bilateral renal cysts. Dense atherosclerotic disease. Pearson catheter in good position. Small amount of fluid in both inguin al canals. No evidence of bowel obstruction. Chacorta Gallagher MD on September 11, 2017 at 14:58 Board Certified Radiologist. This report was verified electronically.
--- NOTE | 2017-09-11 15:42 | EKG ---
Date Performed: 09/11/2017 Time Performed: 10:01:03 PTAGE: 81 years EKG: ATRIAL FIBRILLATION WITH ABERRANT CONDUCTION OR VENTRICULAR PREMATURE COMPLEXES MARKED LEFT AXIS DEVIATION ST DEVIATION AND MODERATE T-WAVE ABNORMALITY, CONSIDER LATERAL ISCHEMIA ABNORMAL ECG PREVIOUS TRACING : 09/04/2017 11.57 Compared to prior tracing no significant change DOCTOR: Elieser Whiting Interpretating Date/Time 09/11/2017 15:41:45
[2017-09-11 15:52] LABS: BLOOD GAS BASE EXCESS -12.5 mmol/L (-2-2); BLOOD GAS CARBOXYHEMOGLOBIN 0.4 % (0-4); BLOOD GAS HCO3 15 mmol/L (22-26); BLOOD GAS O2 HGB SATURATION 64 % (90-100); BLOOD GAS OXYGEN CONTENT 9.9 Vol % (12.0-20.0); BLOOD GAS PCO2 50 mmHg (38-42); BLOOD GAS PO2 50 mmHg (61-120); CRITICAL VALUE YES; OXYGEN DEVICE VENTILATOR; TEMP CORR TO 98.6
[2017-09-11 15:53] LABS: DRAW SITE RT RADIAL; FIO2 100 %; NUMBER OF ARTERIAL PUNCTURES 2; STAT YES; ULNAR PULSE PRESENT; VENT SETTINGS PRVC/AC
[2017-09-11] MEDS: SODIUM BICARBONATE 8.4% INJ 150 MEQ in DEXTROSE 5% IN WATE 1000ML INJ 1,000 ML IV SCH ×4 (15:57→23:55)
[2017-09-11 16:04] LABS: INTERNATIONAL NORMALIZED RATIO 2.2 RATIO; PROTHROMBIN TIME - PATIENT 22.6 SEC (9.8-11.6)
[2017-09-11] MEDS: PIPERACIL-TAZO 3.375 GM PREMIX 50 ML IV SCH ×2 (16:05→23:09)
[2017-09-11] MEDS: PANTOPRAZOLE SODIUM 40 MG VIAL IV PUSH SCH (16:10)
[2017-09-11 16:49] LABS: CKMB 111.2 NG/ML (0.5-3.6)
--- NOTE | 2017-09-11 16:50 | PD.CONS ---
Consult Service Palliative Care Consult Requested By Dr. Prince. Primary Care Physician Unknown Reason for Consultation a. To assist with evaluation and management of symptoms including: Shortness of breath, debility. b. To assist medical decision maker(s) with: better understanding of current medical conditions; weighing benefits/burdens of medical treatment options; making medical treatment decisions. . HPI History of Present Illness Mr. Tomlinson is an 81-year-old male with a medical history significant for dementia, CHF, PAD, atrial fibrillation, hypertension, acute on chronic kidney disease. Patient presented to ED via EMS on 09/11/17 after being found unresponsive on the floor with emesis besides him. As per ED medical records, patient was found with poor respiratory effort on arrival, intubated by EMS at the scene. Upon ED arrival, patient received 3 L of fluid, he was placed on vasopressor secondary to hypotension. Septic workup started. Chest x-ray revealing significant infiltrate throughout the left lung. Laboratory workup revealing leukocytosis 2.5, Hgb 12.7, platelet count 218. Sodium 144, potassium 5.0, BUN/creatinine 24/1.55, lactic acid 8.6, troponin 4.50. UA negative for nitrate, negative for leukocyte. Abdomen/pelvis CT revealing dense infiltrate in both lung bases with moderate right pleural effusion, bilateral renal cysts, no evidence of bowel obstruction. Chest CT revealing significant airspace disease, signs of aspiration, small right pleural effusion. Head CT with no evidence of hemorrhage, questionable intracranial edema. Patient transferred to medical ICU for further management. Case discussed with Dr. Prince, palliative care consulted for clarifications of goals of care given very poor prognosis. Reviewed patient's past medical history. Recent ED visit on 08/25/17 for evaluation of contusion to right hip secondary to mechanical fall. Prior acute hospitalization from 03/29/17 to 04/01/17 secondary to hypokalemia. Patient was discharged to [facility] and rehabilitation where he stayed until mid- May 2017. Prior acute hospitalization from 02/14/17 to 02/18/17 secondary to pneumonia, atrial fibrillation with RVR. Patient at that time was discharged to [facility] for rehabilitation. Patient seen in medical ICU. Intubated on mechanical ventilation, not sedated. Patient comatose, unresponsive to verbal or tactile stimuli. Pupils sluggish. Currently on 2 vasopressors and bearhugger. Met with patient's daughter Dwain Rutherford and nephew Que Nunez at bedside, telephone conversation with son Bryon Tomlinson (in [place]) and Brian Tomlinson (in [place]). Medical update provided to family. Reviewed patient's past medical history, psychosocial history. Reviewed patient's progressive illness trajectory, and events leading to this hospitalization, clinical course and current medical management. Shared concerns of patient's clinical condition to include septic shock, multisystem organ failure, multiple comorbidities, progressive decline. Reviewed very poor prognosis for survival, patient not likely to survive this hospitalization. Reviewed at length risks, benefits and limitations of CPR given patient's condition. Compassionate withdrawal life support/transition to comfort-directed care introduced. Family was encouraged to continue goals of care conversation. Goals of care remain aggressive at this time to include full code. Family made aware that patient's condition is critical, not likely to survive next 24 hours. Family verbalized understanding. Ongoing emotional support and active listening provided. Case discussed with Dr. Prince and bedside RN. . Function/Cognitive Trajectory Patient residing independently prior to this hospitalization. 24-hr private caregiver. Patient requiring assistance with ADLs, ambulating with a walker. Recent [facility] facility in April and May 2017. Dementia at baseline. . Review of Systems ROS Limitations: Clinical Condition, Intubated, Unresponsive Constitutional: COMPLAINS OF: Change in appetite, DENIES: Fever Endocrine: DENIES: Heat/cold intolerance Eyes: DENIES: Eye inflammation Ears, nose, mouth, throat: DENIES: Nasal discharge, Oral lesions, Hoarseness Cardiovascular: DENIES: Lower Extremity Edema Gastrointestinal: COMPLAINS OF: Vomiting Integumentary: DENIES: Abnormal pigmentation Hematologic/Lymphatics: DENIES: Bruising Immunologic/Allergic: DENIES: Eczema Neurologic: DENIES: Localized weakness, Seizures Psychiatric: COMPLAINS OF: Confusion, DENIES: Agitation Other ROS: Limited ROS secondary to patient's clinical condition, comatose. ROS obtained from medical records, patient's family and clinical observation. Past Family Social History Coded Allergies: No Known Allergies (Verified Allergy, Unknown, 09/11/17) Past Medical History Dementia Hypertension Atrial fibrillation PAD CHF Acute on chronic kidney failure Anxiety History of c. Diff . Past Surgical History Carotid endarterectomy . Reported Medications Potassium Chloride ER (Potassium Chloride) 20 Meq Tab 20 Meq PO DAILY Lasix (Furosemide) 20 Mg Tab 20 Mg PO DAILY Remeron (Mirtazapine) 15 Mg Tab 7.5 Mg PO HS Xanax (Alprazolam) 0.5 Mg Tab 0.5 Mg PO HS Coumadin (Warfarin) 5 Mg Tab 5 Mg PO DAILY Metoprolol Tartrate 50 Mg Tab 50 Mg PO DAILY Plavix (Clopidogrel Bisulfate) 75 Mg Tab 75 Mg PO DAILY Crestor (Rosuvastatin Calcium) 10 Mg Tab 10 Mg PO DAILY . Current Medications Medications (Trade) Dose Ordered Sig/Debbie Route Start Time Stop Time Status Last Admin Fentanyl Citrate 250 ml @ 5 mls/hr TITRATE PRN IV 09/11/17 10:30 Norepinephrine Bitartrate 250 ml @ 7.5 mls/hr TITRATE PRN IV 09/11/17 10:30 09/11/17 15:47 (NS Flush) 2 ml UNSCH PRN IV FLUSH 09/11/17 11:45 (Protonix Inj) 40 mg DAILY IV PUSH 09/11/17 15:00 (Duoneb Neb) 1 ampule Q6HR NEB INH 09/11/17 13:00 09/11/17 13:00 Miscellaneous Information 1 Q361D XX 09/11/17 13:00 (Chlorhexidine 2% Cloth) 3 pack Taper DAILY@04 TOP 09/12/17 04:00 09/08/18 03:59 (Chlorhexidine 2% Cloth) 3 pack UNSCH PRN TOP 09/11/17 13:00 Pharmacy Profile Note 0 ml @ 0 mls/hr UNSCH OTHER 09/11/17 13:15 Azithromycin 500 mg/Sodium Chloride 250 ml @ 250 mls/hr Q24H IV 09/12/17 11:00 (SoluCORTEF INJ) 50 mg Q6HR IV PUSH 09/11/17 14:00 09/11/17 13:47 (D50w (Vial) Inj) 50 ml UNSCH PRN IV PUSH 09/11/17 13:15 (Glucagon Inj) 1 mg UNSCH PRN OTHER 09/11/17 13:15 (NovoLIN R SUPPLEMENTAL SCALE) 1 Q4H SQ 09/11/17 14:00 Phenylephrine HCl 40 mg/Dextrose 500 ml @ 30 mls/hr TITRATE PRN IV 09/11/17 13:45 09/11/17 15:00 (Brethine Inj) 1 mg UNSCH PRN SQ 09/11/17 13:45 Sodium Bicarbonate 150 meq/Dextrose 1,150 ml @ 125 mls/hr Q9H12M IV 09/11/17 15:00 09/11/17 15:57 Vancomycin HCl 1000 mg/Sodium Chloride 250 ml @ 250 mls/hr Q24H IV 09/11/17 14:00 Miscellaneous Information SPECIFIC LAB TO BE DRAWN:VANCOMYCIN TROUGH DATE TO... ONCE ONCE .XX 09/14/17 13:45 09/14/17 13:46 Piperacillin Sod/ Tazobactam Sod 50 ml @ 100 mls/hr Q8H IV 09/11/17 15:00 Family History Family history of heart disease and COPD. . Substance Use Tobacco: Former smoker. Quit in 2013, smoked a pack a day. Alcohol: Social drinker. Prescription med abuse: None reported. Illicits: None reported. . Psychosocial History Patient originally from [place], [place]. since 1999. He was for 45 years, has 3 children. 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 . Spiritual/Cultural Factors Adventist maggy. . Living Will: Never completed Health Care Surrogate: Never completed Durable Power of [employer] Assistant Manager: Completed, but not made available Health Care Surrogate(s): No living will or designation of healthcare surrogate completed. As per [place] statute, healthcare proxy decision-making falls to the majority of patient's 3 children. . Documented care wishes: No living will completed. . Today's verbally stated goals: Family/friends goals: Patient's children electing to continue current medical management to include full code. Considering goals of care. . Ethical and Legal Issues Patient unable to participating in medical decision-making secondary to clinical condition. His 3 children are serving as healthcare proxy decision makers. . Physical Exam Vital Signs Date Time Temp Pulse Resp B/P (MAP) Pulse Ox O2 Delivery O2 Flow Rate FiO2 09/11/17 15:47 68/49 09/11/17 15:40 0 100 09/11/17 15:00 96 58/38 09/11/17 14:45 71 100 09/11/17 14:15 100 09/11/17 13:52 88 19 144/66 (92) 09/11/17 13:14 95.5 84 20 58/32 (41) 94 09/11/17 12:38 100 45/20 (28) 09/11/17 12:35 95.3 09/11/17 12:05 103 21 63/25 (38) 96 09/11/17 11:42 160 20 97/44 (61) 97 Auto-Vent 09/11/17 11:30 0 100 09/11/17 11:28 100 24 176/87 (116) 09/11/17 11:16 95 20 64/45 (51) 09/11/17 11:04 88 24 65/47 (53) 98 09/11/17 11:03 80 54/41 09/11/17 10:36 97.3 96 24 57/34 (42) 97 Ventilator 09/11/17 10:26 100 Ventilator 09/11/17 10:26 100 09/11/17 10:22 97 34 66/47 (53) 100 09/11/17 09:54 103 20 96/63 (74) 09/11/17 09:50 100 100 09/11/17 09/12/17 19:00 07:00 Intake Total 3590 ml Balance 3590 ml Intake IV Total 3590 ml Exam CONSTITUTIONAL/GENERAL: This is a frail, thin elderly male resting in bed in no acute distress. TUBES/LINES/DRAINS: ETT, central line, Pearson catheter, bearhugger. SKIN: No jaundice, rashes, or lesions. No wounds seen anteriorly. Skin temperature appropriate. Not diaphoretic. Dry skin on lower extremities. HEAD: Atraumatic. Normocephalic. EYES: Pupils sluggish. No scleral icterus. No injection or drainage. Fundi not examined. ENT: Unable to evaluate hearing secondary to clinical condition. Nose without bleeding or purulent drainage. Moist oral mucosa. NECK: Trachea midline. Supple. CARDIOVASCULAR: Irregular rate and rhythm without murmurs. Week pedal pulses bilaterally. RESPIRATORY/CHEST: Symmetric, unlabored respirations. Expiratory crackles bilaterally. Abdominal breathing on ventilator support noted. GASTROINTESTINAL: Abdomen soft, non-tender, nondistended. Bowel sounds present. GENITOURINARY: Without palpable bladder distension. Pearson catheter in place. MUSCULOSKELETAL: Extremities without clubbing, cyanosis, or edema. No mottling or clubbing. Muscle wasting to all 4 extremities. NEUROLOGICAL: Comatose, off sedation. PSYCHIATRIC: Unable to evaluate giving clinical condition. . Diagnostic Tests Laboratory Laboratory Tests Test 09/11/17 09:55 09/11/17 10:20 09/11/17 10:27 09/11/17 10:45 Blood Gas Puncture Site RT RADIAL RT RADIAL Blood Gas Patient Temperature 98.6 98.6 Blood Gas HCO3 16 mmol/L (22-26) 12 mmol/L (22-26) Blood Gas Base Excess -8.7 mmol/L (-2-2) -16.1 mmol/L (-2-2) Blood Gas Oxygen Saturation 98 % (90-100) 71 % (90-100) Arterial Blood pH 7.35 (7.380-7.420) 7.09 (7.380-7.420) Arterial Blood Partial Pressure CO2 30 mmHg (38-42) 41 mmHg (38-42) Arterial Blood Partial Pressure O2 216 mmHG (61-120) 59 mmHG (61-120) Arterial Blood Oxygen Content 13.0 Vol % (12.0-20.0) 10.8 Vol % (12.0-20.0) Arterial Blood Carboxyhemoglobin 1.1 % (0-4) 0.5 % (0-4) Arterial Blood Methemoglobin 0.3 % (0-2) 0.6 % (0-2) Blood Gas Hemoglobin 9.0 G/DL (12.0-16.0) 10.8 G/DL (12.0-16.0) Oxygen Delivery Device VENTILATOR VENTILATOR Blood Gas Ventilator Setting Blood Gas Inspired Oxygen 100 % 60 % White Blood Count 12.5 TH/MM3 (4.0-11.0) Red Blood Count 5.38 MIL/MM3 (4.50-5.90) Hemoglobin 12.7 GM/DL (13.0-17.0) Hematocrit 42.0 % (39.0-51.0) Mean Corpuscular Volume 78.0 FL (80.0-100.0) Mean Corpuscular Hemoglobin 23.7 PG (27.0-34.0) Mean Corpuscular Hemoglobin Concent 30.3 % (32.0-36.0) Red Cell Distribution Width 15.9 % (11.6-17.2) Platelet Count 318 TH/MM3 (150-450) Mean Platelet Volume 7.8 FL (7.0-11.0) Neutrophils (%) (Auto) 71.9 % (16.0-70.0) Lymphocytes (%) (Auto) 18.8 % (9.0-44.0) Monocytes (%) (Auto) 8.8 % (0.0-8.0) Eosinophils (%) (Auto) 0.0 % (0.0-4.0) Basophils (%) (Auto) 0.5 % (0.0-2.0) Neutrophils # (Auto) 8.9 TH/MM3 (1.8-7.7) Lymphocytes # (Auto) 2.3 TH/MM3 (1.0-4.8) Monocytes # (Auto) 1.1 TH/MM3 (0-0.9) Eosinophils # (Auto) 0.0 TH/MM3 (0-0.4) Basophils # (Auto) 0.1 TH/MM3 (0-0.2) CBC Comment DIFF FINAL Differential Comment Blood Urea Nitrogen 24 MG/DL (7-18) Creatinine 1.55 MG/DL (0.60-1.30) Random Glucose 132 MG/DL (74-106) Total Protein 8.0 GM/DL (6.4-8.2) Albumin 2.9 GM/DL (3.4-5.0) Calcium Level 8.5 MG/DL (8.5-10.1) Magnesium Level 2.1 MG/DL (1.5-2.5) Alkaline Phosphatase 158 U/L (45-117) Aspartate Amino Transf (AST/SGOT) 93 U/L (15-37) Alanine Aminotransferase (ALT/SGPT) 26 U/L (12-78) Total Bilirubin 0.7 MG/DL (0.2-1.0) Sodium Level 144 MEQ/L (136-145) Potassium Level 5.0 MEQ/L (3.5-5.1) Chloride Level 110 MEQ/L (98-107) Carbon Dioxide Level 19.2 MEQ/L (21.0-32.0) Anion Gap 15 MEQ/L (5-15) Estimat Glomerular Filtration Rate 52 ML/MIN (>89) Lactic Acid Level 8.6 mmol/L (0.4-2.0) Total Creatine Kinase 2129 U/L (39-308) Creatine Kinase MB 40.9 NG/ML (0.5-3.6) Creatine Kinase MB % 1.9 % (0.0-4.0) Troponin I 4.50 NG/ML (0.02-0.05) Urine Color YELLOW (YELLW/STRAW) Urine Turbidity CLEAR (CLEAR) Urine pH 5.5 (5.0-8.5) Urine Specific [place] 1.024 (1.002-1.035) Urine Protein 100 mg/dL (NEG-TRACE) Urine Glucose (UA) NEG mg/dL (NEG) Urine Ketones NEG mg/dL (NEG) Urine Occult Blood SMALL (NEG) Urine Nitrite NEG (NEG) Urine Bilirubin NEG (NEG) Urine Urobilinogen LESS THAN 2.0 MG/DL (LESS Urine Leukocyte Esterase NEG (NEG) Urine RBC 1 /hpf (0-3) Urine WBC 1 /hpf (0-5) Urine Squamous Epithelial Cells 1 /hpf (0-5) Urine Mucus FEW /lpf (OCC) Microscopic Urinalysis Comment CATH-CULT NOT IND Test 09/11/17 15:15 09/11/17 15:17 09/11/17 15:25 Blood Gas Puncture Site RT RADIAL Blood Gas Patient Temperature 98.6 Blood Gas HCO3 15 mmol/L (22-26) Blood Gas Base Excess -12.5 mmol/L (-2-2) Blood Gas Oxygen Saturation 64 % (90-100) Arterial Blood pH 7.11 (7.380-7.420) Arterial Blood Partial Pressure CO2 50 mmHg (38-42) Arterial Blood Partial Pressure O2 50 mmHg (61-120) Arterial Blood Oxygen Content 9.9 Vol % (12.0-20.0) Arterial Blood Carboxyhemoglobin 0.4 % (0-4) Arterial Blood Methemoglobin 1.0 % (0-2) Blood Gas Hemoglobin 11.0 G/DL (12.0-16.0) Oxygen Delivery Device VENTILATOR Blood Gas Ventilator Setting PRVC/AC Blood Gas Inspired Oxygen 100 % Result Diagram: 09/11/17 1020 09/11/17 1020 Microbiology Microbiology Date/Time Source Procedure Growth Status 09/11/17 10:30 Blood Peripheral Aerobic Blood Culture Pending Received 09/11/17 10:30 Blood Peripheral Anaerobic Blood Culture Pending Received 09/11/17 10:20 Blood Peripheral Aerobic Blood Culture Pending Received 09/11/17 10:20 Blood Peripheral Anaerobic Blood Culture Pending Received Imaging Last Impressions Chest X-Ray 09/11/17 1040 Signed Impressions: Service Date/Time: August 10:44 - CONCLUSION: 1. Stable ETT. 2. Right subclavian central line in good position without pneumothorax. 3. No significant interval change with continued diffuse airspace disease throughout the left upper to mid lung zones and right perihilar mid to upper lung zones. Sergio Norris MD Head CT 09/11/17 0955 Signed Impressions: Service Date/Time: , September 11, 2017 14:14 - CONCLUSION: No evidence of hemorrhage. Some motion making it difficult to evaluate the schaefer-white differentiation. The sulci are not as prominent as they were in March raise the possibility of intracranial edema Chacorta Gallagher MD Chest CT 09/11/17 0000 Signed Impressions: Service Date/Time: , September 11, 2017 14:20 - CONCLUSION: Significant airspace disease in the dependent portion of both lungs with very minimal normal lung anteriorly. The combination of ground glass infiltrate in dense areas of consolidation. The dependent distribution certainly aspiration is within the differential. Small right pleural effusion. Tubes and catheters in good position. Dense coronary atherosclerotic disease Chacorta Gallagher MD Abdomen/Pelvis CT 09/11/17 0000 Signed Impressions: Service Date/Time: August 14:20 - CONCLUSION: Dense infiltrate in both lung bases with this moderate right pleural effusion. Bilateral renal cysts. Dense atherosclerotic disease. Pearson catheter in good position. Small amount of fluid in both inguinal canals. No evidence of bowel obstruction. Chacorta Gallagher MD Procedures * 09/11/17 -endotracheal intubation . Patient/Family Conference Present at Family Conference: Met with patient's daughter Dwain Rutherford and nephew Que Nunez at bedside, telephone conversation with son Bryon Tomlinson (in [place]) and Brian Tomlinson (in [place]). . Family Conference Time (mins): 58 Family Conference Location: Bedside, Telephone Issues Discussed: * Palliative care role, purpose, approach * Additional medical, psychosocial, and spiritual history * Patients general health, functional status, and cognitive changes in the months leading up to the current hospitalization * Patient/family understanding of the current medical problems -septic shock, A. fib with RVR, bilateral infiltrates, pneumonia. * Patient/family understanding of prognosis -very poor prognosis for survival * Patients goals of care as best understood from advance directives and/or conversations and/or values * Current medical treatment options and benefits/burdens of those options * Likely scenarios comparing ongoing aggressive care with a transition to comfort measures only * Questions answered to the best of my ability * Palliative care contact information provided * Risks, benefits and limitations of CPR given patient's critical condition . Assessment and Plan Disease Oriented Problem List: (1) Septic shock (2) Acute respiratory failure (3) Aspiration pneumonia (4) Acute on chronic kidney failure (5) Atrial fibrillation with RVR Symptom Scale: (1) Dyspnea 0-10 Scale: Unable to quantify Comment: Currently intubated on mechanical ventilation. (2) Debility 0-10 Scale: Unable to quantify Comment: Progressive. Pertinent Non-Medical Issues Psychosocial: Patient originally from [place], [place]. since 1999. He was for 45 years, has 3 children. 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 Spiritual: Adventist maggy. Legal: Power of state attorney completed. Ethical issues impacting care: Patient unable to participating in medical decision-making secondary to clinical condition. His 3 children are serving as healthcare proxy decision makers. . Important Contacts Daughter Dwain Rutherford son Bryon Son Brian . Prognosis Mr. Tomlinson is an 81-year-old male with a medical history significant for dementia, CHF, PAD, atrial fibrillation, hypertension, acute on chronic kidney disease. Patient with progressive functional decline since January 2017, requiring [facility] since January. Patient currently on septic shock requiring vasopressors and mechanical ventilation. Overall prognosis for survival is very poor. . Code Status: Full Code Plan * CODE STATUS: Full code. Risks, benefits and limitations of CPR were discussed at length with patient's family. Family was encouraged to consider CODE STATUS given very poor prognosis. * HEALTHCARE DECISION-MAKING: Patient lacks medical decision-making secondary to clinical condition, comatose. Will not regain capacity. No advance directives completed. As per [place] statute, healthcare proxy decision-making falls to the majority of patient's children for which he has 3. All his 3 children Brian Prakash and Bryon wishing to participate in medical decision- making. * GOALS OF CARE: Family electing to continue aggressive management at this time to include full code. Lengthy conversation with patient's family regarding very poor prognosis for survival. Fam was encouraged to continue GOC conversation to include code status. Comfort-directed care/compassionate withdrawal of life support has been introduced to family given very poor prognosis. Family receptive to ongoing goals of care conversation/palliative care follow up. * SYMPTOMS: = Dyspnea, multifactorial. Currently intubated on mechanical ventilation. = Debility, progressive. * Case discussed at length with Dr. Prince and bedside RN. * Palliative care contact information has been provided to patient's family. * Palliative care will continue to follow-up for further clarifications of goals of care as patient's clinical course continues to evolve. . Time Spent Total Floor Time (mins): 84 (Total time to include review and summarization of available medical records to include prior hospitalizations and ED visits, physical exam, goals of care conversation with patient's daughter Dwain, separate telephone conversation with son Brian, telephone conversation with twan Slater, case discussion with Dr. Prince and bedside RN.) >50% Counseling/Coord of Care: Yes Thank you for the opportunity to participate in the care of Mr. Tomlinson. Attestation To help prompt me to consider important information that might be impacting today's encounter and assessment, information from prior notes written by myself or my colleagues may have been "brought forward" into today's note. My signature on this note, however, is an attestation that I personally performed the exam, history, and/or decision-making noted today, and, unless otherwise indicated, the interactions with patient, family, and staff as well as the review of records all occurred today. I also attest that the listed assessment and stated plan reflect my best clinical judgment today based on the combination of historical information, prior notes, and today's exam/ interactions. When time spent is documented, it refers only to time spent today by the signer, or if indicated, combined time spent today by collaborating physician/nurse practitioner. Cassy Rodríguez Sep 11, 2017 16:50
--- NOTE | 2017-09-11 17:14 | MH ---
cc: INES TOBIN DATE OF ADMISSION 09/11/2017 1933 HISTORY OF PRESENT ILLNESS The patient is 81-year-old male with past medical history of chronic atrial fibrillation on Coumadin, coronary artery disease, hypertension, mild LV systolic dysfunction with EF of 40-45%. The patient presented to [facility] ED via [facility] after being found down in his home this morning. He was last seen over 24 hours ago. [facility] reports that they found him on the bedroom floor in left lateral decubitus position with emesis beside him. He was intubated by [facility] and was started on IV fluids en route. 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 On arrival to the emergency room, he was hypotensive, tachycardiac and hypothermic. The patient was given three liters of crystalloids in the ED and was started on Levophed. ABG post intubation showed a pH of 7.35, CO2 30, pAO2 216, bicarb 16, sats of 98%. A repeat ABG was performed at 10:45 a.m. which showed severe metabolic acidosis with a pH of 7.09, CO2 41, bicarb of 12. His laboratory data is significant for severe lactic acidosis with lactic acid level of 8.6, acute kidney injury with creatinine level of 1.5 and, in addition, the patient was in rhabdomyolysis where his total CK was elevated at 2129 and troponin 4.5. Chest x-ray post intubation showed diffuse airspace disease throughout the left upper to mid lung zones and right perihilar mid to upper lung zones. A right subclavian central line was placed by the ED physician. In addition to crystalloids, he received Rocephin and azithromycin. When seen, the patient is on full mechanical ventilation with agonal breathing. No family members present at the bedside and most of the history was obtained from reviewing the medical records and from my discussion with the ED staff. PAST MEDICAL HISTORY 1. Chronic atrial fibrillation, 2. Hypertension, 3. Coronary artery disease, 4. Peripheral arterial disease. PAST SURGICAL HISTORY Previous carotid endarterectomy. SOCIAL HISTORY Lives alone, nonsmoker, nondrinker. ALLERGIES NO KNOWN DRUG ALLERGIES MEDICATIONS Reported medications include 1. Potassium. 2. Xanax. 3. Coumadin. 4. Metoprolol. 5. Plavix. 6. Crestor. FAMILY HISTORY Unobtainable. REVIEW OF SYSTEMS Unobtainable. PHYSICAL EXAMINATION GENERAL: An 81-year-old male intubated critically ill in septic shock. VITAL SIGNS: Temperature 95.5. Pulse of 88, respiratory rate of 19, blood pressure 144/66 on Levophed, vent setting PRVC rate of 14, tidal volume 500, I time 1, PEEP of 5, 100% FIO2. HEENT: Atraumatic, normocephalic. Pupils equal, round and reactive to light and accommodation. Extraocular muscles intact. Conjunctivae pink. Nonicteric sclerae. Oral mucosa within normal. NECK: Supple. No JVD, adenopathy, thyromegaly. Trachea in the midline CARDIOVASCULAR: Irregularly irregular. Normal S1-S2. No murmurs, rubs or gallops noted. LUNGS: Bilateral equal entry with coarse breath sounds. ABDOMEN: Soft, nontender, hypoactive bowel sounds. EXTREMITIES: No cyanosis, edema. NEUROLOGIC: Intubated, unresponsive. LABORATORY DATA Sodium 144, potassium five, chloride 110, CO2 19, BUN 24, creatinine of 1.55, glucose 132, lactic acid 8.6, AST 93, ALT 26, total bilirubin 0.7, total CK 2129, troponin 4.5, CK-MB 40.9, albumin 2.9, WBC 12.5, hemoglobin 12.7, hematocrit 42, platelet count 318. Urinalysis negative for ketones, negative leukocyte esterase, negative nitrite, one WBC. IMAGING STUDIES Chest x-ray Post-intubation showed diffuse airspace disease throughout the left upper to mid lung zones and right perihilar mid to upper lung zones. CARDIOLOGY STUDIES EKG showed atrial fibrillation. IMPRESSION 1. Vent dependent respiratory failure. 2. Encephalopathy. 3. Septic shock. 4. Lactic acidemia 5. Acute kidney injury. 6. Rhabdomyolysis. 7. Probable pneumonia. 8. Elevated troponins. 9. Elevated AST. 10. Leukocytosis 11. Anemia 12. History of chronic atrial fibrillation on Coumadin. 13. History of hypertension. 14. History of coronary artery disease. RECOMMENDATIONS 1. Monitor neuro status closely. Fentanyl drip ordered for sedation and vent synchrony if needed. We will check stat CT scan of the brain without contrast due to rule out IN HOME NANNY bleed. Of note, the patient is on Coumadin for a history of atrial fibrillation. 2. Continue with vent support and maintain sats above 92%. 3. Bronchodilators in the form of DuoNeb q. six. We will initiate ICU vent bundle. 4. Place on stress dose steroids in the form of hydrocortisone 50 mg IV q. six, first dose now. 5. Continue with Levophed and add Wild-Synephrine if needed. Monitor heart rate and blood pressure closely and keep MAP greater than 65 mmHg. 5. Monitor cardiac enzymes with troponins and we will obtain 2-D echo to evaluate LV function and to rule out regional wall motion abnormalities. 6. The patient had an echo in March which showed an EF of 40-45%. 7. Stress dose steroids as stated above. Serial lactic acid monitoring until clear. 8. We will give aspirin 325 mg p.o. x 1 dose now. 9. Cardiology consult for elevated troponins. 10. Monitor renal function Is and Os and avoid nephrotoxins. He was given three liters of crystalloids in the ED. We will give an additional one liter bolus of normal saline in addition to two ampules sodium bicarb IV push and place on bicarb drip D5W with 3 ampules of bicarb at 125 an hour. We will repeat BMP. 11. Keep n.p.o. for now. Monitor AST and place on Protonix 40 mg IV daily for GI prophylaxis. 12. We will obtain a CT scan of the abdomen and pelvis to rule to rule out acute abdominal process. Also we will check CT scan of the chest for further evaluation of pulmonary parenchyma. 13. Place on broad-spectrum antibiotics in the form of vancomycin, Zosyn and azithromycin. Blood cultures x2 sets was performed in the ED. We will check sputum culture with gram stain. In addition, we will check strep pneumonia and Legionella urinary antigen. We will consult ID service. 14. Monitor CBC. In addition, we will check a coagulation profile stat as the patient is on Coumadin at home for A. Fib. 15. Place on sliding scale insulin with Accu-Cheks to maintain euglycemia. 16. GI prophylaxis with Protonix 40 mg daily and DVT prophylaxis with SCDs. Start chemical anticoagulation prophylaxis if CT scan of the brain is negative for bleed and if INR is subtherapeutic with INR less than 1.5. 17. Right subclavian central line was placed by ED physician. 18. Case discussed with ED nursing staff. The patient is critically ill with multi-organ failure and prognosis is guarded. We will consult palliative care to assess with goals of care. Critical care time 60 minutes excluding procedures. MD MELVA De Oliveira/ /2:16 PM /4:19 PM
[2017-09-11 18:47] LABS: AUTOMATED NEUTROPHIL # 9.9 TH/MM3 (1.8-7.7); BASOPHIL % 0.2 % (0.0-2.0); HEMATOCRIT 35.3 % (39.0-51.0); HEMO FLAGS DIFF FINAL; LYMPH % 7.4 % (9.0-44.0); LYMPHOCYTE # 0.8 TH/MM3 (1.0-4.8); MEAN CELL VOLUME 78.3 FL (80.0-100.0); MEAN CORPUSCULAR HEMOGLOBIN 24.3 PG (27.0-34.0); MONO % 3.9 % (0.0-8.0); NEUT % 88.5 % (16.0-70.0); PLATELET COUNT 289 TH/MM3 (150-450); RED BLOOD COUNT 4.51 MIL/MM3 (4.50-5.90); WHITE BLOOD COUNT 11.2 TH/MM3 (4.0-11.0)
[2017-09-11 19:07] LABS: BICARBONATE 22.5 MEQ/L (21.0-32.0); POTASSIUM 3.8 MEQ/L (3.5-5.1)
[2017-09-11 19:36] LABS: CALCIUM-PROTEIN CORRECTED 6.7 MG/DL (8.5-10.1)
--- NOTE | 2017-09-11 19:41 | PD.ID.CON ---
History of Present Illness Service ID Consult Requested By Dr Marmolejo Reason for Consult septic shock, PNA Primary Care Physician Unknown Diagnoses: History of Present Illness 81 yo male with dementia and multiple med problems found down at home ? 24 hrs Upon ED arrival, patient received 3 L of fluid, he was placed on vasopressor secondary to hypotension. Chest x-ray revealing significant infiltrate throughout the left lung. Laboratory workup revealing leukocytosis 12.5, lactic acid 8.6, troponin 4.50, which went up to 19 . UA negative for nitrate, negative for leukocyte. Abdomen/pelvis CT revealing dense infiltrate in both lung bases with moderate right pleural effusion, bilateral renal cysts, no evidence of bowel obstruction. Chest CT revealing significant airspace disease, signs of aspiration, small right pleural effusion. Head CT with no evidence of hemorrhage, questionable intracranial edema. Pt is on high dose pressors, on 100 % FiO2 On broad spectrum abx Review of Systems ROS Limitations: Clinical Condition, Intubated, Altered Mental Status, Unresponsive Past Family Social History Allergies: Coded Allergies: No Known Allergies (Verified Allergy, Unknown, 09/11/17) Past Medical History dementia, CHF, PAD, atrial fibrillation, hypertension, acute on chronic kidney disease. Past Surgical History Previous carotid endarterectomy. Active Ordered Medications Medications where reviewed in EMR Antibiotics Include: azithromycin zosyn vancomycin Family History unobtainable Social History Lives alone, nonsmoker, nondrinker. Physical Exam Vital Signs Vital Signs Date Time Temp Pulse Resp B/P (MAP) Pulse Ox O2 Delivery O2 Flow Rate FiO2 09/11/17 19:15 97.3 100 20 93/66 (75) 09/11/17 19:00 97.3 99 18 97/66 (76) 96 09/11/17 18:52 98/73 09/11/17 18:45 97.2 101 20 98/73 (81) 86 09/11/17 18:30 97.2 100 23 107/66 (80) 96 09/11/17 18:15 97.0 100 24 108/61 (77) 89 09/11/17 18:00 96.8 99 23 09/11/17 17:45 96.6 100 24 95/68 (77) 09/11/17 17:31 96.4 98 24 93/54 (67) 09/11/17 17:15 96.3 100 24 91/62 (72) 09/11/17 17:00 96.1 98 24 89/67 (74) 09/11/17 16:45 95.9 99 23 86/71 (76) 09/11/17 16:30 95.7 98 23 81/62 (68) 09/11/17 16:23 0 100 09/11/17 16:15 95.7 98 23 85/61 (69) 09/11/17 16:01 95.7 99 24 80/52 (61) 09/11/17 16:00 95.7 98 24 09/11/17 15:47 68/49 09/11/17 15:45 95.7 94 14 68/49 (55) 09/11/17 15:40 0 100 09/11/17 15:31 95.9 96 13 66/31 (43) 09/11/17 15:17 95.9 94 17 68/35 (46) 09/11/17 15:00 96 58/38 09/11/17 14:45 71 100 09/11/17 14:43 96 15 75/39 (51) 09/11/17 14:15 100 09/11/17 13:52 88 19 144/66 (92) 09/11/17 13:14 95.5 84 20 58/32 (41) 94 09/11/17 12:38 100 45/20 (28) 09/11/17 12:35 95.3 09/11/17 12:05 103 21 63/25 (38) 96 09/11/17 11:42 160 20 97/44 (61) 97 Auto-Vent 09/11/17 11:30 0 100 09/11/17 11:28 100 24 176/87 (116) 09/11/17 11:16 95 20 64/45 (51) 09/11/17 11:04 88 24 65/47 (53) 98 09/11/17 11:03 80 54/41 09/11/17 10:36 97.3 96 24 57/34 (42) 97 Ventilator 09/11/17 10:26 100 Ventilator 09/11/17 10:26 100 09/11/17 10:22 97 34 66/47 (53) 100 09/11/17 09:54 103 20 96/63 (74) 09/11/17 09:50 100 100 Physical Exam CONSTITUTIONAL/GENERAL: This is an adequately nourished patient, in no apparent distress. On vent TUBES/LINES/DRAINS: SKIN: No jaundice, rashes, or lesions. Ecchymoses on upper extremities. No wounds seen anteriorly. Skin temperature appropriate. Not diaphoretic. HEAD: Atraumatic. Normocephalic. EYES: Pupils equal and round and reactive. Extraocular motions intact. No scleral icterus. No injection or drainage. Fundi not examined. ENT: Hearing not tested. Nose without bleeding or purulent drainage. Throat without visible erythema, exudates, masses, or lesions. NECK: Trachea midline. Supple, nontender. CARDIOVASCULAR: Regular rate and rhythm without murmurs, gallops, or rubs. No JVD. Peripheral pulses symmetric. Perfusion decresed RESPIRATORY/CHEST: Symmetric, unlabored respirations. Diffuse rhonchi to auscultation. Breath sounds equal bilaterally. GASTROINTESTINAL: Abdomen soft, non-tender, nondistended. No hepato-splenomegaly , or palpable masses. No guarding. Bowel sounds not audible GENITOURINARY: Without palpable bladder distension. Pearson catheter in place, minimal urine MUSCULOSKELETAL: Extremities without clubbing, cyanosis, or edema. No joint tenderness or effusion noted. No calf tenderness. No mottling or clubbing. LYMPHATICS: No palpable cervical or supraclavicular adenopathy. NEUROLOGICAL:comatose. unresponsive PSYCHIATRIC: unable to assess Laboratory Laboratory Tests Test 09/11/17 09:55 09/11/17 10:20 09/11/17 10:27 09/11/17 10:45 Blood Gas Puncture Site RT RADIAL RT RADIAL Blood Gas Patient Temperature 98.6 98.6 Blood Gas HCO3 16 12 Blood Gas Base Excess -8.7 -16.1 Blood Gas Oxygen Saturation 98 71 Arterial Blood pH 7.35 7.09 Arterial Blood Partial Pressure CO2 30 41 Arterial Blood Partial Pressure O2 216 59 Arterial Blood Oxygen Content 13.0 10.8 Arterial Blood Carboxyhemoglobin 1.1 0.5 Arterial Blood Methemoglobin 0.3 0.6 Blood Gas Hemoglobin 9.0 10.8 Oxygen Delivery Device VENTILATOR VENTILATOR Blood Gas Ventilator Setting Blood Gas Inspired Oxygen 100 60 White Blood Count 12.5 Red Blood Count 5.38 Hemoglobin 12.7 Hematocrit 42.0 Mean Corpuscular Volume 78.0 Mean Corpuscular Hemoglobin 23.7 Mean Corpuscular Hemoglobin Concent 30.3 Red Cell Distribution Width 15.9 Platelet Count 318 Mean Platelet Volume 7.8 Neutrophils (%) (Auto) 71.9 Lymphocytes (%) (Auto) 18.8 Monocytes (%) (Auto) 8.8 Eosinophils (%) (Auto) 0.0 Basophils (%) (Auto) 0.5 Neutrophils # (Auto) 8.9 Lymphocytes # (Auto) 2.3 Monocytes # (Auto) 1.1 Eosinophils # (Auto) 0.0 Basophils # (Auto) 0.1 CBC Comment DIFF FINAL Differential Comment Blood Urea Nitrogen 24 Creatinine 1.55 Random Glucose 132 Total Protein 8.0 Albumin 2.9 Calcium Level 8.5 Magnesium Level 2.1 Alkaline Phosphatase 158 Aspartate Amino Transf (AST/SGOT) 93 Alanine Aminotransferase (ALT/SGPT) 26 Total Bilirubin 0.7 Sodium Level 144 Potassium Level 5.0 Chloride Level 110 Carbon Dioxide Level 19.2 Anion Gap 15 Estimat Glomerular Filtration Rate 52 Lactic Acid Level 8.6 Total Creatine Kinase 2129 Creatine Kinase MB 40.9 Creatine Kinase MB % 1.9 Troponin I 4.50 Urine Color YELLOW Urine Turbidity CLEAR Urine pH 5.5 Urine Specific [place] 1.024 Urine Protein 100 Urine Glucose (UA) NEG Urine Ketones NEG Urine Occult Blood SMALL Urine Nitrite NEG Urine Bilirubin NEG Urine Urobilinogen LESS THAN 2.0 Urine Leukocyte Esterase NEG Urine RBC 1 Urine WBC 1 Urine Squamous Epithelial Cells 1 Urine Mucus FEW Microscopic Urinalysis Comment CATH-CULT NOT IND Test 09/11/17 15:15 09/11/17 15:17 09/11/17 15:25 09/11/17 15:53 Prothrombin Time 22.6 Prothromb Time International Ratio 2.2 Blood Gas Puncture Site RT RADIAL Blood Gas Patient Temperature 98.6 Blood Gas HCO3 15 Blood Gas Base Excess -12.5 Blood Gas Oxygen Saturation 64 Arterial Blood pH 7.11 Arterial Blood Partial Pressure CO2 50 Arterial Blood Partial Pressure O2 50 Arterial Blood Oxygen Content 9.9 Arterial Blood Carboxyhemoglobin 0.4 Arterial Blood Methemoglobin 1.0 Blood Gas Hemoglobin 11.0 Oxygen Delivery Device VENTILATOR Blood Gas Ventilator Setting PRVC/AC Blood Gas Inspired Oxygen 100 Total Creatine Kinase 6878 Creatine Kinase MB 111.2 Creatine Kinase MB % 1.6 Troponin I 19.70 Lactic Acid Level 8.8 Test 09/11/17 17:00 09/11/17 18:33 White Blood Count 11.2 Red Blood Count 4.51 Hemoglobin 10.9 Hematocrit 35.3 Mean Corpuscular Volume 78.3 Mean Corpuscular Hemoglobin 24.3 Mean Corpuscular Hemoglobin Concent 31.0 Red Cell Distribution Width 16.0 Platelet Count 289 Mean Platelet Volume 7.5 Neutrophils (%) (Auto) 88.5 Lymphocytes (%) (Auto) 7.4 Monocytes (%) (Auto) 3.9 Eosinophils (%) (Auto) 0.0 Basophils (%) (Auto) 0.2 Neutrophils # (Auto) 9.9 Lymphocytes # (Auto) 0.8 Monocytes # (Auto) 0.4 Eosinophils # (Auto) 0.0 Basophils # (Auto) 0.0 CBC Comment DIFF FINAL Differential Comment Blood Urea Nitrogen 22 Creatinine 1.69 Random Glucose 178 Calcium Level 6.3 Sodium Level 147 Potassium Level 3.8 Chloride Level 115 Carbon Dioxide Level 22.5 Anion Gap 10 Estimat Glomerular Filtration Rate 47 Date/Time Source Procedure Growth Status 09/11/17 10:30 Blood Peripheral Aerobic Blood Culture Pending Received 09/11/17 10:30 Blood Peripheral Anaerobic Blood Culture Pending Received Result Diagram: 09/11/17 1833 09/11/17 1833 Imaging Last Impressions Chest X-Ray 09/11/17 1040 Signed Impressions: Service Date/Time: August 10:44 - CONCLUSION: 1. Stable ETT. 2. Right subclavian central line in good position without pneumothorax. 3. No significant interval change with continued diffuse airspace disease throughout the left upper to mid lung zones and right perihilar mid to upper lung zones. Sergio Norris MD Head CT 09/11/17 0955 Signed Impressions: Service Date/Time: August 14:14 - CONCLUSION: No evidence of hemorrhage. Some motion making it difficult to evaluate the schaefer-white differentiation. The sulci are not as prominent as they were in March raise the possibility of intracranial edema Chacorta Gallagher MD Chest CT 09/11/17 0000 Signed Impressions: Service Date/Time: , September 11, 2017 14:20 - CONCLUSION: Significant airspace disease in the dependent portion of both lungs with very minimal normal lung anteriorly. The combination of ground glass infiltrate in dense areas of consolidation. The dependent distribution certainly aspiration is within the differential. Small right pleural effusion. Tubes and catheters in good position. Dense coronary atherosclerotic disease Chacorta Gallagher MD Abdomen/Pelvis CT 09/11/17 0000 Signed Impressions: Service Date/Time: August 14:20 - CONCLUSION: Dense infiltrate in both lung bases with this moderate right pleural effusion. Bilateral renal cysts. Dense atherosclerotic disease. Pearson catheter in good position. Small amount of fluid in both inguinal canals. No evidence of bowel obstruction. Chacorta Gallagher MD Assessment and Plan Assessment and Plan Severe sepsis, shock PNA Acute VDRF Circulatory collapse NSTEMI, sever CHF EF 10 %, troponine > 40 Critically ill and unstable with very poor prognosis cont current abx (vanco, zosyb) cont azithromycin fu blood and sputum clx chk Leg/pneumococacal/flu antigen Discussed Condition With Uma Andres MD Sep 11, 2017 19:41
[2017-09-11 20:05] LABS: BLOOD GAS BASE EXCESS -9.8 mmol/L (-2-2); BLOOD GAS CARBOXYHEMOGLOBIN 0.6 % (0-4); BLOOD GAS HCO3 17 mmol/L (22-26); BLOOD GAS O2 HGB SATURATION 86 % (90-100); BLOOD GAS PCO2 43 mmHg (38-42); BLOOD GAS PO2 68 mmHg (61-120); BLOOD GAS TOTAL HGB 11.5 G/DL (12.0-16.0); CRITICAL VALUE YES; OXYGEN DEVICE VENTILATOR; TEMP CORR TO 98.6
[2017-09-11 20:06] LABS: DRAW SITE LT FEMORAL; FIO2 100 %; NUMBER OF ARTERIAL PUNCTURES 1; STAT NO; VENT SETTINGS PRVC / AC /
[2017-09-11 23:37] LABS: CREATINE KINASE 9730 U/L (39-308)
[2017-09-11 23:56] LABS: CKMB 158.7 NG/ML (0.5-3.6)
[2017-09-12] VITALS (12 sets, daily range): BP systolic 85–113; BP diastolic 56–77; PULSE 92–105; RESP 24; TEMP 97.9–99.5; O2SAT 95–100
[2017-09-12] MEDS: PHENYLEPHRINE INJ 40 MG in DEXTROSE 5% IN WATE 500 ML INJ 496 ML IV PRN ×6 (00:03→09:15)
[2017-09-12] MEDS ORDERED: CALCIUM GLUCONATE INJ 3 GM in SODIUM CHLORIDE 0.9% INJ 100 ML IV ONE (00:45)
[2017-09-12] MEDS: OSELTAMIVIR PHOSPHATE 6 MG/ML 60 ML SUSP PO SCH ×2 (01:29→09:01)
[2017-09-12] MEDS: INSULIN NovoLIN REGULAR SUPPLEMENTAL SCALE SQ SCH ×3 (02:00→10:00)
[2017-09-12] MEDS: RESP: ALBUTEROL 2.5 MG/IPRATROPIUM 0.5 MG NEB (SCH) INH ×2 (03:01→07:54)
[2017-09-12] MEDS ORDERED: CHLORHEXIDINE GLUCONATE 2 % 1 PACK (2 CLOTHS) TOP SCH (04:00)
[2017-09-12] MEDS: NOREPINEPHRINE-DEXTROSE DRIP 250 ML IV PRN (04:08)
[2017-09-12 04:27] LABS: AUTOMATED NEUTROPHIL # 13.1 TH/MM3 (1.8-7.7); BASOPHIL % 0.2 % (0.0-2.0); HEMATOCRIT 36.8 % (39.0-51.0); HEMO FLAGS DIFF FINAL; LYMPH % 6.3 % (9.0-44.0); LYMPHOCYTE # 0.9 TH/MM3 (1.0-4.8); MEAN CELL VOLUME 77.9 FL (80.0-100.0); MEAN CORPUSCULAR HGB CONC 30.8 % (32.0-36.0); MONO % 3.2 % (0.0-8.0); NEUT % 90.3 % (16.0-70.0); PLATELET COUNT 235 TH/MM3 (150-450); RED BLOOD COUNT 4.72 MIL/MM3 (4.50-5.90); RED CELL DISTRIBUTION WIDTH 16.2 % (11.6-17.2); WHITE BLOOD COUNT 14.5 TH/MM3 (4.0-11.0)
[2017-09-12 04:41] LABS: INTERNATIONAL NORMALIZED RATIO 2.9 RATIO
[2017-09-12 05:14] LABS: ALKALINE PHOSPHATASE 126 U/L (45-117); ALT (GPT) 51 U/L (12-78); ANION GAP 13 MEQ/L (5-15); AST (GOT) 356 U/L (15-37); BICARBONATE 22.9 MEQ/L (21.0-32.0); BLOOD UREA NITROGEN 28 MG/DL (7-18); CHLORIDE 106 MEQ/L (98-107); CREATINE KINASE 8490 U/L (39-308); GLOMERULAR FILTRATION RATE 36 ML/MIN (>89); POTASSIUM 3.9 MEQ/L (3.5-5.1); SODIUM (NA) 142 MEQ/L (136-145); TOTAL BILIRUBIN ADULT 0.6 MG/DL (0.2-1.0)
[2017-09-12 05:18] LABS: CALCIUM-PROTEIN CORRECTED 7.4 MG/DL (8.5-10.1)
[2017-09-12] MEDS: PIPERACIL-TAZO 3.375 GM PREMIX 50 ML IV SCH (05:23)
[2017-09-12] MEDS: HYDROCORTISONE SOD SUCCINATE 100 MG VIAL IV PUSH SCH (05:23)
[2017-09-12 05:30] LABS: CKMB 158.3 NG/ML (0.5-3.6)
--- NOTE | 2017-09-12 07:29 | HHI.CCPN ---
Subjective Remarks/Hospital Course Patient is 81-year-old male with past medical history of chronic atrial fibrillation on Coumadin, coronary artery disease, hypertension, mild LV systolic dysfunction with EF of 40-45%. The patient presented to [facility] ED via [facility] after being found down in his home this morning. He was last seen over 24 hours ago. [facility] reports that they found him on the bedroom floor in left lateral decubitus position with emesis beside him. He was intubated by [facility] and was started on IV fluids en route. 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 On arrival to the emergency room, he was hypotensive, tachycardiac and hypothermic. The patient was given three liters of crystalloids in the ED and was started on Levophed. ABG post intubation showed a pH of 7.35, CO2 30, pAO2 216, bicarb 16, sats of 98 %. A repeat ABG was performed at 10:45 a.m. which showed severe metabolic acidosis with a pH of 7.09, CO2 41, bicarb of 12. His laboratory data is significant for severe lactic acidosis with lactic acid level of 8.6, acute kidney injury with creatinine level of 1.5 and, in addition, the patient was in rhabdomyolysis where his total CK was elevated at 2129 and troponin 4.5. Chest x-ray post intubation showed diffuse airspace disease throughout the left upper to mid lung zones and right perihilar mid to upper lung zones. A right subclavian central line was placed by the ED physician. In addition to crystalloids, he received Rocephin and azithromycin. When seen, the patient is on full mechanical ventilation with agonal breathing. No family members present at the bedside and most of the history was obtained from reviewing the medical records and from my discussion with the ED staff. 09/12 Patient is sedated and intubated. Off Levophed remains on Neosyn 150 mics and bicarb drip. Renal function is worse this morning with Cr: 2.12 from 1.69. Lactic acid is 6.0 from 8.6 on arrival. Nasal washing + Flu. Trop>40. Objective Vital Signs Date Time Temp Pulse Resp B/P (MAP) Pulse Ox O2 Delivery O2 Flow Rate FiO2 09/12/17 06:00 92 09/12/17 06:00 98.0 24 90/66 (74) 100 09/12/17 04:00 100 09/11/17 11:42 Auto-Vent Intake and Output 09/12/17 09/12/17 09/13/17 08:00 16:00 00:00 Intake Total 2453 ml Output Total 200 ml Balance 2253 ml Result Diagram: 09/12/17 0400 09/12/17 0400 Other Results Laboratory Tests Test 09/11/17 09:55 09/11/17 10:20 09/11/17 10:27 09/11/17 10:45 Blood Gas Puncture Site RT RADIAL RT RADIAL Blood Gas Patient Temperature 98.6 98.6 Blood Gas HCO3 16 mmol/L 12 mmol/L Blood Gas Base Excess -8.7 mmol/L -16.1 mmol/L Blood Gas Oxygen Saturation 98 % 71 % Arterial Blood pH 7.35 7.09 Arterial Blood Partial Pressure CO2 30 mmHg 41 mmHg Arterial Blood Partial Pressure O2 216 mmHG 59 mmHG Arterial Blood Oxygen Content 13.0 Vol % 10.8 Vol % Arterial Blood Carboxyhemoglobin 1.1 % 0.5 % Arterial Blood Methemoglobin 0.3 % 0.6 % Blood Gas Hemoglobin 9.0 G/DL 10.8 G/DL Oxygen Delivery Device VENTILATOR VENTILATOR Blood Gas Ventilator Setting Blood Gas Inspired Oxygen 100 % 60 % White Blood Count 12.5 TH/MM3 Red Blood Count 5.38 MIL/MM3 Hemoglobin 12.7 GM/DL Hematocrit 42.0 % Mean Corpuscular Volume 78.0 FL Mean Corpuscular Hemoglobin 23.7 PG Mean Corpuscular Hemoglobin Concent 30.3 % Red Cell Distribution Width 15.9 % Platelet Count 318 TH/MM3 Mean Platelet Volume 7.8 FL Neutrophils (%) (Auto) 71.9 % Lymphocytes (%) (Auto) 18.8 % Monocytes (%) (Auto) 8.8 % Eosinophils (%) (Auto) 0.0 % Basophils (%) (Auto) 0.5 % Neutrophils # (Auto) 8.9 TH/MM3 Lymphocytes # (Auto) 2.3 TH/MM3 Monocytes # (Auto) 1.1 TH/MM3 Eosinophils # (Auto) 0.0 TH/MM3 Basophils # (Auto) 0.1 TH/MM3 CBC Comment DIFF FINAL Differential Comment Blood Urea Nitrogen 24 MG/DL Creatinine 1.55 MG/DL Random Glucose 132 MG/DL Total Protein 8.0 GM/DL Albumin 2.9 GM/DL Calcium Level 8.5 MG/DL Magnesium Level 2.1 MG/DL Alkaline Phosphatase 158 U/L Aspartate Amino Transf (AST/SGOT) 93 U/L Alanine Aminotransferase (ALT/SGPT) 26 U/L Total Bilirubin 0.7 MG/DL Sodium Level 144 MEQ/L Potassium Level 5.0 MEQ/L Chloride Level 110 MEQ/L Carbon Dioxide Level 19.2 MEQ/L Anion Gap 15 MEQ/L Estimat Glomerular Filtration Rate 52 ML/MIN Lactic Acid Level 8.6 mmol/L Total Creatine Kinase 2129 U/L Creatine Kinase MB 40.9 NG/ML Creatine Kinase MB % 1.9 % Troponin I 4.50 NG/ML Urine Color YELLOW Urine Turbidity CLEAR Urine pH 5.5 Urine Specific Sutter 1.024 Urine Protein 100 mg/dL Urine Glucose (UA) NEG mg/dL Urine Ketones NEG mg/dL Urine Occult Blood SMALL Urine Nitrite NEG Urine Bilirubin NEG Urine Urobilinogen LESS THAN 2.0 MG/DL Urine Leukocyte Esterase NEG Urine RBC 1 /hpf Urine WBC 1 /hpf Urine Squamous Epithelial Cells 1 /hpf Urine Mucus FEW /lpf Microscopic Urinalysis Comment CATH-CULT NOT IND Test 09/11/17 15:15 09/11/17 15:17 09/11/17 15:25 09/11/17 15:53 Prothrombin Time 22.6 SEC Prothromb Time International Ratio 2.2 RATIO Blood Gas Puncture Site RT RADIAL Blood Gas Patient Temperature 98.6 Blood Gas HCO3 15 mmol/L Blood Gas Base Excess -12.5 mmol/L Blood Gas Oxygen Saturation 64 % Arterial Blood pH 7.11 Arterial Blood Partial Pressure CO2 50 mmHg Arterial Blood Partial Pressure O2 50 mmHg Arterial Blood Oxygen Content 9.9 Vol % Arterial Blood Carboxyhemoglobin 0.4 % Arterial Blood Methemoglobin 1.0 % Blood Gas Hemoglobin 11.0 G/DL Oxygen Delivery Device VENTILATOR Blood Gas Ventilator Setting PRVC/AC Blood Gas Inspired Oxygen 100 % Total Creatine Kinase 6878 U/L Creatine Kinase MB 111.2 NG/ML Creatine Kinase MB % 1.6 % Troponin I 19.70 NG/ML Lactic Acid Level 8.8 mmol/L Test 09/11/17 17:00 09/11/17 18:33 09/11/17 19:56 09/11/17 22:41 Nasal Screen MRSA (PCR) MRSA NOT DETECTED White Blood Count 11.2 TH/MM3 Red Blood Count 4.51 MIL/MM3 Hemoglobin 10.9 GM/DL Hematocrit 35.3 % Mean Corpuscular Volume 78.3 FL Mean Corpuscular Hemoglobin 24.3 PG Mean Corpuscular Hemoglobin Concent 31.0 % Red Cell Distribution Width 16.0 % Platelet Count 289 TH/MM3 Mean Platelet Volume 7.5 FL Neutrophils (%) (Auto) 88.5 % Lymphocytes (%) (Auto) 7.4 % Monocytes (%) (Auto) 3.9 % Eosinophils (%) (Auto) 0.0 % Basophils (%) (Auto) 0.2 % Neutrophils # (Auto) 9.9 TH/MM3 Lymphocytes # (Auto) 0.8 TH/MM3 Monocytes # (Auto) 0.4 TH/MM3 Eosinophils # (Auto) 0.0 TH/MM3 Basophils # (Auto) 0.0 TH/MM3 CBC Comment DIFF FINAL Differential Comment Blood Urea Nitrogen 22 MG/DL Creatinine 1.69 MG/DL Random Glucose 178 MG/DL Total Protein 6.2 GM/DL Calcium Level 6.3 MG/DL Sodium Level 147 MEQ/L Potassium Level 3.8 MEQ/L Chloride Level 115 MEQ/L Carbon Dioxide Level 22.5 MEQ/L Anion Gap 10 MEQ/L Estimat Glomerular Filtration Rate 47 ML/MIN Protein Corrected Calcium 6.7 MG/DL Blood Gas Puncture Site LT FEMORAL Blood Gas Patient Temperature 98.6 Blood Gas HCO3 17 mmol/L Blood Gas Base Excess -9.8 mmol/L Blood Gas Oxygen Saturation 86 % Arterial Blood pH 7.21 Arterial Blood Partial Pressure CO2 43 mmHg Arterial Blood Partial Pressure O2 68 mmHg Arterial Blood Oxygen Content 14.0 Vol % Arterial Blood Carboxyhemoglobin 0.6 % Arterial Blood Methemoglobin 1.0 % Blood Gas Hemoglobin 11.5 G/DL Oxygen Delivery Device VENTILATOR Blood Gas Ventilator Setting PRVC / AC / Blood Gas Inspired Oxygen 100 % Lactic Acid Level 6.1 mmol/L Total Creatine Kinase 9730 U/L Creatine Kinase MB 158.7 NG/ML Creatine Kinase MB % 1.6 % Troponin I GREATER THAN 40.00 NG/ML Test 09/12/17 04:00 White Blood Count 14.5 TH/MM3 Red Blood Count 4.72 MIL/MM3 Hemoglobin 11.3 GM/DL Hematocrit 36.8 % Mean Corpuscular Volume 77.9 FL Mean Corpuscular Hemoglobin 24.0 PG Mean Corpuscular Hemoglobin Concent 30.8 % Red Cell Distribution Width 16.2 % Platelet Count 235 TH/MM3 Mean Platelet Volume 7.7 FL Neutrophils (%) (Auto) 90.3 % Lymphocytes (%) (Auto) 6.3 % Monocytes (%) (Auto) 3.2 % Eosinophils (%) (Auto) 0.0 % Basophils (%) (Auto) 0.2 % Neutrophils # (Auto) 13.1 TH/MM3 Lymphocytes # (Auto) 0.9 TH/MM3 Monocytes # (Auto) 0.5 TH/MM3 Eosinophils # (Auto) 0.0 TH/MM3 Basophils # (Auto) 0.0 TH/MM3 CBC Comment DIFF FINAL Differential Comment Prothrombin Time 29.0 SEC Prothromb Time International Ratio 2.9 RATIO Blood Urea Nitrogen 28 MG/DL Creatinine 2.12 MG/DL Random Glucose 188 MG/DL Total Protein 6.2 GM/DL Albumin 2.2 GM/DL Calcium Level 6.9 MG/DL Alkaline Phosphatase 126 U/L Aspartate Amino Transf (AST/SGOT) 356 U/L Alanine Aminotransferase (ALT/SGPT) 51 U/L Total Bilirubin 0.6 MG/DL Sodium Level 142 MEQ/L Potassium Level 3.9 MEQ/L Chloride Level 106 MEQ/L Carbon Dioxide Level 22.9 MEQ/L Anion Gap 13 MEQ/L Estimat Glomerular Filtration Rate 36 ML/MIN Lactic Acid Level 6.0 mmol/L Protein Corrected Calcium 7.4 MG/DL Total Creatine Kinase 8490 U/L Creatine Kinase MB 158.3 NG/ML Creatine Kinase MB % 1.9 % Troponin I GREATER THAN 40.00 NG/ML Imaging Last Impressions Chest X-Ray 09/11/17 1040 Signed Impressions: Service Date/Time: August 10:44 - CONCLUSION: 1. Stable ETT. 2. Right subclavian central line in good position without pneumothorax. 3. No significant interval change with continued diffuse airspace disease throughout the left upper to mid lung zones and right perihilar mid to upper lung zones. Sergio Norris MD Head CT 09/11/17 0955 Signed Impressions: Service Date/Time: August 14:14 - CONCLUSION: No evidence of hemorrhage. Some motion making it difficult to evaluate the schaefer-white differentiation. The sulci are not as prominent as they were in March raise the possibility of intracranial edema Chacorta Gallagher MD Chest CT 09/11/17 0000 Signed Impressions: Service Date/Time: August 14:20 - CONCLUSION: Significant airspace disease in the dependent portion of both lungs with very minimal normal lung anteriorly. The combination of ground glass infiltrate in dense areas of consolidation. The dependent distribution certainly aspiration is within the differential. Small right pleural effusion. Tubes and catheters in good position. Dense coronary atherosclerotic disease Chacorta Gallagher MD Abdomen/Pelvis CT 09/11/17 0000 Signed Impressions: Service Date/Time: August 14:20 - CONCLUSION: Dense infiltrate in both lung bases with this moderate right pleural effusion. Bilateral renal cysts. Dense atherosclerotic disease. Pearson catheter in good position. Small amount of fluid in both inguinal canals. No evidence of bowel obstruction. Chacorta Gallagher MD Objective Remarks GENERAL: Patient is 81 yo critically ill intubated and on Neosyn SKIN: Warm and dry. HEAD: Normocephalic. EYES: No scleral icterus. No injection or drainage. NECK: Supple, trachea midline. No JVD or lymphadenopathy. CARDIOVASCULAR: Regular rate and rhythm without murmurs, gallops, or rubs. RESPIRATORY: Breath sounds equal bilaterally. No accessory muscle use. GASTROINTESTINAL: Abdomen soft, non-tender, nondistended. Neuro: Sedated , intubated. Unresponsive off sedation. A/P Assessment and Plan 1. VDRF 2. Encephalopathy. 3. Septic shock. 4. Lactic acidemia 5. Acute kidney injury. 6. Rhabdomyolysis. 7. Positive Flu. 8. NSTEMI 9. Elevated AST. 10. Leukocytosis 11. Anemia 12 Coagulopathy 13. History of chronic atrial fibrillation on Coumadin. 14. History of hypertension. 15. History of coronary artery disease. Plan Neuro: Monitor neuro status. Fentanyl drip for sedation and vent synchrony. CT brain negative for hemorrhage. Pulm: Continue with vent support and maintain sats> 92%. Bronchodilators, ICU vent bundle. Check ABG On stress dose steroids- hydrocortisone 50 mg IV Q6 CV: Continue with Wild-Synephrine, off Levophed Monitor HR and BP keep MA> 65 mmHg. Monitor CK's/ troponin, for 2-D echo to evaluate LV function Echo in March which showed an EF of 40-45%. Serial lactic acid monitoring. Cards consulted. Continue ASA daily : Monitor renal function Is and Os and avoid nephrotoxins. On D5W with 3 ampules of bicarb at 125 an hour. Renal eval. Renal function worse today with Cr: 2.12 from 1.69 GI: Keep n.p.o. for now. Monitor AST, on Protonix 40 mg IV daily for GI prophylaxis. ID: Continue abx ( Vanco, Zosyn, Azithromycin, Tamiflu). ID is following Follow up on sputum and blood culture strep pneumonia and Legionella urinary antigen.negative Nasal washing + Flu. Heme: Monitor CBC, coags- INR: 2.9 today Endo: SSI with Accu-Cheks to maintain euglycemia. GI prophylaxis with Protonix 40 mg daily and DVT prophylaxis with SCDs. INR 2.9 Lines: Right subclavian central line was placed by ED physician 09/11 Palliative care is following. Prognosis guarded, Patient is critically ill with resp failure, septic shock, ARF, + flu , encephalopathic and multiorgan failure CCT 40 mins Boston Prince MD Sep 12, 2017 07:29
[2017-09-12] MEDS ORDERED: ASPIRIN 81 MG CHEW TAB CHEW SCH (09:00)
[2017-09-12] MEDS: SODIUM BICARBONATE 8.4% INJ 150 MEQ in DEXTROSE 5% IN WATE 1000ML INJ 1,000 ML IV SCH ×2 (09:01)
[2017-09-12] MEDS: PANTOPRAZOLE SODIUM 40 MG VIAL IV PUSH SCH (09:02)
[2017-09-12 09:07] LABS: BLOOD GAS BASE EXCESS -4.5 mmol/L (-2-2); BLOOD GAS CARBOXYHEMOGLOBIN 0.9 % (0-4); BLOOD GAS HCO3 21 mmol/L (22-26); BLOOD GAS O2 HGB SATURATION 95 % (90-100); BLOOD GAS OXYGEN CONTENT 15.2 Vol % (12.0-20.0); BLOOD GAS PCO2 42 mmHg (38-42); BLOOD GAS PO2 98 mmHg (61-120); BLOOD GAS TOTAL HGB 11.3 G/DL (12.0-16.0); TEMP CORR TO 98.6
[2017-09-12 09:08] LABS: CRITICAL VALUE NO; DRAW SITE RT RADIAL; FIO2 80 %; NUMBER OF ARTERIAL PUNCTURES 1; OXYGEN DEVICE VENTILATOR; ULNAR PULSE PRESENT; VENT SETTINGS PRVC/AC
[2017-09-12 09:09] LABS: STAT NO
--- NOTE | 2017-09-12 10:13 | PD.CONS ---
HPI Service Cardiology Consult Requested By Dr Arizmendi Reason for Consult elevated troponin and atrial fibrillation Primary Care Physician Unknown History of Present Illness The patient is is an 81 year old male known to our practice last evaluated 2015 with a cardiac history of atrial fibrillation, ASHD, carotid stenosis, PAD , HTN, HLD, TIA and MVP. The patient was not on oral anticoagulation due to history of falls and frail, elderly state. The patient presented to the hospital critically ill. He was found unresponsive with emesis on the floor by his nephew at home. Time down is unknown. He was intubated in the field. Work up reveals septic shock with multiorgan involvement and influenza A. We have been consulted for elevated troponin and atrial fibrillation. EKG does not reveal acute ischemic stress, however compared to EKG from ER visit 09/04/2017 there is slight change of lateral leads. Echo is pending. (Nancy Mosley) Review of Systems ROS Limitations: Intubated, Unresponsive (Nancy Mosley) Past Family Social History Allergies: Coded Allergies: No Known Allergies (Verified Allergy, Unknown, 09/11/17) Past Medical History Obtained from old records ASHD TIA Atrial fib/flutter MVP HTN HLD Carotid stenosis PAD Tobacco use Past Surgical History Procedure with Dr Green 2012 Reported Medications Reported Meds & Active Scripts Active Potassium Chloride ER (Potassium Chloride) 20 Meq Tab 20 Meq PO DAILY Lasix (Furosemide) 20 Mg Tab 20 Mg PO DAILY Reported Remeron (Mirtazapine) 15 Mg Tab 7.5 Mg PO HS Xanax (Alprazolam) 0.5 Mg Tab 0.5 Mg PO HS Coumadin (Warfarin) 5 Mg Tab 5 Mg PO DAILY Metoprolol Tartrate 50 Mg Tab 50 Mg PO DAILY Plavix (Clopidogrel Bisulfate) 75 Mg Tab 75 Mg PO DAILY Crestor (Rosuvastatin Calcium) 10 Mg Tab 10 Mg PO DAILY Active Ordered Medications Current Medications Medications (Trade) Dose Ordered Sig/Debbie Route Start Time Stop Time Status Last Admin Fentanyl Citrate 250 ml @ 5 mls/hr TITRATE PRN IV 09/11/17 10:30 09/11/17 21:20 Norepinephrine Bitartrate 250 ml @ 7.5 mls/hr TITRATE PRN IV 09/11/17 10:30 09/12/17 04:08 (NS Flush) 2 ml UNSCH PRN IV FLUSH 09/11/17 11:45 09/12/17 09:02 (Protonix Inj) 40 mg DAILY IV PUSH 09/11/17 15:00 09/12/17 09:02 (Duoneb Neb) 1 ampule Q6HR NEB INH 09/11/17 13:00 09/12/17 07:54 Miscellaneous Information 1 Q361D XX 09/11/17 13:00 (Chlorhexidine 2% Cloth) 3 pack Taper DAILY@04 TOP 09/12/17 04:00 09/08/18 03:59 09/12/17 02:05 (Chlorhexidine 2% Cloth) 3 pack UNSCH PRN TOP 09/11/17 13:00 Pharmacy Profile Note 0 ml @ 0 mls/hr UNSCH OTHER 09/11/17 13:15 Azithromycin 500 mg/Sodium Chloride 250 ml @ 250 mls/hr Q24H IV 09/12/17 11:00 (SoluCORTEF INJ) 50 mg Q6HR IV PUSH 09/11/17 14:00 09/12/17 05:23 (D50w (Vial) Inj) 50 ml UNSCH PRN IV PUSH 09/11/17 13:15 (Glucagon Inj) 1 mg UNSCH PRN OTHER 09/11/17 13:15 (NovoLIN R SUPPLEMENTAL SCALE) 1 Q4H SQ 09/11/17 14:00 Phenylephrine HCl 40 mg/Dextrose 500 ml @ 30 mls/hr TITRATE PRN IV 09/11/17 13:45 09/12/17 09:15 (Brethine Inj) 1 mg UNSCH PRN SQ 09/11/17 13:45 Sodium Bicarbonate 150 meq/Dextrose 1,150 ml @ 125 mls/hr Q9H12M IV 09/11/17 15:00 09/12/17 09:01 Vancomycin HCl 1000 mg/Sodium Chloride 250 ml @ 250 mls/hr Q24H IV 09/11/17 14:00 09/11/17 17:48 Miscellaneous Information SPECIFIC LAB TO BE DRAWN:VANCOMYCIN TROUGH DATE TO... ONCE ONCE .XX 09/14/17 13:45 09/14/17 13:46 Piperacillin Sod/ Tazobactam Sod 50 ml @ 100 mls/hr Q8H IV 09/11/17 15:00 09/12/17 05:23 (Tamiflu Liq) 75 mg BID PO 09/12/17 00:45 09/12/17 09:01 (Aspirin Chew) 81 mg DAILY CHEW 09/12/17 09:00 09/12/17 09:02 Family History non contributory (Nancy Mosley) Physical Exam Vital Signs Vital Signs Date Time Temp Pulse Resp B/P (MAP) Pulse Ox O2 Delivery O2 Flow Rate FiO2 09/12/17 09:15 97 85/60 09/12/17 07:50 100 80 09/12/17 06:00 92 09/12/17 06:00 98.0 92 24 90/66 (74) 100 09/12/17 05:30 95 92/71 09/12/17 05:30 95 92/71 09/12/17 05:24 93 94/69 09/12/17 05:00 98.0 96 24 95/72 (80) 100 09/12/17 04:45 98 100/65 09/12/17 04:30 98 109/61 09/12/17 04:08 100 113/2 09/12/17 04:00 100 09/12/17 04:00 100 09/12/17 04:00 97.9 100 24 113/72 (86) 98 09/12/17 03:45 100 106/77 09/12/17 03:45 100 106/77 09/12/17 03:30 102 112/71 09/12/17 03:04 95 100 09/12/17 03:00 98.0 100 24 107/77 (87) 97 09/12/17 03:00 99 107/77 09/12/17 02:30 96 110/75 09/12/17 02:15 100 115/78 09/12/17 02:15 100 115/78 09/12/17 02:00 98.3 97 24 110/76 (87) 96 09/12/17 02:00 97 09/12/17 02:00 100 110/76 09/12/17 01:45 98 109/73 09/12/17 01:29 101 103/71 09/12/17 01:10 102 100/72 09/12/17 01:00 98.8 104 24 100/72 (81) 98 09/12/17 00:15 103 106/71 09/12/17 00:03 104 104/72 09/12/17 00:00 100 09/12/17 00:00 103 09/12/17 00:00 99.5 105 24 104/72 (83) 95 09/11/17 23:54 104 104/72 09/11/17 23:24 108 106/69 09/11/17 23:23 97 100 09/11/17 23:09 110 105/64 09/11/17 23:00 110 09/11/17 23:00 100.0 110 24 105/64 (78) 100 09/11/17 22:30 112 103/70 09/11/17 22:11 112 100/71 09/11/17 22:00 113 09/11/17 22:00 100.0 113 24 100/71 (81) 98 09/11/17 21:00 99.2 108 23 99/65 (76) 100 09/11/17 20:38 88 100 09/11/17 20:00 102 09/11/17 20:00 100 09/11/17 20:00 98.0 102 21 96/75 (82) 100 09/11/17 19:49 101 93/73 09/11/17 19:15 97.3 100 20 93/66 (75) 09/11/17 19:00 97.3 99 18 97/66 (76) 96 09/11/17 19:00 99 97/66 09/11/17 19:00 99 97/66 09/11/17 18:52 98/73 09/11/17 18:45 97.2 101 20 98/73 (81) 86 09/11/17 18:30 97.2 100 23 107/66 (80) 96 09/11/17 18:15 97.0 100 24 108/61 (77) 89 09/11/17 18:00 96.8 99 23 09/11/17 17:45 96.6 100 24 95/68 (77) 09/11/17 17:31 96.4 98 24 93/54 (67) 09/11/17 17:15 96.3 100 24 91/62 (72) 09/11/17 17:00 96.1 98 24 89/67 (74) 09/11/17 16:45 95.9 99 23 86/71 (76) 09/11/17 16:30 95.7 98 23 81/62 (68) 09/11/17 16:23 0 100 09/11/17 16:15 95.7 98 23 85/61 (69) 09/11/17 16:01 95.7 99 24 80/52 (61) 09/11/17 16:00 95.7 98 24 09/11/17 15:47 68/49 09/11/17 15:45 95.7 94 14 68/49 (55) 09/11/17 15:40 0 100 09/11/17 15:31 95.9 96 13 66/31 (43) 09/11/17 15:17 95.9 94 17 68/35 (46) 09/11/17 15:00 96 58/38 09/11/17 14:45 71 100 09/11/17 14:43 96 15 75/39 (51) 09/11/17 14:15 100 09/11/17 13:52 88 19 144/66 (92) 09/11/17 13:14 95.5 84 20 58/32 (41) 94 09/11/17 12:38 100 45/20 (28) 09/11/17 12:35 95.3 09/11/17 12:05 103 21 63/25 (38) 96 09/11/17 11:42 160 20 97/44 (61) 97 Auto-Vent 09/11/17 11:30 0 100 09/11/17 11:28 100 24 176/87 (116) 09/11/17 11:16 95 20 64/45 (51) 09/11/17 11:04 88 24 65/47 (53) 98 09/11/17 11:03 80 54/41 09/11/17 10:36 97.3 96 24 57/34 (42) 97 Ventilator 09/11/17 10:26 100 Ventilator 09/11/17 10:26 100 09/11/17 10:22 97 34 66/47 (53) 100 09/11/17 09:54 103 20 96/63 (74) 09/11/17 09:50 100 100 Physical Exam GENERAL: Elderly male in ICU SKIN: Warm and dry. HEAD: Atraumatic. Normocephalic. EYES: Pupils without any notable response ENT: No nasal bleeding or discharge. NECK: Trachea midline. CARDIOVASCULAR: Irreg irreg, reg rate RESPIRATORY: Intubated. FiO2 80% GASTROINTESTINAL: Abdomen soft, nondistended. MUSCULOSKELETAL: Extremities without clubbing, cyanosis, or edema. NEUROLOGICAL: Pupils with questionable reaction, breaths over the vent PSYCHIATRIC: Unable to assess Laboratory Laboratory Tests Test 09/11/17 09:55 09/11/17 10:20 09/11/17 10:27 09/11/17 10:45 Blood Gas Puncture Site RT RADIAL RT RADIAL Blood Gas Patient Temperature 98.6 98.6 Blood Gas HCO3 16 12 Blood Gas Base Excess -8.7 -16.1 Blood Gas Oxygen Saturation 98 71 Arterial Blood pH 7.35 7.09 Arterial Blood Partial Pressure CO2 30 41 Arterial Blood Partial Pressure O2 216 59 Arterial Blood Oxygen Content 13.0 10.8 Arterial Blood Carboxyhemoglobin 1.1 0.5 Arterial Blood Methemoglobin 0.3 0.6 Blood Gas Hemoglobin 9.0 10.8 Oxygen Delivery Device VENTILATOR VENTILATOR Blood Gas Ventilator Setting Blood Gas Inspired Oxygen 100 60 White Blood Count 12.5 Red Blood Count 5.38 Hemoglobin 12.7 Hematocrit 42.0 Mean Corpuscular Volume 78.0 Mean Corpuscular Hemoglobin 23.7 Mean Corpuscular Hemoglobin Concent 30.3 Red Cell Distribution Width 15.9 Platelet Count 318 Mean Platelet Volume 7.8 Neutrophils (%) (Auto) 71.9 Lymphocytes (%) (Auto) 18.8 Monocytes (%) (Auto) 8.8 Eosinophils (%) (Auto) 0.0 Basophils (%) (Auto) 0.5 Neutrophils # (Auto) 8.9 Lymphocytes # (Auto) 2.3 Monocytes # (Auto) 1.1 Eosinophils # (Auto) 0.0 Basophils # (Auto) 0.1 CBC Comment DIFF FINAL Differential Comment Blood Urea Nitrogen 24 Creatinine 1.55 Random Glucose 132 Total Protein 8.0 Albumin 2.9 Calcium Level 8.5 Magnesium Level 2.1 Alkaline Phosphatase 158 Aspartate Amino Transf (AST/SGOT) 93 Alanine Aminotransferase (ALT/SGPT) 26 Total Bilirubin 0.7 Sodium Level 144 Potassium Level 5.0 Chloride Level 110 Carbon Dioxide Level 19.2 Anion Gap 15 Estimat Glomerular Filtration Rate 52 Lactic Acid Level 8.6 Total Creatine Kinase 2129 Creatine Kinase MB 40.9 Creatine Kinase MB % 1.9 Troponin I 4.50 Urine Color YELLOW Urine Turbidity CLEAR Urine pH 5.5 Urine Specific [place] 1.024 Urine Protein 100 Urine Glucose (UA) NEG Urine Ketones NEG Urine Occult Blood SMALL Urine Nitrite NEG Urine Bilirubin NEG Urine Urobilinogen LESS THAN 2.0 Urine Leukocyte Esterase NEG Urine RBC 1 Urine WBC 1 Urine Squamous Epithelial Cells 1 Urine Mucus FEW Microscopic Urinalysis Comment CATH-CULT NOT IND Test 09/11/17 15:15 09/11/17 15:17 09/11/17 15:25 09/11/17 15:53 Prothrombin Time 22.6 Prothromb Time International Ratio 2.2 Blood Gas Puncture Site RT RADIAL Blood Gas Patient Temperature 98.6 Blood Gas HCO3 15 Blood Gas Base Excess -12.5 Blood Gas Oxygen Saturation 64 Arterial Blood pH 7.11 Arterial Blood Partial Pressure CO2 50 Arterial Blood Partial Pressure O2 50 Arterial Blood Oxygen Content 9.9 Arterial Blood Carboxyhemoglobin 0.4 Arterial Blood Methemoglobin 1.0 Blood Gas Hemoglobin 11.0 Oxygen Delivery Device VENTILATOR Blood Gas Ventilator Setting PRVC/AC Blood Gas Inspired Oxygen 100 Total Creatine Kinase 6878 Creatine Kinase MB 111.2 Creatine Kinase MB % 1.6 Troponin I 19.70 Lactic Acid Level 8.8 Test 09/11/17 17:00 09/11/17 18:33 09/11/17 19:56 09/11/17 22:41 Nasal Screen MRSA (PCR) MRSA NOT DETECTED White Blood Count 11.2 Red Blood Count 4.51 Hemoglobin 10.9 Hematocrit 35.3 Mean Corpuscular Volume 78.3 Mean Corpuscular Hemoglobin 24.3 Mean Corpuscular Hemoglobin Concent 31.0 Red Cell Distribution Width 16.0 Platelet Count 289 Mean Platelet Volume 7.5 Neutrophils (%) (Auto) 88.5 Lymphocytes (%) (Auto) 7.4 Monocytes (%) (Auto) 3.9 Eosinophils (%) (Auto) 0.0 Basophils (%) (Auto) 0.2 Neutrophils # (Auto) 9.9 Lymphocytes # (Auto) 0.8 Monocytes # (Auto) 0.4 Eosinophils # (Auto) 0.0 Basophils # (Auto) 0.0 CBC Comment DIFF FINAL Differential Comment Blood Urea Nitrogen 22 Creatinine 1.69 Random Glucose 178 Total Protein 6.2 Calcium Level 6.3 Sodium Level 147 Potassium Level 3.8 Chloride Level 115 Carbon Dioxide Level 22.5 Anion Gap 10 Estimat Glomerular Filtration Rate 47 Protein Corrected Calcium 6.7 Blood Gas Puncture Site LT FEMORAL Blood Gas Patient Temperature 98.6 Blood Gas HCO3 17 Blood Gas Base Excess -9.8 Blood Gas Oxygen Saturation 86 Arterial Blood pH 7.21 Arterial Blood Partial Pressure CO2 43 Arterial Blood Partial Pressure O2 68 Arterial Blood Oxygen Content 14.0 Arterial Blood Carboxyhemoglobin 0.6 Arterial Blood Methemoglobin 1.0 Blood Gas Hemoglobin 11.5 Oxygen Delivery Device VENTILATOR Blood Gas Ventilator Setting PRVC / AC / Blood Gas Inspired Oxygen 100 Lactic Acid Level 6.1 Total Creatine Kinase 9730 Creatine Kinase MB 158.7 Creatine Kinase MB % 1.6 Troponin I GREATER THAN 40.00 Test 09/12/17 04:00 09/12/17 08:55 White Blood Count 14.5 Red Blood Count 4.72 Hemoglobin 11.3 Hematocrit 36.8 Mean Corpuscular Volume 77.9 Mean Corpuscular Hemoglobin 24.0 Mean Corpuscular Hemoglobin Concent 30.8 Red Cell Distribution Width 16.2 Platelet Count 235 Mean Platelet Volume 7.7 Neutrophils (%) (Auto) 90.3 Lymphocytes (%) (Auto) 6.3 Monocytes (%) (Auto) 3.2 Eosinophils (%) (Auto) 0.0 Basophils (%) (Auto) 0.2 Neutrophils # (Auto) 13.1 Lymphocytes # (Auto) 0.9 Monocytes # (Auto) 0.5 Eosinophils # (Auto) 0.0 Basophils # (Auto) 0.0 CBC Comment DIFF FINAL Differential Comment Prothrombin Time 29.0 Prothromb Time International Ratio 2.9 Blood Urea Nitrogen 28 Creatinine 2.12 Random Glucose 188 Total Protein 6.2 Albumin 2.2 Calcium Level 6.9 Alkaline Phosphatase 126 Aspartate Amino Transf (AST/SGOT) 356 Alanine Aminotransferase (ALT/SGPT) 51 Total Bilirubin 0.6 Sodium Level 142 Potassium Level 3.9 Chloride Level 106 Carbon Dioxide Level 22.9 Anion Gap 13 Estimat Glomerular Filtration Rate 36 Lactic Acid Level 6.0 Protein Corrected Calcium 7.4 Total Creatine Kinase 8490 Creatine Kinase MB 158.3 Creatine Kinase MB % 1.9 Troponin I GREATER THAN 40.00 Blood Gas Puncture Site RT RADIAL Blood Gas Patient Temperature 98.6 Blood Gas HCO3 21 Blood Gas Base Excess -4.5 Blood Gas Oxygen Saturation 95 Arterial Blood pH 7.31 Arterial Blood Partial Pressure CO2 42 Arterial Blood Partial Pressure O2 98 Arterial Blood Oxygen Content 15.2 Arterial Blood Carboxyhemoglobin 0.9 Arterial Blood Methemoglobin 1.0 Blood Gas Hemoglobin 11.3 Oxygen Delivery Device VENTILATOR Blood Gas Ventilator Setting PRVC/ Blood Gas Inspired Oxygen 80 Date/Time Source Procedure Growth Status 09/11/17 10:30 Blood Peripheral Aerobic Blood Culture Pending Received 09/11/17 10:30 Blood Peripheral Anaerobic Blood Culture Pending Received 09/11/17 20:00 Nasal Washing Influenza Types A,B Antigen (LIZ) - Final Positive For Flu A Antigen Complete 09/11/17 20:00 Urine Random Urine Legionella Antigen - Final PRESUMPTIVE NEGATIVE FOR LEGIONELLA P... Complete 09/11/17 20:00 Urine Random Urine Streptococcus pneumoniae Antigen (M - Final PRESUMPTIVE NEGATIVE FOR STREPTOCOCCU... Complete (Nancy Mosley) Result Diagram: 09/12/17 0400 09/12/17 0400 Imaging Last 72 hours Impressions Chest X-Ray 09/11/17 1040 Signed Impressions: Service Date/Time: , September 11, 2017 10:44 - CONCLUSION: 1. Stable ETT. 2. Right subclavian central line in good position without pneumothorax. 3. No significant interval change with continued diffuse airspace disease throughout the left upper to mid lung zones and right perihilar mid to upper lung zones. Sergio Norris MD Head CT 09/11/17 0955 Signed Impressions: Service Date/Time: , September 11, 2017 14:14 - CONCLUSION: No evidence of hemorrhage. Some motion making it difficult to evaluate the schaefer-white differentiation. The sulci are not as prominent as they were in March raise the possibility of intracranial edema Chacorta Gallagher MD Chest X-Ray 09/11/17 0955 Signed Impressions: Service Date/Time: August 10:14 - CONCLUSION: Significant infiltrate throughout the left lung new since January. ET tube in good position. Chacorta Gallagher MD Chest CT 09/11/17 0000 Signed Impressions: Service Date/Time: , September 11, 2017 14:20 - CONCLUSION: Significant airspace disease in the dependent portion of both lungs with very minimal normal lung anteriorly. The combination of ground glass infiltrate in dense areas of consolidation. The dependent distribution certainly aspiration is within the differential. Small right pleural effusion. Tubes and catheters in good position. Dense coronary atherosclerotic disease Chacorta Gallagher MD Abdomen/Pelvis CT 09/11/17 0000 Signed Impressions: Service Date/Time: , September 11, 2017 14:20 - CONCLUSION: Dense infiltrate in both lung bases with this moderate right pleural effusion. Bilateral renal cysts. Dense atherosclerotic disease. Pearson catheter in good position. Small amount of fluid in both inguinal canals. No evidence of bowel obstruction. Chacorta Gallagher MD (Nancy Mosley) Assessment and Plan Assessment and Plan Elevated troponin in the patient with ASHD who was found unresponsive now with septic shock without echocardiogram for LV analysis. EKG negative for acute ischemia. CT chest is remarkable for evidence of CHF, aspiration and pneumonia. Influenza A+. 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 We will not pursue aggressive workup at this time. Pending echocardiogram. His is autoanticoagulated. His daughter lives out of town. Palliative care on board. The patient was seen and evaluated by Dr Koroma who completed face to face encounter, physical exam and participated in evaluation and management. (Nancy Mosley) Assessment and Plan The exam, history, and the medical decision-making described in the above note were completed with the assistance of the mid-level provider. I reviewed and agree with the findings presented. I attest that I had a [id number] encounter with the patient on the same day, and personally performed and documented my assessment and findings in the medical record. Unfortunately, prognosis is very guarded. Dr Klein will see over weekend if needed. Thanks Franci (Nazanin Koroma MD) Nancy Mosley Sep 12, 2017 10:13 Nazanin Koroma MD Sep 12, 2017 15:27
[2017-09-12] MEDS ORDERED: AZITHROMYCIN INJ 500 MG in SODIUM CHLOR 0.9% 250 ML INJ 250 ML IV SCH (11:00)
--- NOTE | 2017-09-12 11:47 | PD.CONS ---
[facility] Service Nephrology Consult Requested By Dr. Prince Reason for Consult Acute Renal Failure Primary Care Physician Unknown History of Present Illness This is a very unfortunate AAM patient. He was found down in his bathroom near vomit. He was intubated by EMS, [place] [facility] [place] PMH listed below, his renal function was normal earlier this year. Information is obtained from medical record. He tested positive for Influenza A, is currently intubated, on 80% FiO2. Troponin is elevated, he has been seen by cardiology. Echo taken today (the tech was able to tell me EF is near 10%). He is markedly hypotensive , lowest BP 50/30, he is on pressors. He is hypothermic, very cold extremities. He is also in rhabdomyolysis, CK peaked at 10,000. No obstruction was noted on imaging. His daughter was called by palliative to explain he is critically ill and is not expected to survive. She is on her way to discuss plan of care and code status. We were consulted for renal management. (Kat Schultz) Review of Systems ROS Limitations: Intubated, Unresponsive (Kat Schultz) Past Family Social History Allergies: Coded Allergies: No Known Allergies (Verified Allergy, Unknown, 09/11/17) Past Medical History Dementia Hypertension Atrial fibrillation PAD CHF Anxiety MVP A fib/flutter ASCVD, hyperlipidemia History of c. Diff Tobacco abuse PAD Past Surgical History CEA Reported Medications Potassium Chloride ER (Potassium Chloride) 20 Meq Tab 20 Meq PO DAILY Lasix (Furosemide) 20 Mg Tab 20 Mg PO DAILY Remeron (Mirtazapine) 15 Mg Tab 7.5 Mg PO HS Xanax (Alprazolam) 0.5 Mg Tab 0.5 Mg PO HS Coumadin (Warfarin) 5 Mg Tab 5 Mg PO DAILY Metoprolol Tartrate 50 Mg Tab 50 Mg PO DAILY Plavix (Clopidogrel Bisulfate) 75 Mg Tab 75 Mg PO DAILY Crestor (Rosuvastatin Calcium) 10 Mg Tab 10 Mg PO DAILY Active Ordered Medications Current Medications Medications (Trade) Dose Ordered Sig/Debbie Route Start Time Stop Time Status Last Admin Fentanyl Citrate 250 ml @ 5 mls/hr TITRATE PRN IV 09/11/17 10:30 09/11/17 21:20 Norepinephrine Bitartrate 250 ml @ 7.5 mls/hr TITRATE PRN IV 09/11/17 10:30 09/12/17 04:08 (NS Flush) 2 ml UNSCH PRN IV FLUSH 09/11/17 11:45 09/12/17 09:02 (Protonix Inj) 40 mg DAILY IV PUSH 09/11/17 15:00 09/12/17 09:02 (Duoneb Neb) 1 ampule Q6HR NEB INH 09/11/17 13:00 09/12/17 07:54 Miscellaneous Information 1 Q361D XX 09/11/17 13:00 (Chlorhexidine 2% Cloth) 3 pack Taper DAILY@04 TOP 09/12/17 04:00 09/08/18 03:59 09/12/17 02:05 (Chlorhexidine 2% Cloth) 3 pack UNSCH PRN TOP 09/11/17 13:00 Pharmacy Profile Note 0 ml @ 0 mls/hr UNSCH OTHER 09/11/17 13:15 Azithromycin 500 mg/Sodium Chloride 250 ml @ 250 mls/hr Q24H IV 09/12/17 11:00 09/12/17 11:13 (SoluCORTEF INJ) 50 mg Q6HR IV PUSH 09/11/17 14:00 09/12/17 05:23 (D50w (Vial) Inj) 50 ml UNSCH PRN IV PUSH 09/11/17 13:15 (Glucagon Inj) 1 mg UNSCH PRN OTHER 09/11/17 13:15 (NovoLIN R SUPPLEMENTAL SCALE) 1 Q4H SQ 09/11/17 14:00 Phenylephrine HCl 40 mg/Dextrose 500 ml @ 30 mls/hr TITRATE PRN IV 09/11/17 13:45 09/12/17 09:15 (Brethine Inj) 1 mg UNSCH PRN SQ 09/11/17 13:45 Sodium Bicarbonate 150 meq/Dextrose 1,150 ml @ 125 mls/hr Q9H12M IV 09/11/17 15:00 09/12/17 09:01 Vancomycin HCl 1000 mg/Sodium Chloride 250 ml @ 250 mls/hr Q24H IV 09/11/17 14:00 Future Hold 09/11/17 17:48 Miscellaneous Information SPECIFIC LAB TO BE DRAWN:VANCOMYCIN TROUGH DATE TO... ONCE ONCE .XX 09/14/17 13:45 09/14/17 13:46 Piperacillin Sod/ Tazobactam Sod 50 ml @ 100 mls/hr Q8H IV 09/11/17 15:00 09/12/17 05:23 (Tamiflu Liq) 75 mg BID PO 09/12/17 00:45 09/12/17 09:01 (Aspirin Chew) 81 mg DAILY CHEW 09/12/17 09:00 09/12/17 09:02 Family History Unable to obtain Social History Unable to obtain (Kat Schultz) Physical Exam Vital Signs Vital Signs Date Time Temp Pulse Resp B/P (MAP) Pulse Ox O2 Delivery O2 Flow Rate FiO2 09/12/17 10:00 95 09/12/17 09:15 97 85/60 09/12/17 08:00 96 09/12/17 08:00 80 09/12/17 08:00 98.2 96 24 98/56 (70) 100 09/12/17 07:50 100 80 09/12/17 06:00 92 09/12/17 06:00 98.0 92 24 90/66 (74) 100 09/12/17 05:30 95 92/71 09/12/17 05:30 95 92/71 09/12/17 05:24 93 94/69 09/12/17 05:00 98.0 96 24 95/72 (80) 100 09/12/17 04:45 98 100/65 09/12/17 04:30 98 109/61 09/12/17 04:08 100 113/2 09/12/17 04:00 100 09/12/17 04:00 100 09/12/17 04:00 97.9 100 24 113/72 (86) 98 09/12/17 03:45 100 106/77 09/12/17 03:45 100 106/77 09/12/17 03:30 102 112/71 09/12/17 03:04 95 100 09/12/17 03:00 98.0 100 24 107/77 (87) 97 09/12/17 03:00 99 107/77 09/12/17 02:30 96 110/75 09/12/17 02:15 100 115/78 09/12/17 02:15 100 115/78 09/12/17 02:00 98.3 97 24 110/76 (87) 96 09/12/17 02:00 97 12/22/17 02:00 100 110/76 09/12/17 01:45 98 109/73 09/12/17 01:29 101 103/71 09/12/17 01:10 102 100/72 09/12/17 01:00 98.8 104 24 100/72 (81) 98 09/12/17 00:15 103 106/71 09/12/17 00:03 104 104/72 09/12/17 00:00 100 09/12/17 00:00 103 09/12/17 00:00 99.5 105 24 104/72 (83) 95 09/11/17 23:54 104 104/72 09/11/17 23:24 108 106/69 09/11/17 23:23 97 100 09/11/17 23:09 110 105/64 09/11/17 23:00 110 09/11/17 23:00 100.0 110 24 105/64 (78) 100 09/11/17 22:30 112 103/70 09/11/17 22:11 112 100/71 09/11/17 22:00 113 09/11/17 22:00 100.0 113 24 100/71 (81) 98 09/11/17 21:00 99.2 108 23 99/65 (76) 100 09/11/17 20:38 88 100 09/11/17 20:00 102 09/11/17 20:00 100 09/11/17 20:00 98.0 102 21 96/75 (82) 100 09/11/17 19:49 101 93/73 09/11/17 19:15 97.3 100 20 93/66 (75) 09/11/17 19:00 97.3 99 18 97/66 (76) 96 09/11/17 19:00 99 97/66 09/11/17 19:00 99 97/66 09/11/17 18:52 98/73 09/11/17 18:45 97.2 101 20 98/73 (81) 86 09/11/17 18:30 97.2 100 23 107/66 (80) 96 09/11/17 18:15 97.0 100 24 108/61 (77) 89 09/11/17 18:00 96.8 99 23 09/11/17 17:45 96.6 100 24 95/68 (77) 09/11/17 17:31 96.4 98 24 93/54 (67) 09/11/17 17:15 96.3 100 24 91/62 (72) 09/11/17 17:00 96.1 98 24 89/67 (74) 09/11/17 16:45 95.9 99 23 86/71 (76) 09/11/17 16:30 95.7 98 23 81/62 (68) 09/11/17 16:23 0 100 09/11/17 16:15 95.7 98 23 85/61 (69) 09/11/17 16:01 95.7 99 24 80/52 (61) 09/11/17 16:00 95.7 98 24 09/11/17 15:47 68/49 09/11/17 15:45 95.7 94 14 68/49 (55) 09/11/17 15:40 0 100 09/11/17 15:31 95.9 96 13 66/31 (43) 09/11/17 15:17 95.9 94 17 68/35 (46) 09/11/17 15:00 96 58/38 09/11/17 14:45 71 100 09/11/17 14:43 96 15 75/39 (51) 09/11/17 14:15 100 09/11/17 13:52 88 19 144/66 (92) 09/11/17 13:14 95.5 84 20 58/32 (41) 94 09/11/17 12:38 100 45/20 (28) 09/11/17 12:35 95.3 09/11/17 12:05 103 21 63/25 (38) 96 09/11/17 11:42 160 20 97/44 (61) 97 Auto-Vent 09/11/17 11:30 0 100 Physical Exam Elderly AAM lying in bed, unresponsive on vent ETT, TLC right IJ Lungs clear, decreased in bases, vented lung sounds S1/S2, irreg irreg Abdomen flat, soft, normal bowel sounds Ext: trace edema x [address], no scrotal edema, oliguric Laboratory Laboratory Tests Test 09/11/17 15:15 09/11/17 15:17 09/11/17 15:25 09/11/17 15:53 Prothrombin Time 22.6 Prothromb Time International Ratio 2.2 Blood Gas Puncture Site RT RADIAL Blood Gas Patient Temperature 98.6 Blood Gas HCO3 15 Blood Gas Base Excess -12.5 Blood Gas Oxygen Saturation 64 Arterial Blood pH 7.11 Arterial Blood Partial Pressure CO2 50 Arterial Blood Partial Pressure O2 50 Arterial Blood Oxygen Content 9.9 Arterial Blood Carboxyhemoglobin 0.4 Arterial Blood Methemoglobin 1.0 Blood Gas Hemoglobin 11.0 Oxygen Delivery Device VENTILATOR Blood Gas Ventilator Setting PRVC/AC Blood Gas Inspired Oxygen 100 Total Creatine Kinase 6878 Creatine Kinase MB 111.2 Creatine Kinase MB % 1.6 Troponin I 19.70 Lactic Acid Level 8.8 Test 09/11/17 17:00 09/11/17 18:33 09/11/17 19:56 09/11/17 22:41 Nasal Screen MRSA (PCR) MRSA NOT DETECTED White Blood Count 11.2 Red Blood Count 4.51 Hemoglobin 10.9 Hematocrit 35.3 Mean Corpuscular Volume 78.3 Mean Corpuscular Hemoglobin 24.3 Mean Corpuscular Hemoglobin Concent 31.0 Red Cell Distribution Width 16.0 Platelet Count 289 Mean Platelet Volume 7.5 Neutrophils (%) (Auto) 88.5 Lymphocytes (%) (Auto) 7.4 Monocytes (%) (Auto) 3.9 Eosinophils (%) (Auto) 0.0 Basophils (%) (Auto) 0.2 Neutrophils # (Auto) 9.9 Lymphocytes # (Auto) 0.8 Monocytes # (Auto) 0.4 Eosinophils # (Auto) 0.0 Basophils # (Auto) 0.0 CBC Comment DIFF FINAL Differential Comment Blood Urea Nitrogen 22 Creatinine 1.69 Random Glucose 178 Total Protein 6.2 Calcium Level 6.3 Sodium Level 147 Potassium Level 3.8 Chloride Level 115 Carbon Dioxide Level 22.5 Anion Gap 10 Estimat Glomerular Filtration Rate 47 Protein Corrected Calcium 6.7 Blood Gas Puncture Site LT FEMORAL Blood Gas Patient Temperature 98.6 Blood Gas HCO3 17 Blood Gas Base Excess -9.8 Blood Gas Oxygen Saturation 86 Arterial Blood pH 7.21 Arterial Blood Partial Pressure CO2 43 Arterial Blood Partial Pressure O2 68 Arterial Blood Oxygen Content 14.0 Arterial Blood Carboxyhemoglobin 0.6 Arterial Blood Methemoglobin 1.0 Blood Gas Hemoglobin 11.5 Oxygen Delivery Device VENTILATOR Blood Gas Ventilator Setting PRVC / AC / Blood Gas Inspired Oxygen 100 Lactic Acid Level 6.1 Total Creatine Kinase 9730 Creatine Kinase MB 158.7 Creatine Kinase MB % 1.6 Troponin I GREATER THAN 40.00 Test 09/12/17 04:00 09/12/17 08:55 White Blood Count 14.5 Red Blood Count 4.72 Hemoglobin 11.3 Hematocrit 36.8 Mean Corpuscular Volume 77.9 Mean Corpuscular Hemoglobin 24.0 Mean Corpuscular Hemoglobin Concent 30.8 Red Cell Distribution Width 16.2 Platelet Count 235 Mean Platelet Volume 7.7 Neutrophils (%) (Auto) 90.3 Lymphocytes (%) (Auto) 6.3 Monocytes (%) (Auto) 3.2 Eosinophils (%) (Auto) 0.0 Basophils (%) (Auto) 0.2 Neutrophils # (Auto) 13.1 Lymphocytes # (Auto) 0.9 Monocytes # (Auto) 0.5 Eosinophils # (Auto) 0.0 Basophils # (Auto) 0.0 CBC Comment DIFF FINAL Differential Comment Prothrombin Time 29.0 Prothromb Time International Ratio 2.9 Blood Urea Nitrogen 28 Creatinine 2.12 Random Glucose 188 Total Protein 6.2 Albumin 2.2 Calcium Level 6.9 Alkaline Phosphatase 126 Aspartate Amino Transf (AST/SGOT) 356 Alanine Aminotransferase (ALT/SGPT) 51 Total Bilirubin 0.6 Sodium Level 142 Potassium Level 3.9 Chloride Level 106 Carbon Dioxide Level 22.9 Anion Gap 13 Estimat Glomerular Filtration Rate 36 Lactic Acid Level 6.0 Protein Corrected Calcium 7.4 Total Creatine Kinase 8490 Creatine Kinase MB 158.3 Creatine Kinase MB % 1.9 Troponin I GREATER THAN 40.00 Blood Gas Puncture Site RT RADIAL Blood Gas Patient Temperature 98.6 Blood Gas HCO3 21 Blood Gas Base Excess -4.5 Blood Gas Oxygen Saturation 95 Arterial Blood pH 7.31 Arterial Blood Partial Pressure CO2 42 Arterial Blood Partial Pressure O2 98 Arterial Blood Oxygen Content 15.2 Arterial Blood Carboxyhemoglobin 0.9 Arterial Blood Methemoglobin 1.0 Blood Gas Hemoglobin 11.3 Oxygen Delivery Device VENTILATOR Blood Gas Ventilator Setting PRVC/AC Blood Gas Inspired Oxygen 80 Date/Time Source Procedure Growth Status 09/11/17 10:30 Blood Peripheral Aerobic Blood Culture - Preliminary NO GROWTH IN 1 DAY Resulted 09/11/17 10:30 Blood Peripheral Anaerobic Blood Culture - Preliminary NO GROWTH IN 1 DAY Resulted 09/11/17 20:00 Nasal Washing Influenza Types A,B Antigen (LIZ) - Final Positive For Flu A Antigen Complete 09/11/17 20:00 Urine Random Urine Legionella Antigen - Final PRESUMPTIVE NEGATIVE FOR LEGIONELLA P... Complete 09/11/17 20:00 Urine Random Urine Streptococcus pneumoniae Antigen (M - Final PRESUMPTIVE NEGATIVE FOR STREPTOCOCCU... Complete (Kat Schultz) Result Diagram: 09/12/17 0400 09/12/17 0400 Imaging Last 72 hours Impressions Chest X-Ray 09/11/17 1040 Signed Impressions: Service Date/Time: August 10:44 - CONCLUSION: 1. Stable ETT. 2. Right subclavian central line in good position without pneumothorax. 3. No significant interval change with continued diffuse airspace disease throughout the left upper to mid lung zones and right perihilar mid to upper lung zones. Sergio Norris MD Head CT 09/11/17 0955 Signed Impressions: Service Date/Time: , September 11, 2017 14:14 - CONCLUSION: No evidence of hemorrhage. Some motion making it difficult to evaluate the schaefer-white differentiation. The sulci are not as prominent as they were in March raise the possibility of intracranial edema Chacorta Gallagher MD Chest X-Ray 09/11/17 0955 Signed Impressions: Service Date/Time: , September 11, 2017 10:14 - CONCLUSION: Significant infiltrate throughout the left lung new since January. ET tube in good position. Chacorta Gallagher MD Chest CT 09/11/17 0000 Signed Impressions: Service Date/Time: , September 11, 2017 14:20 - CONCLUSION: Significant airspace disease in the dependent portion of both lungs with very minimal normal lung anteriorly. The combination of ground glass infiltrate in dense areas of consolidation. The dependent distribution certainly aspiration is within the differential. Small right pleural effusion. Tubes and catheters in good position. Dense coronary atherosclerotic disease Chacorta Gallagher MD Abdomen/Pelvis CT 09/11/17 0000 Signed Impressions: Service Date/Time: , September 11, 2017 14:20 - CONCLUSION: Dense infiltrate in both lung bases with this moderate right pleural effusion. Bilateral renal cysts. Dense atherosclerotic disease. Pearson catheter in good position. Small amount of fluid in both inguinal canals. No evidence of bowel obstruction. Chacorta Gallagher MD (Kat Schultz) Assessment and Plan Problem List: (1) YG (acute kidney injury) ICD Codes: N17.9 - Acute kidney failure, unspecified Status: Resolved Plan: His renal function is normal at baseline, creatinine runs around 1 YG multifactorial: hypoperfusion injury from sepsis and hypotension, also rhabdomyolysis evidenced by elevated CK levels He likely suffered NSTEMI and has CHF, EF 10%. He is oliguric, very poor prognosis Too unstable for dialysis currently, dialysis will not change the outcome Palliative is following, daughter to fly in and make a decision regarding converting to comfort measures At this time he is on bicarb gtt (D5 with 150 mEq @ 150 cc/hr), acidosis improved, change IVF to 1/2 NS @ 75 cc/hr due to EF at 10% Imaging does not show obstruction Follow urine output renally dose medications to renal status. Repeat labs in AM (2) Rhabdomyolysis ICD Codes: M62.82 - Rhabdomyolysis Plan: Cautious IVF, serial CK monitoring , it has peaked and began to improve (3) Elevated troponin ICD Codes: R74.8 - Abnormal levels of other serum enzymes Plan: Cardiology has evaluated Due to multi organ failure invasive work up is not planned Continue supportive measures (4) Septic shock ICD Codes: A41.9 - Sepsis, unspecified organism; R65.21 - Severe sepsis with septic shock Status: Acute Plan: He is on zosyn, given vancomycin Lactic acid of 8 Pancultured, he is Flu positive Continue pressure support (5) Influenza A ICD Codes: J10.1 - Influenza due to other identified influenza virus with other respiratory manifestations Plan: On Tamiflu (6) Hypocalcemia ICD Codes: E83.51 - Hypocalcemia Plan: PCC 7.4 Check vitamin D, PTH Replacement ordered IV (Kat Schultz) Assessment and Plan Patient before I was able to see him. (Gustavo Broussard MD) Kat Schultz Sep 12, 2017 11:47 Gustavo Broussard MD Sep 13, 2017 05:23
--- NOTE | 2017-09-12 11:59 | HHI.IDPN ---
Subjective Subjective Remarks doing poorly on Vent 80% Minimal UOP Flu test positive EF 10% Antibiotics azithro zosyn Allergies: Coded Allergies: No Known Allergies (Verified Allergy, Unknown, 09/11/17) Objective . Vital Signs Date Time Temp Pulse Resp B/P (MAP) Pulse Ox O2 Delivery O2 Flow Rate FiO2 09/12/17 10:00 95 09/12/17 09:15 97 85/60 09/12/17 08:00 96 09/12/17 08:00 80 09/12/17 08:00 98.2 96 24 98/56 (70) 100 09/12/17 07:50 100 80 09/12/17 06:00 92 09/12/17 06:00 98.0 92 24 90/66 (74) 100 09/12/17 05:30 95 92/71 09/12/17 05:30 95 92/71 09/12/17 05:24 93 94/69 09/12/17 05:00 98.0 96 24 95/72 (80) 100 09/12/17 04:45 98 100/65 09/12/17 04:30 98 109/61 09/12/17 04:08 100 113/2 09/12/17 04:00 100 09/12/17 04:00 100 09/12/17 04:00 97.9 100 24 113/72 (86) 98 09/12/17 03:45 100 106/77 09/12/17 03:45 100 106/77 09/12/17 03:30 102 112/71 09/12/17 03:04 95 100 09/12/17 03:00 98.0 100 24 107/77 (87) 97 09/12/17 03:00 99 107/77 09/12/17 02:30 96 110/75 09/12/17 02:15 100 115/78 09/12/17 02:15 100 115/78 09/12/17 02:00 98.3 97 24 110/76 (87) 96 09/12/17 02:00 97 09/12/17 02:00 100 110/76 09/12/17 01:45 98 109/73 09/12/17 01:29 101 103/71 09/12/17 01:10 102 100/72 09/12/17 01:00 98.8 104 24 100/72 (81) 98 12/22/17 00:15 103 106/71 09/12/17 00:03 104 104/72 09/12/17 00:00 100 09/12/17 00:00 103 09/12/17 00:00 99.5 105 24 104/72 (83) 95 09/11/17 23:54 104 104/72 09/11/17 23:24 108 106/69 09/11/17 23:23 97 100 09/11/17 23:09 110 105/64 09/11/17 23:00 110 09/11/17 23:00 100.0 110 24 105/64 (78) 100 09/11/17 22:30 112 103/70 09/11/17 22:11 112 100/71 09/11/17 22:00 113 09/11/17 22:00 100.0 113 24 100/71 (81) 98 09/11/17 21:00 99.2 108 23 99/65 (76) 100 09/11/17 20:38 88 100 09/11/17 20:00 102 09/11/17 20:00 100 09/11/17 20:00 98.0 102 21 96/75 (82) 100 09/11/17 19:49 101 93/73 09/11/17 19:15 97.3 100 20 93/66 (75) 09/11/17 19:00 97.3 99 18 97/66 (76) 96 09/11/17 19:00 99 97/66 09/11/17 19:00 99 97/66 09/11/17 18:52 98/73 09/11/17 18:45 97.2 101 20 98/73 (81) 86 09/11/17 18:30 97.2 100 23 107/66 (80) 96 09/11/17 18:15 97.0 100 24 108/61 (77) 89 09/11/17 18:00 96.8 99 23 09/11/17 17:45 96.6 100 24 95/68 (77) 09/11/17 17:31 96.4 98 24 93/54 (67) 09/11/17 17:15 96.3 100 24 91/62 (72) 09/11/17 17:00 96.1 98 24 89/67 (74) 09/11/17 16:45 95.9 99 23 86/71 (76) 09/11/17 16:30 95.7 98 23 81/62 (68) 09/11/17 16:23 0 100 09/11/17 16:15 95.7 98 23 85/61 (69) 09/11/17 16:01 95.7 99 24 80/52 (61) 09/11/17 16:00 95.7 98 24 09/11/17 15:47 68/49 09/11/17 15:45 95.7 94 14 68/49 (55) 09/11/17 15:40 0 100 09/11/17 15:31 95.9 96 13 66/31 (43) 09/11/17 15:17 95.9 94 17 68/35 (46) 09/11/17 15:00 96 58/38 09/11/17 14:45 71 100 09/11/17 14:43 96 15 75/39 (51) 09/11/17 14:15 100 09/11/17 13:52 88 19 144/66 (92) 09/11/17 13:14 95.5 84 20 58/32 (41) 94 09/11/17 12:38 100 45/20 (28) 09/11/17 12:35 95.3 09/11/17 12:05 103 21 63/25 (38) 96 09/12/17 09/12/17 09/13/17 15:00 23:00 07:00 Intake Total 809 ml Balance 809 ml Intake IV Total 809 ml . Laboratory Tests Test 09/11/17 10:20 09/11/17 18:33 09/12/17 04:00 White Blood Count 12.5 TH/MM3 11.2 TH/MM3 14.5 TH/MM3 Red Blood Count 5.38 MIL/MM3 4.51 MIL/MM3 4.72 MIL/MM3 Hemoglobin 12.7 GM/DL 10.9 GM/DL 11.3 GM/DL Hematocrit 42.0 % 35.3 % 36.8 % Mean Corpuscular Volume 78.0 FL 78.3 FL 77.9 FL Mean Corpuscular Hemoglobin 23.7 PG 24.3 PG 24.0 PG Mean Corpuscular Hemoglobin Concent 30.3 % 31.0 % 30.8 % Red Cell Distribution Width 15.9 % 16.0 % 16.2 % Platelet Count 318 TH/MM3 289 TH/MM3 235 TH/MM3 Mean Platelet Volume 7.8 FL 7.5 FL 7.7 FL Neutrophils (%) (Auto) 71.9 % 88.5 % 90.3 % Lymphocytes (%) (Auto) 18.8 % 7.4 % 6.3 % Monocytes (%) (Auto) 8.8 % 3.9 % 3.2 % Eosinophils (%) (Auto) 0.0 % 0.0 % 0.0 % Basophils (%) (Auto) 0.5 % 0.2 % 0.2 % Neutrophils # (Auto) 8.9 TH/MM3 9.9 TH/MM3 13.1 TH/MM3 Lymphocytes # (Auto) 2.3 TH/MM3 0.8 TH/MM3 0.9 TH/MM3 Monocytes # (Auto) 1.1 TH/MM3 0.4 TH/MM3 0.5 TH/MM3 Eosinophils # (Auto) 0.0 TH/MM3 0.0 TH/MM3 0.0 TH/MM3 Basophils # (Auto) 0.1 TH/MM3 0.0 TH/MM3 0.0 TH/MM3 CBC Comment DIFF FINAL DIFF FINAL DIFF FINAL Differential Comment Laboratory Tests Test 09/11/17 10:20 09/11/17 15:25 09/11/17 15:53 09/11/17 18:33 Blood Urea Nitrogen 24 MG/DL 22 MG/DL Creatinine 1.55 MG/DL 1.69 MG/DL Random Glucose 132 MG/DL 178 MG/DL Total Protein 8.0 GM/DL 6.2 GM/DL Albumin 2.9 GM/DL Calcium Level 8.5 MG/DL 6.3 MG/DL Magnesium Level 2.1 MG/DL Alkaline Phosphatase 158 U/L Aspartate Amino Transf (AST/SGOT) 93 U/L Alanine Aminotransferase (ALT/SGPT) 26 U/L Total Bilirubin 0.7 MG/DL Sodium Level 144 MEQ/L 147 MEQ/L Potassium Level 5.0 MEQ/L 3.8 MEQ/L Chloride Level 110 MEQ/L 115 MEQ/L Carbon Dioxide Level 19.2 MEQ/L 22.5 MEQ/L Anion Gap 15 MEQ/L 10 MEQ/L Estimat Glomerular Filtration Rate 52 ML/MIN 47 ML/MIN Lactic Acid Level 8.6 mmol/L 8.8 mmol/L Total Creatine Kinase 2129 U/L 6878 U/L Creatine Kinase MB 40.9 NG/ML 111.2 NG/ML Creatine Kinase MB % 1.9 % 1.6 % Troponin I 4.50 NG/ML 19.70 NG/ML Protein Corrected Calcium 6.7 MG/DL Test 09/11/17 22:41 09/12/17 04:00 Lactic Acid Level 6.1 mmol/L 6.0 mmol/L Total Creatine Kinase 9730 U/L 8490 U/L Creatine Kinase MB 158.7 NG/ML 158.3 NG/ML Creatine Kinase MB % 1.6 % 1.9 % Troponin I GREATER THAN 40.00 NG/ML GREATER THAN 40.00 NG/ML Blood Urea Nitrogen 28 MG/DL Creatinine 2.12 MG/DL Random Glucose 188 MG/DL Total Protein 6.2 GM/DL Albumin 2.2 GM/DL Calcium Level 6.9 MG/DL Alkaline Phosphatase 126 U/L Aspartate Amino Transf (AST/SGOT) 356 U/L Alanine Aminotransferase (ALT/SGPT) 51 U/L Total Bilirubin 0.6 MG/DL Sodium Level 142 MEQ/L Potassium Level 3.9 MEQ/L Chloride Level 106 MEQ/L Carbon Dioxide Level 22.9 MEQ/L Anion Gap 13 MEQ/L Estimat Glomerular Filtration Rate 36 ML/MIN Protein Corrected Calcium 7.4 MG/DL Microbiology Date/Time Source Procedure Growth Status 09/11/17 10:30 Blood Peripheral Aerobic Blood Culture - Preliminary NO GROWTH IN 1 DAY Resulted 09/11/17 10:30 Blood Peripheral Anaerobic Blood Culture - Preliminary NO GROWTH IN 1 DAY Resulted 09/11/17 10:20 Blood Peripheral Aerobic Blood Culture - Preliminary NO GROWTH IN 1 DAY Resulted 09/11/17 10:20 Blood Peripheral Anaerobic Blood Culture - Preliminary NO GROWTH IN 1 DAY Resulted 09/11/17 20:00 Nasal Washing Influenza Types A,B Antigen (LIZ) - Final Positive For Flu A Antigen Complete 09/11/17 19:30 Sputum Endotracheal Gram Stain - Final Resulted 09/11/17 19:30 Sputum Endotracheal Sputum Culture - Preliminary RARE GROWTH NORMAL RESPIRATORY [place] ... Resulted 09/11/17 20:00 Urine Random Urine Legionella Antigen - Final PRESUMPTIVE NEGATIVE FOR LEGIONELLA P... Complete 09/11/17 20:00 Urine Random Urine Streptococcus pneumoniae Antigen (M - Final PRESUMPTIVE NEGATIVE FOR STREPTOCOCCU... Complete 09/11/17 10:27 Urine Catheterized Urine Legionella Antigen - Final PRESUMPTIVE NEGATIVE FOR LEGIONELLA P... Complete 09/11/17 10:27 Urine Catheterized Urine Streptococcus pneumoniae Antigen (M - Final PRESUMPTIVE NEGATIVE FOR STREPTOCOCCU... Complete Imaging Last Impressions Chest X-Ray 09/11/17 1040 Signed Impressions: Service Date/Time: , September 11, 2017 10:44 - CONCLUSION: 1. Stable ETT. 2. Right subclavian central line in good position without pneumothorax. 3. No significant interval change with continued diffuse airspace disease throughout the left upper to mid lung zones and right perihilar mid to upper lung zones. Sergio Norris MD Head CT 09/11/17 0955 Signed Impressions: Service Date/Time: , September 11, 2017 14:14 - CONCLUSION: No evidence of hemorrhage. Some motion making it difficult to evaluate the schaefer-white differentiation. The sulci are not as prominent as they were in March raise the possibility of intracranial edema Chacorta Gallagher MD Chest CT 09/11/17 0000 Signed Impressions: Service Date/Time: , September 11, 2017 14:20 - CONCLUSION: Significant airspace disease in the dependent portion of both lungs with very minimal normal lung anteriorly. The combination of ground glass infiltrate in dense areas of consolidation. The dependent distribution certainly aspiration is within the differential. Small right pleural effusion. Tubes and catheters in good position. Dense coronary atherosclerotic disease Chacorta Gallagher MD Abdomen/Pelvis CT 09/11/17 0000 Signed Impressions: Service Date/Time: , September 11, 2017 14:20 - CONCLUSION: Dense infiltrate in both lung bases with this moderate right pleural effusion. Bilateral renal cysts. Dense atherosclerotic disease. Pearson catheter in good position. Small amount of fluid in both inguinal canals. No evidence of bowel obstruction. Chacorta Gallagher MD Physical Exam CONSTITUTIONAL/GENERAL: This is an adequately nourished patient, in no apparent distress. On vent TUBES/LINES/DRAINS: SKIN: No jaundice, rashes, or lesions. Ecchymoses on upper extremities. No wounds seen anteriorly. Skin temperature appropriate. Not diaphoretic. EYES: Pupils equal and round and reactive. Extraocular motions intact. + mild scleral icterus. No injection or drainage. Fundi not examined. ENT: Hearing not tested. Nose without bleeding or purulent drainage. Throat without visible erythema, exudates, masses, or lesions. CARDIOVASCULAR: Regular rate and rhythm without murmurs, gallops, or rubs. No JVD. Peripheral pulses symmetric. Perfusion decresed RESPIRATORY/CHEST: Symmetric, unlabored respirations. Diffuse rhonchi to auscultation. Breath sounds equal bilaterally. GASTROINTESTINAL: Abdomen soft, non-tender, nondistended. No hepato-splenomegaly , or palpable masses. No guarding. Bowel sounds not audible GENITOURINARY: Without palpable bladder distension. Pearson catheter in place, minimal dark cloudy urine MUSCULOSKELETAL: Extremities without clubbing, cyanosis, or edema. No joint tenderness or effusion noted. No calf tenderness. No mottling or clubbing. LYMPHATICS: No palpable cervical or supraclavicular adenopathy. NEUROLOGICAL:comatose. unresponsive PSYCHIATRIC: unable to assess Assessment & Plan Remarks Severe sepsis, shock PNA, influenza Acute VDRF Circulatory collapse NSTEMI Critically ill and unstable with very poor prognosis cont current abx (vanco, zosyb) cont azithromycin - cont Tamiflu fu blood and sputum clx dw Uma Rodrigues MD Sep 12, 2017 11:59
[2017-09-12] MEDS ORDERED: SODIUM CHLOR 0.45% 1000 ML INJ 1,000 ML IV SCH (12:00)
[2017-09-12] MEDS ORDERED: EPINEPHrine 2 MG/D5W 250 ML IV PRN ×2 (12:45)
[2017-09-12] MEDS ORDERED: VASOPRESSIN INJ 40 UNITS in DEXTROSE 5% IN WATER 100ML INJ 98 ML IV SCH ×2 (12:46)
[2017-09-12] MEDS ORDERED: SODIUM BICARBONATE 8.4% INJ 50 MEQ/50 ML SYR ONE ×3 (13:03→14:51)
[2017-09-12] MEDS ORDERED: CALCIUM CHLORIDE 10% SOLN 1 GRAM/10 ML SYR ONE (13:07)
--- NOTE | 2017-09-12 14:00 | HHI.HCPN ---
Reason for visit a. To assist with evaluation and management of symptoms including: Shortness of breath, debility. b. To assist medical decision maker(s) with: better understanding of current medical conditions; weighing benefits/burdens of medical treatment options; making medical treatment decisions. . Subjective/Interval History Patient seen in medical ICU. Patient clinical condition progressively deteriorating, s/p 2 cardiac arrests requiring CPR, ACLS drugs and defibrillation. Remains in very critical condition, not anticipated to survive. Worsening renal function, nephrology consulted. Cardiology consulted, eco revealing EF of 10%. Several telephone conversations with patient's daughter Vanita Dumont to update her on pt's worsening condition. Reviewed at length risks, benefits and limitations of CPR given patient's condition. Compassionate withdrawal life support/transition to comfort-directed care introduced. Family electing to continue aggressive management to include continuation of FULL code. Dr. Arizmendi gave medical update to daughter via telephone. Daughter in route from [place], [place] and son Bryon in route from [place]. Family made aware of patient's worsening condition, not anticipated to survive the next 24hs. Family verbalized understanding. Patient's brother Ady Tomlinson present visiting patient. Ongoing emotional support and active listening provided. Case discussed in great detail with Dr. Arizmendi and bedside RN Graciela. . Family/friend interactions See interval note. . Advance Directives Living Will: Never completed Health Care Surrogate: Never completed Durable Power of Operator Maintainer: Completed, but not made available Advance Directive Specifics Health Care Surrogate(s): No living will or designation of healthcare surrogate completed. As per [place] statute, healthcare proxy decision-making falls to the majority of patient's 3 children. . Documented care wishes: No living will completed. . Significant change in goals: Family electing to continue aggressive management. . Objective Vital Signs Date Time Temp Pulse Resp B/P (MAP) Pulse Ox O2 Delivery O2 Flow Rate FiO2 09/12/17 10:00 95 09/12/17 09:15 97 85/60 09/12/17 08:00 96 09/12/17 08:00 80 09/12/17 08:00 98.2 96 24 98/56 (70) 100 09/12/17 07:50 100 80 09/12/17 06:00 92 09/12/17 06:00 98.0 92 24 90/66 (74) 100 12/22/17 05:30 95 92/71 09/12/17 05:30 95 92/71 09/12/17 05:24 93 94/69 09/12/17 05:00 98.0 96 24 95/72 (80) 100 09/12/17 04:45 98 100/65 09/12/17 04:30 98 109/61 09/12/17 04:08 100 113/2 09/12/17 04:00 100 09/12/17 04:00 100 09/12/17 04:00 97.9 100 24 113/72 (86) 98 09/12/17 03:45 100 106/77 09/12/17 03:45 100 106/77 09/12/17 03:30 102 112/71 09/12/17 03:04 95 100 09/12/17 03:00 98.0 100 24 107/77 (87) 97 09/12/17 03:00 99 107/77 09/12/17 02:30 96 110/75 09/12/17 02:15 100 115/78 09/12/17 02:15 100 115/78 09/12/17 02:00 98.3 97 24 110/76 (87) 96 09/12/17 02:00 97 09/12/17 02:00 100 110/76 09/12/17 01:45 98 109/73 09/12/17 01:29 101 103/71 09/12/17 01:10 102 100/72 09/12/17 01:00 98.8 104 24 100/72 (81) 98 09/12/17 00:15 103 106/71 09/12/17 00:03 104 104/72 09/12/17 00:00 100 09/12/17 00:00 103 09/12/17 00:00 99.5 105 24 104/72 (83) 95 09/11/17 23:54 104 104/72 09/11/17 23:24 108 106/69 09/11/17 23:23 97 100 09/11/17 23:09 110 105/64 09/11/17 23:00 110 09/11/17 23:00 100.0 110 24 105/64 (78) 100 17 22:30 112 103/70 09/11/17 22:11 112 100/71 09/11/17 22:00 113 09/11/17 22:00 100.0 113 24 100/71 (81) 98 09/11/17 21:00 99.2 108 23 99/65 (76) 100 09/11/17 20:38 88 100 09/11/17 20:00 102 09/11/17 20:00 100 09/11/17 20:00 98.0 102 21 96/75 (82) 100 09/11/17 19:49 101 93/73 09/11/17 19:15 97.3 100 20 93/66 (75) 09/11/17 19:00 97.3 99 18 97/66 (76) 96 09/11/17 19:00 99 97/66 09/11/17 19:00 99 97/66 09/11/17 18:52 98/73 09/11/17 18:45 97.2 101 20 98/73 (81) 86 09/11/17 18:30 97.2 100 23 107/66 (80) 96 09/11/17 18:15 97.0 100 24 108/61 (77) 89 09/11/17 18:00 96.8 99 23 09/11/17 17:45 96.6 100 24 95/68 (77) 09/11/17 17:31 96.4 98 24 93/54 (67) 09/11/17 17:15 96.3 100 24 91/62 (72) 09/11/17 17:00 96.1 98 24 89/67 (74) 09/11/17 16:45 95.9 99 23 86/71 (76) 09/11/17 16:30 95.7 98 23 81/62 (68) 09/11/17 16:23 0 100 09/11/17 16:15 95.7 98 23 85/61 (69) 09/11/17 16:01 95.7 99 24 80/52 (61) 09/11/17 16:00 95.7 98 24 09/11/17 15:47 68/49 09/11/17 15:45 95.7 94 14 68/49 (55) 09/11/17 15:40 0 100 09/11/17 15:31 95.9 96 13 66/31 (43) 09/11/17 15:17 95.9 94 17 68/35 (46) 09/11/17 15:00 96 58/38 09/11/17 14:45 71 100 09/11/17 14:43 96 15 75/39 (51) 09/11/17 14:15 100 09/11/17 13:52 88 19 144/66 (92) Intake & Output 09/12/17 09/12/17 07:00 19:00 Intake Total 5403 ml 809 ml Output Total 200 ml Balance 5203 ml 809 ml Intake IV Total 5343 ml 809 ml Other 60 ml Output Urine Total 50 ml Gastric Drainage Total 150 ml # Bowel Movements 0 Physical Exam CONSTITUTIONAL/GENERAL: This is a frail, thin elderly male resting in bed in no acute distress. TUBES/LINES/DRAINS: ETT, OG. central line, Pearson catheter. SKIN: No jaundice, rashes, or lesions. No wounds seen anteriorly. Skin temperature appropriate. Not diaphoretic. Dry skin on lower extremities. HEAD: Atraumatic. Normocephalic. EYES: Pupils sluggish. No scleral icterus. No injection or drainage. Fundi not examined. ENT: Unable to evaluate hearing secondary to clinical condition. Nose without bleeding or purulent drainage. Moist oral mucosa. NECK: Trachea midline. Supple. CARDIOVASCULAR: Irregular rate and rhythm without murmurs. Week pedal pulses bilaterally. RESPIRATORY/CHEST: Symmetric, unlabored respirations. Expiratory crackles bilaterally. Abdominal breathing on ventilator support noted. GASTROINTESTINAL: Abdomen soft, non-tender, nondistended. Bowel sounds present. GENITOURINARY: Without palpable bladder distension. Pearson catheter in place. MUSCULOSKELETAL: Extremities without clubbing, cyanosis, or edema. No mottling or clubbing. Muscle wasting to all 4 extremities. NEUROLOGICAL: Comatose. PSYCHIATRIC: Unable to evaluate giving clinical condition. . Diagnostic Tests Laboratory Laboratory Tests Test 09/11/17 09:55 09/11/17 10:20 09/11/17 10:27 09/11/17 10:45 Blood Gas Puncture Site RT RADIAL RT RADIAL Blood Gas Patient Temperature 98.6 98.6 Blood Gas HCO3 16 mmol/L (22-26) 12 mmol/L (22-26) Blood Gas Base Excess -8.7 mmol/L (-2-2) -16.1 mmol/L (-2-2) Blood Gas Oxygen Saturation 98 % (90-100) 71 % (90-100) Arterial Blood pH 7.35 (7.380-7.420) 7.09 (7.380-7.420) Arterial Blood Partial Pressure CO2 30 mmHg (38-42) 41 mmHg (38-42) Arterial Blood Partial Pressure O2 216 mmHG (61-120) 59 mmHG (61-120) Arterial Blood Oxygen Content 13.0 Vol % (12.0-20.0) 10.8 Vol % (12.0-20.0) Arterial Blood Carboxyhemoglobin 1.1 % (0-4) 0.5 % (0-4) Arterial Blood Methemoglobin 0.3 % (0-2) 0.6 % (0-2) Blood Gas Hemoglobin 9.0 G/DL (12.0-16.0) 10.8 G/DL (12.0-16.0) Oxygen Delivery Device VENTILATOR VENTILATOR Blood Gas Ventilator Setting Blood Gas Inspired Oxygen 100 % 60 % White Blood Count 12.5 TH/MM3 (4.0-11.0) Red Blood Count 5.38 MIL/MM3 (4.50-5.90) Hemoglobin 12.7 GM/DL (13.0-17.0) Hematocrit 42.0 % (39.0-51.0) Mean Corpuscular Volume 78.0 FL (80.0-100.0) Mean Corpuscular Hemoglobin 23.7 PG (27.0-34.0) Mean Corpuscular Hemoglobin Concent 30.3 % (32.0-36.0) Red Cell Distribution Width 15.9 % (11.6-17.2) Platelet Count 318 TH/MM3 (150-450) Mean Platelet Volume 7.8 FL (7.0-11.0) Neutrophils (%) (Auto) 71.9 % (16.0-70.0) Lymphocytes (%) (Auto) 18.8 % (9.0-44.0) Monocytes (%) (Auto) 8.8 % (0.0-8.0) Eosinophils (%) (Auto) 0.0 % (0.0-4.0) Basophils (%) (Auto) 0.5 % (0.0-2.0) Neutrophils # (Auto) 8.9 TH/MM3 (1.8-7.7) Lymphocytes # (Auto) 2.3 TH/MM3 (1.0-4.8) Monocytes # (Auto) 1.1 TH/MM3 (0-0.9) Eosinophils # (Auto) 0.0 TH/MM3 (0-0.4) Basophils # (Auto) 0.1 TH/MM3 (0-0.2) CBC Comment DIFF FINAL Differential Comment Blood Urea Nitrogen 24 MG/DL (7-18) Creatinine 1.55 MG/DL (0.60-1.30) Random Glucose 132 MG/DL (74-106) Total Protein 8.0 GM/DL (6.4-8.2) Albumin 2.9 GM/DL (3.4-5.0) Calcium Level 8.5 MG/DL (8.5-10.1) Magnesium Level 2.1 MG/DL (1.5-2.5) Alkaline Phosphatase 158 U/L (45-117) Aspartate Amino Transf (AST/SGOT) 93 U/L (15-37) Alanine Aminotransferase (ALT/SGPT) 26 U/L (12-78) Total Bilirubin 0.7 MG/DL (0.2-1.0) Sodium Level 144 MEQ/L (136-145) Potassium Level 5.0 MEQ/L (3.5-5.1) Chloride Level 110 MEQ/L (98-107) Carbon Dioxide Level 19.2 MEQ/L (21.0-32.0) Anion Gap 15 MEQ/L (5-15) Estimat Glomerular Filtration Rate 52 ML/MIN (>89) Lactic Acid Level 8.6 mmol/L (0.4-2.0) Total Creatine Kinase 2129 U/L (39-308) Creatine Kinase MB 40.9 NG/ML (0.5-3.6) Creatine Kinase MB % 1.9 % (0.0-4.0) Troponin I 4.50 NG/ML (0.02-0.05) Urine Color YELLOW (YELLW/STRAW) Urine Turbidity CLEAR (CLEAR) Urine pH 5.5 (5.0-8.5) Urine Specific [place] 1.024 (1.002-1.035) Urine Protein 100 mg/dL (NEG-TRACE) Urine Glucose (UA) NEG mg/dL (NEG) Urine Ketones NEG mg/dL (NEG) Urine Occult Blood SMALL (NEG) Urine Nitrite NEG (NEG) Urine Bilirubin NEG (NEG) Urine Urobilinogen LESS THAN 2.0 MG/DL (LESS Urine Leukocyte Esterase NEG (NEG) Urine RBC 1 /hpf (0-3) Urine WBC 1 /hpf (0-5) Urine Squamous Epithelial Cells 1 /hpf (0-5) Urine Mucus FEW /lpf (OCC) Microscopic Urinalysis Comment CATH-CULT NOT IND Test 09/11/17 15:15 09/11/17 15:17 09/11/17 15:25 09/11/17 15:53 Prothrombin Time 22.6 SEC (9.8-11.6) Prothromb Time International Ratio 2.2 RATIO Blood Gas Puncture Site RT RADIAL Blood Gas Patient Temperature 98.6 Blood Gas HCO3 15 mmol/L (22-26) Blood Gas Base Excess -12.5 mmol/L (-2-2) Blood Gas Oxygen Saturation 64 % (90-100) Arterial Blood pH 7.11 (7.380-7.420) Arterial Blood Partial Pressure CO2 50 mmHg (38-42) Arterial Blood Partial Pressure O2 50 mmHg (61-120) Arterial Blood Oxygen Content 9.9 Vol % (12.0-20.0) Arterial Blood Carboxyhemoglobin 0.4 % (0-4) Arterial Blood Methemoglobin 1.0 % (0-2) Blood Gas Hemoglobin 11.0 G/DL (12.0-16.0) Oxygen Delivery Device VENTILATOR Blood Gas Ventilator Setting PRVC/AC Blood Gas Inspired Oxygen 100 % Total Creatine Kinase 6878 U/L (39-308) Creatine Kinase MB 111.2 NG/ML (0.5-3.6) Creatine Kinase MB % 1.6 % (0.0-4.0) Troponin I 19.70 NG/ML (0.02-0.05) Lactic Acid Level 8.8 mmol/L (0.4-2.0) Test 09/11/17 17:00 09/11/17 18:33 09/11/17 19:56 09/11/17 22:41 Nasal Screen MRSA (PCR) MRSA NOT DETECTED (NOT White Blood Count 11.2 TH/MM3 (4.0-11.0) Red Blood Count 4.51 MIL/MM3 (4.50-5.90) Hemoglobin 10.9 GM/DL (13.0-17.0) Hematocrit 35.3 % (39.0-51.0) Mean Corpuscular Volume 78.3 FL (80.0-100.0) Mean Corpuscular Hemoglobin 24.3 PG (27.0-34.0) Mean Corpuscular Hemoglobin Concent 31.0 % (32.0-36.0) Red Cell Distribution Width 16.0 % (11.6-17.2) Platelet Count 289 TH/MM3 (150-450) Mean Platelet Volume 7.5 FL (7.0-11.0) Neutrophils (%) (Auto) 88.5 % (16.0-70.0) Lymphocytes (%) (Auto) 7.4 % (9.0-44.0) Monocytes (%) (Auto) 3.9 % (0.0-8.0) Eosinophils (%) (Auto) 0.0 % (0.0-4.0) Basophils (%) (Auto) 0.2 % (0.0-2.0) Neutrophils # (Auto) 9.9 TH/MM3 (1.8-7.7) Lymphocytes # (Auto) 0.8 TH/MM3 (1.0-4.8) Monocytes # (Auto) 0.4 TH/MM3 (0-0.9) Eosinophils # (Auto) 0.0 TH/MM3 (0-0.4) Basophils # (Auto) 0.0 TH/MM3 (0-0.2) CBC Comment DIFF FINAL Differential Comment Blood Urea Nitrogen 22 MG/DL (7-18) Creatinine 1.69 MG/DL (0.60-1.30) Random Glucose 178 MG/DL (74-106) Total Protein 6.2 GM/DL (6.4-8.2) Calcium Level 6.3 MG/DL (8.5-10.1) Sodium Level 147 MEQ/L (136-145) Potassium Level 3.8 MEQ/L (3.5-5.1) Chloride Level 115 MEQ/L (98-107) Carbon Dioxide Level 22.5 MEQ/L (21.0-32.0) Anion Gap 10 MEQ/L (5-15) Estimat Glomerular Filtration Rate 47 ML/MIN (>89) Protein Corrected Calcium 6.7 MG/DL (8.5-10.1) Blood Gas Puncture Site LT FEMORAL Blood Gas Patient Temperature 98.6 Blood Gas HCO3 17 mmol/L (22-26) Blood Gas Base Excess -9.8 mmol/L (-2-2) Blood Gas Oxygen Saturation 86 % (90-100) Arterial Blood pH 7.21 (7.380-7.420) Arterial Blood Partial Pressure CO2 43 mmHg (38-42) Arterial Blood Partial Pressure O2 68 mmHg (61-120) Arterial Blood Oxygen Content 14.0 Vol % (12.0-20.0) Arterial Blood Carboxyhemoglobin 0.6 % (0-4) Arterial Blood Methemoglobin 1.0 % (0-2) Blood Gas Hemoglobin 11.5 G/DL (12.0-16.0) Oxygen Delivery Device VENTILATOR Blood Gas Ventilator Setting PRVC / AC / Blood Gas Inspired Oxygen 100 % Lactic Acid Level 6.1 mmol/L (0.4-2.0) Total Creatine Kinase 9730 U/L (39-308) Creatine Kinase MB 158.7 NG/ML (0.5-3.6) Creatine Kinase MB % 1.6 % (0.0-4.0) Troponin I GREATER THAN 40.00 NG/ML Test 09/12/17 04:00 09/12/17 08:55 White Blood Count 14.5 TH/MM3 (4.0-11.0) Red Blood Count 4.72 MIL/MM3 (4.50-5.90) Hemoglobin 11.3 GM/DL (13.0-17.0) Hematocrit 36.8 % (39.0-51.0) Mean Corpuscular Volume 77.9 FL (80.0-100.0) Mean Corpuscular Hemoglobin 24.0 PG (27.0-34.0) Mean Corpuscular Hemoglobin Concent 30.8 % (32.0-36.0) Red Cell Distribution Width 16.2 % (11.6-17.2) Platelet Count 235 TH/MM3 (150-450) Mean Platelet Volume 7.7 FL (7.0-11.0) Neutrophils (%) (Auto) 90.3 % (16.0-70.0) Lymphocytes (%) (Auto) 6.3 % (9.0-44.0) Monocytes (%) (Auto) 3.2 % (0.0-8.0) Eosinophils (%) (Auto) 0.0 % (0.0-4.0) Basophils (%) (Auto) 0.2 % (0.0-2.0) Neutrophils # (Auto) 13.1 TH/MM3 (1.8-7.7) Lymphocytes # (Auto) 0.9 TH/MM3 (1.0-4.8) Monocytes # (Auto) 0.5 TH/MM3 (0-0.9) Eosinophils # (Auto) 0.0 TH/MM3 (0-0.4) Basophils # (Auto) 0.0 TH/MM3 (0-0.2) CBC Comment DIFF FINAL Differential Comment Prothrombin Time 29.0 SEC (9.8-11.6) Prothromb Time International Ratio 2.9 RATIO Blood Urea Nitrogen 28 MG/DL (7-18) Creatinine 2.12 MG/DL (0.60-1.30) Random Glucose 188 MG/DL (74-106) Total Protein 6.2 GM/DL (6.4-8.2) Albumin 2.2 GM/DL (3.4-5.0) Calcium Level 6.9 MG/DL (8.5-10.1) Alkaline Phosphatase 126 U/L (45-117) Aspartate Amino Transf (AST/SGOT) 356 U/L (15-37) Alanine Aminotransferase (ALT/SGPT) 51 U/L (12-78) Total Bilirubin 0.6 MG/DL (0.2-1.0) Sodium Level 142 MEQ/L (136-145) Potassium Level 3.9 MEQ/L (3.5-5.1) Chloride Level 106 MEQ/L (98-107) Carbon Dioxide Level 22.9 MEQ/L (21.0-32.0) Anion Gap 13 MEQ/L (5-15) Estimat Glomerular Filtration Rate 36 ML/MIN (>89) Lactic Acid Level 6.0 mmol/L (0.4-2.0) Protein Corrected Calcium 7.4 MG/DL (8.5-10.1) Total Creatine Kinase 8490 U/L (39-308) Creatine Kinase MB 158.3 NG/ML (0.5-3.6) Creatine Kinase MB % 1.9 % (0.0-4.0) Troponin I GREATER THAN 40.00 NG/ML Blood Gas Puncture Site RT RADIAL Blood Gas Patient Temperature 98.6 Blood Gas HCO3 21 mmol/L (22-26) Blood Gas Base Excess -4.5 mmol/L (-2-2) Blood Gas Oxygen Saturation 95 % (90-100) Arterial Blood pH 7.31 (7.380-7.420) Arterial Blood Partial Pressure CO2 42 mmHg (38-42) Arterial Blood Partial Pressure O2 98 mmHg (61-120) Arterial Blood Oxygen Content 15.2 Vol % (12.0-20.0) Arterial Blood Carboxyhemoglobin 0.9 % (0-4) Arterial Blood Methemoglobin 1.0 % (0-2) Blood Gas Hemoglobin 11.3 G/DL (12.0-16.0) Oxygen Delivery Device VENTILATOR Blood Gas Ventilator Setting PRVC/AC Blood Gas Inspired Oxygen 80 % Result Diagram: 09/12/170 09/12/17 0400 Microbiology Microbiology Date/Time Source Procedure Growth Status 09/11/17 10:30 Blood Peripheral Aerobic Blood Culture - Preliminary NO GROWTH IN 1 DAY Resulted 09/11/17 10:30 Blood Peripheral Anaerobic Blood Culture - Preliminary NO GROWTH IN 1 DAY Resulted 09/11/17 10:20 Blood Peripheral Aerobic Blood Culture - Preliminary NO GROWTH IN 1 DAY Resulted 09/11/17 10:20 Blood Peripheral Anaerobic Blood Culture - Preliminary NO GROWTH IN 1 DAY Resulted 09/11/17 20:00 Nasal Washing Influenza Types A,B Antigen (LIZ) - Final Positive For Flu A Antigen Complete 09/11/17 19:30 Sputum Endotracheal Gram Stain - Final Resulted 09/11/17 19:30 Sputum Endotracheal Sputum Culture - Preliminary RARE GROWTH NORMAL RESPIRATORY [place] ... Resulted 09/11/17 20:00 Urine Random Urine Legionella Antigen - Final PRESUMPTIVE NEGATIVE FOR LEGIONELLA P... Complete 09/11/17 20:00 Urine Random Urine Streptococcus pneumoniae Antigen (M - Final PRESUMPTIVE NEGATIVE FOR STREPTOCOCCU... Complete 09/11/17 10:27 Urine Catheterized Urine Legionella Antigen - Final PRESUMPTIVE NEGATIVE FOR LEGIONELLA P... Complete 09/11/17 10:27 Urine Catheterized Urine Streptococcus pneumoniae Antigen (M - Final PRESUMPTIVE NEGATIVE FOR STREPTOCOCCU... Complete Procedures * 09/11/17 -endotracheal intubation . Assessment and Plan Disease Oriented Problem List: (1) Septic shock (2) Acute respiratory failure (3) Aspiration pneumonia (4) Acute on chronic kidney failure (5) Atrial fibrillation with RVR Symptom Scale: (1) Dyspnea 0-10 Scale: Unable to quantify Comment: Currently intubated on mechanical ventilation. (2) Debility 0-10 Scale: Unable to quantify Comment: Progressive. Pertinent Non-Medical Issues Psychosocial: Patient originally from [place], [place]. since 1999. He was for 45 years, has 3 children. 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 Spiritual: Yazidi amggy. Legal: Power of corporate associate attorney completed. Ethical issues impacting care: Patient unable to participating in medical decision-making secondary to clinical condition. His 3 children are serving as healthcare proxy decision makers. . Important Contacts Daughter Dwain Rutherford son Bryon Son Brian . Prognosis Mr. Tomlinson is an 81-year-old male with a medical history significant for dementia, CHF, PAD, atrial fibrillation, hypertension, acute on chronic kidney disease. Patient with progressive functional decline since January 2017, requiring placement to a intermediate facility x 2 since January. Patient currently on septic shock requiring vasopressors and mechanical ventilation. Overall prognosis for survival is very poor. . Code Status: Full Code Plan * CODE STATUS: Full code. Risks, benefits and limitations of CPR were discussed at length with patient's family. Family was encouraged to consider CODE STATUS given very poor prognosis. * HEALTHCARE DECISION-MAKING: Patient lacks medical decision-making secondary to clinical condition, comatose. Will not regain capacity. No advance directives completed. As per [place] statute, healthcare proxy decision-making falls to the majority of patient's children for which he has 3. All his 3 children Brian Prakash and Bryon wishing to participate in medical decision- making. * GOALS OF CARE: Family electing to continue aggressive management to include full code. Lengthy conversation with patient's family regarding very poor prognosis for survival, not anticipated to survive the next 24 hrs. Comfort- directed care/compassionate withdrawal of life support has been introduced to family given very poor prognosis. * SYMPTOMS: = Dyspnea, multifactorial. Currently intubated on mechanical ventilation. = Debility, progressive. * Case discussed at length with Dr. Prince and bedside RN. * Palliative care contact information has been provided to patient's family. * Palliative care will continue to follow-up for further clarifications of goals of care as patient's clinical course continues to evolve. . Time Spent Total Floor Time (mins): 46 (total time to include review of medical records, physical exam, severeal telephone conversation with pt's daughter for GOC conversation, case discussion with Dr Prince and bedside RN. ) >50% Counseling/Coord of Care: Yes Attestation To help prompt me to consider important information that might be impacting today's encounter and assessment, information from prior notes written by myself or my colleagues may have been "brought forward" into today's note. My signature on this note, however, is an attestation that I personally performed the exam, history, and/or decision-making noted today, and, unless otherwise indicated, the interactions with patient, family, and staff as well as the review of records all occurred today. I also attest that the listed assessment and stated plan reflect my best clinical judgment today based on the combination of historical information, prior notes, and today's exam/ interactions. When time spent is documented, it refers only to time spent today by the signer, or if indicated, combined time spent today by collaborating physician/nurse practitioner. Cassy Rodríguez Sep 12, 2017 14:00
--- NOTE | 2017-09-12 15:32 | ECHRPT ---
Indication: elevated trop CONCLUSIONS Normal left ventricular size. The left ventricular systolic function is severely reduced with an estimated ejection fraction of 25 %. Moderate to severe left ventricular hypertrophy. The right ventricular systoilc function is moderately decreased. Mild mitral valve regurgitation. There is mild tricuspid valve regurgitation. The estimated pulmonary arterial pressure is 56 mmHg. BP: / HR: Rhythm: MEASUREMENTS (Male / Female) Normal Values Technical Quality:Good 2D ECHO LV Diastolic Diameter PLAX 3.4 cm 4.2 - 5.9 / 3.9 - 5.3 cm LV Systolic Diameter PLAX 3.2 cm IVS Diastolic Thickness 2.0 cm 0.6 - 1.0 / 0.6 - 0.9 cm LVPW Diastolic Thickness 1.6 cm 0.6 - 1.0 / 0.6 - 0.9 cm LV Relative Wall Thickness 1.1 RV Internal Dim ED PLAX 2.4 cm M-MODE Aortic Root Diameter MM 3.1 cm LA Systolic Diameter MM 3.5 cm LA Ao Ratio MM 1.1 AV Cusp Separation MM 1.8 cm DOPPLER Mitral E Point Velocity 41.5 cm/s Mitral A Point Velocity 31.1 cm/s Mitral E to A Ratio 1.3 LV E' Lateral Velocity 6.2 cm/s Mitral E to LV E' Lateral Ratio 6.7 LV E' Septal Velocity 3.7 cm/s Mitral E to LV E' Septal Ratio 11.1 TR Peak Velocity 338.0 cm/s TR Peak Gradient 45.7 mmHg Right Atrial Pressure 10.0 mmHg Pulmonary Artery Systolic Pressu 55.7 mmHg Right Ventricular Systolic Press 55.7 mmHg FINDINGS LEFT VENTRICLE Normal left ventricular size. The left ventricular systolic function is severely reduced with an estimated ejection fraction less than 20%. RIGHT VENTRICLE The right ventricular systoilc function is moderately decreased. LEFT ATRIUM The left atrial size is normal. RIGHT ATRIUM The right atrial size is normal. ATRIAL SEPTUM Normal atrial septal thickness without atrial level shunting by limited color doppler interrogation. AORTA The aortic root and proximal ascending aorta are normal in size on limited imaging. MITRAL VALVE Structurally normal mitral valve. Mild mitral valve regurgitation. AORTIC VALVE Trileaflet aortic valve. No aortic valve stenosis. No aortic valve regurgitation. TRICUSPID VALVE Structurally normal tricuspid valve. There is mild tricuspid valve regurgitation. The estimated pulmonary arterial pressure is 55.7 mmHg. PULMONARY VALVE No pulmonary valve regurgitation or stenosis. VESSELS The inferior vena cava is normal in size. PERICARDIUM No pericardial effusion. Otakar Quadrat MD, FACC (Electronically Signed) Final Date:12 September 2017 15:31
--- NOTE | 2017-09-12 21:16 | HHI.FPPN ---
Addendum to progress note ADDENDUM Reason for addendum: Additonal documentation Additional information Resident team paged for CODE BLUE at [phone]. Upon arrival Dr. Prince was leading the resuscitative effort and stated he could use additional people to rotate through compressions. Prior to starting compressions central pulses were checked and the patient was noted to have a pulse at that time. This was confirmed with Doppler. The patient obtained a blood pressure at that time, sustained a blood pressure and heart rate for several minutes then entered a shockable rhythm. Patient was defibrillated, compressions were restarted. After a set of impressions pulses were checked, pulses were noted by palpation and Doppler. Dr. Prince released the resident team and continue to manage status post ROSC. Albert Velasco MD R1 Sep 12, 2017 21:16
--- NOTE | 2017-09-12 21:22 | HHI.PR ---
Addendum to Inpatient Note Addendum Reason: Additional Documentation Additional Information Resident team paged to respond to CODE BLUE at [phone] on 09/12/17. Upon arrival Dr. Prince was leading the resuscitative effort. The resident team was paged to a second CODE BLUE in the hospital, Dr. Prince released resident team at that time. Albert Velasco MD R1 Sep 12, 2017 21:22
--- NOTE | 2017-09-12 21:31 | HHI.PR ---
Addendum to Inpatient Note Addendum Reason: Additional Documentation Additional Information Resident team paged for CODE ABELARDO at 1156 on 09/12/17. Upon arrival Dr. Prince was leading the resuscitative effort and stated he could use additional people to rotate through compressions. Prior to starting compressions central pulses were checked and the patient was noted to have a pulse at that time. This was confirmed with Doppler. The patient obtained a blood pressure at that time, sustained a blood pressure and heart rate for several minutes then entered a shockable rhythm. Patient was defibrillated, compressions were restarted. After a set of impressions pulses were checked, pulses were noted by palpation and Doppler. Dr. Prince released the resident team and continue to manage status post ROSC. Albert Velasco MD R1 Sep 12, 2017 21:31
--- NOTE | 2017-09-12 21:33 | HHI.PR ---
Addendum to Inpatient Note Addendum Reason: Additional Documentation Additional Information Resident team was paged for a CODE BLUE [id number] and 09/12/17. Upon arrival Dr. Prince was leading the resuscitative effort and stated he could use additional people to rotate through compressions. A pulses checked, was not present at that time and one round of CPR was performed. After a set of impressions pulses were checked, pulses were noted by palpation and Doppler. Dr. Prince released the resident team and continue to manage status post ROSC. Albert Velasco MD R1 Sep 12, 2017 21:33
--- NOTE | 2017-09-12 21:42 | HHI.PR ---
Addendum to Inpatient Note Addendum Reason: Additional Documentation Additional Information Resident team was paged at [phone] on 09/12/17 for a CODE BLUE. While en-route the resident team spoke with a palliative care steam shovel operating engineer who was working with the patient. She alerted us that just received notification from Dr. Prince that resuscitative efforts had ceased. The resident team later called to verify. Albert Velasco MD R1 Sep 12, 2017 21:42
[2017-09-14] MEDS ORDERED: PHARMACY ORDERED LAB ONE (13:45)
== END 2017-09-12 15:04 | disposition expired | DRG 871 ==
LOC: NEPE 09:49 → NEDA 13:04 → HIMW 13:48 → HIMN 14:10 → HIMW 14:32
PROVIDERS: ADMIT Internal Medicine Critical Care Medicine; ATTEND Internal Medicine Critical Care Medicine
PROC: 5A1935Z Respiratory Ventilation, Less than 24 Consecutive Hours (ICD-10-PCS; principal; 2017-09-11)
PROC: 02HV33Z Insertion of Infusion Device into Superior Vena Cava, Percutaneous Approach (ICD-10-PCS; 2017-09-11)
DX: A41.9 Sepsis, unspecified organism (principal); R65.21 Severe sepsis with septic shock; I21.4 Non-ST elevation (NSTEMI) myocardial infarction; J96.00 Acute respiratory failure, unspecified whether with hypoxia or hypercapnia; J69.0 Pneumonitis due to inhalation of food and vomit; E87.2 Acidosis; N17.9 Acute kidney failure, unspecified; G93.40 Encephalopathy, unspecified; D68.9 Coagulation defect, unspecified; M62.82 Rhabdomyolysis; I13.0 Hypertensive heart and chronic kidney disease with heart failure and stage 1 through stage 4 chronic kidney disease, or unspecified chronic kidney disease; E83.51 Hypocalcemia; I48.2 Chronic atrial fibrillation; I50.9 Heart failure, unspecified; J09.X2 Influenza due to identified novel influenza A virus with other respiratory manifestations; I25.10 Atherosclerotic heart disease of native coronary artery without angina pectoris; E78.5 Hyperlipidemia, unspecified; I73.9 Peripheral vascular disease, unspecified; D64.9 Anemia, unspecified; F03.90 Unspecified dementia, unspecified severity, without behavioral disturbance, psychotic disturbance, mood disturbance, and anxiety; N18.9 Chronic kidney disease, unspecified; I34.1 Nonrheumatic mitral (valve) prolapse; Z91.81 History of falling; Z86.73 Personal history of transient ischemic attack (TIA), and cerebral infarction without residual deficits; Z87.891 Personal history of nicotine dependence
CPT/HCPCS: 36556; 36600; 51702; 70450; 71010; 71250; 74176; 80048; 80053; 81001; 82550; 82552; 82805; 83605; 83735; 84155; 84484; 85025; 85610; 87040; 87070; 87205; 87449; 87641; 87804; 92950; 93005; 93306; 94002; 94003; 94640; 94664; 96361; 96365; 96366; 96368; C9113; J0456; J0610; J0696; J1720; J2370; J2543; J3010; J3370; J7030; J7050; J7060; J7070